=== PATIENT | male | born 2000 | race Two or more races ===

== ENCOUNTER 2025-02-25 14:05 | Inpatient (IN) | payer MEDICAID, SELFPAY ==
[2025-02-25] VITALS (10 sets, daily range): BP systolic 116–133; BP diastolic 71–82; PULSE 91–135; RESP 18–94; TEMP 36.3–38.1; O2SAT 93–96
--- NOTE | 2025-02-25 15:17 | PD.EDURI ---
Upper Respiratory Inf. RME/HPI General Chief Complaint: Flu Like Symptoms Stated Complaint: COUGH FOR 3 MONTHS WITH SHORTNSS OF BREATH Time Seen by Provider: 02/25/25 15:16 Source: patient and family Arrival date/time: 02/25/25 14:05 Mode of arrival: ambulatory Limitations: no limitations and language barrier RME / HPI Complaint: cough and sore throat Onset (ago): month(s) (X 4 months) Duration: constant Severity scale (1-10): 5 Related Data Previous Rx's ?Medication ?Instructions ?Recorded albuterol sulfate 90 mcg/actuation 1 inh inhalation QID #6.7 grams 02/25/25 aerosol inhaler azithromycin 250 mg tablet See Rx Instructions PO .COMPLEX #6 02/25/25 (Zithromax Z-Tacho) tabs promethazine 6.25 mg/5 mL oral 6.25 mg (5 mL) PO TID PRN cough 02/25/25 syrup #120 mL Allergies Allergy/AdvReac Type Severity Reaction Status Date / Time No Known Allergies Allergy Verified 02/25/25 14:08 Review of Systems Constitutional Constitutional: Reports system reviewed and no additional complaints, except as documented Eyes Eyes: Reports system reviewed and no additional complaints, except as documented, Denies dry eyes, Denies exophthalmos and Reports floaters Cardiovascular Cardiovascular: Denies chest pain with activity and Denies claudication ED Exam General Limitations: Present no limitations and language barrier General appearance: Present alert and in no apparent distress Head Head exam: Present atraumatic Eye Eye exam: Present normal appearance, PERRL and EOMI ENT ENT exam: Present normal exam, normal oropharynx and mucous membranes moist Neck Neck exam: Present normal inspection, full ROM and trachea midline Chest Chest inspection: Present normal inspection and symmetric chest wall rise Respiratory Respiratory exam: Present normal lung sounds bilaterally Cardiovascular Cardiovascular exam: Present regular rate, normal rhythm and normal heart sounds Abdominal Exam Abdominal exam: Present soft and normal bowel sounds Extremities Exam Extremities exam: Present normal inspection and full ROM Back Exam Back exam: Present normal inspection and full ROM Neurological Exam Neurological exam: Present alert, oriented X3 and CN II-XII intact Psychiatric Psychiatric exam: Present normal affect and normal mood Skin Skin exam: Present warm, dry, intact and normal color Course Course Course Narrative: Patient will have a chest x-ray months here. Orders Category Date Time Status XR chest 2V Stat Exams 02/25/25 15:20 Ordered Vital Signs Vital signs: Vital Signs Temperature 99.5 F 02/25/25 15:02 Pulse Rate 108 H 02/25/25 15:02 Respiratory Rate 18 02/25/25 15:02 Blood Pressure 133/82 H 02/25/25 15:02 Pulse Oximetry (%) 95 02/25/25 15:02 Oxygen Delivery Method Room Air 02/25/25 15:02 Discharge Plan Plan Patient Disposition: HOME (Self Care) Discharge Disposition comment: NA Patient condition on transfer: Stable Prescriptions/Referrals Prescriptions/Med Rec: New azithromycin [Zithromax Z-Tacho] 250 mg tablet See Rx Instructions .ROUTE .COMPLEX Qty: 6 0RF Rx Instructions: For 250 mg dose pack: take 500 mg today (day 1), then 250 mg for 4 days (days 2-5) albuterol sulfate 90 mcg/actuation HFA aerosol inhaler 1 inh inhalation QID Qty: 6.7 0RF promethazine 6.25 mg/5 mL syrup 6.25 mg PO TID MDD 15 ml PRN (Reason: cough) Qty: 120 0RF Rx Instructions: 3 doses during day; last dose no later than 4 hr before bedtime Problem List Clinical Impression: Bronchitis Impression comment: Bronchitis Patient/Caregiver Discharge Instructions Discharge Activity: resume usual activities Education Materials: ED Bronchitis with Wheezing (Adult) Print Language: Citizen Of [place] PA/ENTERTAINMENT MUSICIAN Supervising Physician PA/ENTERTAINMENT MUSICIAN Supervising Physician: Jett
--- NOTE | 2025-02-25 15:20 | XR_ITS ---
Examination: PA lateral chest 2 views TECHNIQUE: Upright PA lateral chest 2 views Date and time: February 25, 2025 1531 hours INDICATIONS: Shortness of breath wheezing beginning 5 months ago. FINDINGS: Extensive bilateral cavitary parenchymal disease especially in the right middle lobe Normal heart size The osseous structures are intact IMPRESSION: Extensive bilateral cavitary parenchymal disease, differential would include active tuberculosis Recommend CT chest without contrast follow-up
--- NOTE | 2025-02-25 16:12 | XR_ITS ---
Examination: CT chest, without intravenous contrast. Sagittal and coronal 2-D reconstructions. Exam date and time: February 25, 2025 1657 hours INDICATIONS: Coughing fever for months CTDI:vol (mGy) 10.5 DLP: (mGycm) 370 Technique: Multiple 3.0 mm axial sections of the chest to been obtained. Bone and lung density settings are obtained. Sagittal and coronal 2-D reconstructions have been obtained. Low dose protocols were performed. One or more of the following dose reduction techniques were used; automated exposure control, adjustment of the mA and/or KV according to patient size, use of iterative reconstruction technique. Findings: No thoracic aortic aneurysm dilatation Pulmonary artery segments are not enlarged. No paratracheal tracheobronchial or bronchopulmonary adenopathy. 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
--- NOTE | 2025-02-25 16:13 | PD.EDRME ---
Rapid Medical Screening Exam RME Arrival date/time: 02/25/25 14:05 Chief Complaint: Flu Like Symptoms Time Seen by Provider: 02/25/25 15:16 Vital signs: Vital Signs Temperature 99.5 F 02/25/25 15:02 Pulse Rate 108 H 02/25/25 15:02 Respiratory Rate 18 02/25/25 15:02 Blood Pressure 133/82 H 02/25/25 15:02 Pulse Oximetry (%) 95 02/25/25 15:02 Oxygen Delivery Method Room Air 02/25/25 15:02 Presents to the ED with complaint of coughing for months with a rapid loss of weight of up to 25 pounds. Vital signs reviewed by provider: Yes
[2025-02-25 17:01] LABS: Lactate (Lactic Acid) 1.2 mMol/L (0.4-2.0)
[2025-02-25 17:05] LABS: Basophils # (Auto) 0.1 Thou/mm3 (0.0-0.2); Basophils % (Auto) 1 % (0-2.5); Eosinophils # (Auto) 0.4 Thou/mm3 (0.0-0.5); Eosinophils % (Auto) 2 % (0-10); Hematocrit 38.2 % (41.0-53.0); Hemoglobin 12.4 g/dL (13.5-16.0); Immature Granulocytes % (Auto) 1 % (0-0); Lymphocytes # (Auto) 2.9 Thou/mm3 (1.0-4.8); Lymphocytes % (Auto) 16 % (10-50); Mean Corpuscular HGB Conc 32.5 g/dl (31.0-37.0); Mean Corpuscular Hemoglobin 24.9 pg (25.0-35.0); Mean Corpuscular Volume 77 fL (80-100); Monocytes # (Auto) 1.4 Thou/mm3 (0.0-0.8); Monocytes % (Auto) 8 % (0-12); Neutrophils # (Auto) 13.3 Thou/mm3 (1.8-7.7); Neutrophils % (Auto) 73 % (37-80); Nucleated Red Blood Cell % 0 /100 WBC (0); Platelet Count 828 Thou/mm3 (140-440); RDW Standard Deviation 41.2 fL (35.1-43.9); Red Blood Count 4.97 Miln/mm3 (4.50-5.90); White Blood Count 18.2 Thou/mm3 (3.8-10.6)
--- NOTE | 2025-02-25 17:20 | PD.EDURI ---
Upper Respiratory Inf. RME/HPI General Chief Complaint: Flu Like Symptoms Stated Complaint: COUGH FOR 3 MONTHS WITH SHORTNSS OF BREATH Time Seen by Provider: 02/25/25 15:16 Arrival date/time: 02/25/25 14:05 RME / HPI RME / HPI Narrative: 24 year old male with no stated medical history presents to the ED for evaluation of a dry cough beginning 5 months ago. Accompanied by a scratchy throat , 20lbs weight loss over the last 5 months, and shortness of breath. Denies any history of similar symptoms or consulting with PCP. No other associated symptoms or complaints reported. Denies fever, chills, sweating. Denies chest pain. Denies vomiting, diarrhea, constipation. Denies dysuria, urinary frequency and urgency. Related Data Allergies Allergy/AdvReac Type Severity Reaction Status Date / Time No Known Allergies Allergy Verified 02/25/25 14:08 Review of Systems Review of Systems Narrative Review of Systems: GEN: No fever, no chills, + weight loss EYES: No discharge, no visual changes, no pain HEENT: No ear pain, no congestion, +scratchy throat PULM: +shortness of breath, +cough, no congestion CV: No chest pain, no dyspnea on exertion, no palpitations GI: No nausea, no vomiting, no diarrhea, no pain, no constipation : No frequency, no urgency, no dysuria MUSC/SKEL: No joint pain, no back pain SKIN: No rash PSYCH: No hallucinations, no depression HEME/LYMPH: No easy bleeding or bruising tendencies NEURO: No weakness, no headache Past Medical History Past Medical History CARDIAC: Negative Congestive Heart Failure RESPIRATORY: Negative Chronic Obstructive Pulmonary Disease (COPD) GENITOURINARY: Negative Renal Disease ENDOCRINE: Negative Diabetes Mellitus Type 1 or Diabetes Mellitus Type 2 Social History SMOKING STATUS: Former smoker ED Exam Narrative Physical exam: GENERAL APPEARANCE: alert and oriented x 4, well-developed, well-nourished, no acute distress HEENT: Normocephalic, atraumatic; pupils equal, round, reactive to light; EOMI; mucous membranes pink, moist; oropharynx clear NECK: Supple LUNGS: CTABL; no wheezes, no rales, no rhonchi HEART: Regular rate, regular rhythm; normal S1, S2; no murmurs ABDOMEN: non distended; normal BS; soft, no tenderness, no guarding, no rebound; no masses, no organomegaly, no hernia BACK: no CVA tenderness EXTREMITIES: atraumatic; no edema NEUROLOGIC: awake; alert and oriented x4; cranial nerves II-XII grossly intact; no focal sensory or motor deficits PSYCHIATRIC: appropriate mood and affect SKIN: warm, dry, normal color; no rashes Course Course Course Narrative: chest xray ordered to help determine etiology of cough. Quality Measures none Orders Category Date Time Status CT chest wo con Stat Exams 02/25/25 16:12 Completed XR chest 2V Stat Exams 02/25/25 15:20 Completed Blood Culture (Lab) Stat Lab 02/25/25 16:54 Received CBC Stat Lab 02/25/25 16:54 Completed CMP [Comprehensive Metabolic Panel] Stat Lab 02/25/25 16:54 Completed Cocci Serology IgM with reflex to IgG [Cocci Serology, Lab 02/25/25 16:54 Received Unk History] Stat Lactic Acid [Lactate (Lactic Acid)] Stat Lab 02/25/25 16:54 Completed Path Review Blood Smear Stat Lab 02/25/25 16:54 Completed Procalcitonin Stat Lab 02/25/25 16:54 Completed Quantiferon-TB* Stat Lab 02/25/25 16:43 Ordered Vital Signs Vital signs: Vital Signs Temperature 99.5 F 02/25/25 15:02 Pulse Rate 108 H 02/25/25 15:02 Respiratory Rate 18 02/25/25 15:02 Blood Pressure 133/82 H 02/25/25 15:02 Pulse Oximetry (%) 95 02/25/25 15:02 Oxygen Delivery Method Room Air 02/25/25 15:02 Pulse ox is 95% on room air which is adequate. Upper Respiratory Infection MDM Narrative MDM Narrative:: Hortencia Wolfe am scribing for and in the presence of Dr. Frausto. Patient data External records reviewed:: [facility] previous records (No previous visits for review ) Clinical information provided by:: patient Social determinants that could affect healthcare access:: none Patient has the following chronic illnesses:: None reported How is presenting disease/condition affected by chronic disease/condition?: no chronic disease Evaluation data The following diagnostics were reviewed and interpreted by me:: lab results and radiology exam(s) Lab and/or radiology exams considered but not ordered:: None Interpretation Summary: Ordering Physician: Morales Valverde PA-C Date of Service: 02/25/25 Procedure(s): XR chest 2V Accession Number(s): [id number] cc: Chase Sheppard MD; Morales Valverde PA-C; NO PRIMARY/FAMILY,PHYSICIAN~ Examination: PA lateral chest 2 views TECHNIQUE: Upright PA lateral chest 2 views Date and time: February 25, 2025 1531 hours INDICATIONS: Shortness of breath wheezing beginning 5 months ago. FINDINGS: Extensive bilateral cavitary parenchymal disease especially in the right middle lobe Normal heart size The osseous structures are intact IMPRESSION: Extensive bilateral cavitary parenchymal disease, differential would include active tuberculosis Recommend CT chest without contrast follow-up Dictated By: Chase Sheppard MD Signed By: <Electronically signed by Chase Sheppard MD in OV> 02/25/25 1547 Ordering Physician: Morales Valverde PA-C Date of Service: 02/25/25 Procedure(s): CT chest wo con Accession Number(s): [id number] cc: Chase Sheppard MD; Morales Valverde PA-C; NO PRIMARY/FAMILY,PHYSICIAN~ Examination: CT chest, without intravenous contrast. Sagittal and coronal 2-D reconstructions. Exam date and time: February 25, 2025 1657 hours INDICATIONS: Coughing fever for months CTDI:vol (mGy) 10.5 DLP: (mGycm) 370 Technique: Multiple 3.0 mm axial sections of the chest to been obtained. Bone and lung density settings are obtained. Sagittal and coronal 2-D reconstructions have been obtained. Low dose protocols were performed. One or more of the following dose reduction techniques were used; automated exposure control, adjustment of the mA and/or KV according to patient size, use of iterative reconstruction technique. Findings: No thoracic aortic aneurysm dilatation Pulmonary artery segments are not enlarged. No paratracheal tracheobronchial or bronchopulmonary adenopathy. 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 (list below): Yes Consultation #1 (Physician, Specialty, Details): I spoke with resident working with hospitalist Dr. Becerra. Discussed patients PMHx, HPI, ED course, exam findings, labs, and radiology results. Diagnosis Upper Respiratory Differential Diagnosis: upper respiratory infection, sinusitis, viral infection, bronchitis, influenza and pharyngitis Most likely diagnosis given after review of the tests above:: Cavitary lung lesions Admission Indicated Admission indicated?: indicated Admission Request Was there a request for admission?: Yes Admission Attestation Admission request attestation: Discussed case with [] from Hospitalist service regarding admission. Discussed patients ED course, exam findings, labs, and radiology results. The Hospitalist [agrees,declines] to accept the patient for admission. Disposition Plan Disposition Plan: Admit Discharge Plan Plan Patient Disposition: Admit Acute Care w/in Hospital Problem List Clinical Impression: Cavitary lesion of lung Impression comment: Bronchitis Patient/Caregiver Discharge Instructions Discharge Activity: resume usual activities Print Language: [place] Stand Alone Forms: Geovanna Award Info., Patient Portal Info Letter
[2025-02-25 17:27] LABS: Path Review Blood Smear Sent to Pathologist
[2025-02-25 17:30] LABS: Alanine Aminotransferase 16 U/L (10-49); Albumin, Serum 4.4 gm/dL (3.5-5.0); Albumin/Globulin Ratio 1.1 (1.2-2.2); Alkaline Phosphatase 77 U/L (46-116); Anion Gap 11 (7-16); Aspartate Amino Transferase 19 U/L (0-34); BUN/Creatinine Ratio 11 Ratio (12-20); Bilirubin,Total 0.4 mg/dL (0.3-1.2); Blood Urea Nitrogen 9 mg/dL (9-23); Calcium 8.8 mg/dL (8.3-10.6); Calcium (Corrected) 8.8 mg/dL (8.5-10.1); Carbon Dioxide 25.1 mMol/L (20.0-31.0); Chloride 99 mMol/L (98-107); Creatinine (Component) 0.8 mg/dL (0.6-1.3); Glucose 103 mg/dL (74-106); Osmolality,Calculated 268 (275-295); Procalcitonin 0.11 ng/ml (0.0-0.49); Sodium 135 mMol/L (136-145); Total Protein 8.4 gm/dL (5.7-8.2); eGFR > 60 See Note
[2025-02-25 17:50] LABS: HIV (1&2) Antibody Rapid Non-Reactive
--- NOTE | 2025-02-25 18:37 | PD.RESHP ---
Documentation for date of: 02/25/25 [facility] History of Present Illness Chief complaint: SOB, Sore throat, Cough History of present illness: 24-year-old male with no relevant past medical history was admitted to the hospital on 03/03/2025 after coming to the ED with complaints of cough and shortness of breath. On assessment patient stated that he has been having around 5 months of some sore throat accompanied with some cough which is sometimes productive and sometimes nonproductive. He states that he has also lost around 20 pounds in the last 6 months, but he stated that this is likely because he has been sometimes skipping breakfast because he has been either lazy or just forgets to eat. Patient stated that he has not had any blood in the sputum when he does have some productive cough and he also denied having any night sweats. Patient states that he moved from [place] around 2 years ago, but has not been out of the country ever since. He states he has not had any sick contacts and that he lives alone at this time. Patient currently works handling crustaceans/seafood, but he did work on the joy around 1 month and a half when he initially came to the clinic. He also stated that he has smoked marijuana, but denies any vaping or smoking. Denies any fevers, chills, sweats, diarrhea, blood in the urine, blood in the stools, or abdominal pain. ED course: Initially came in tachycardic and hypertensive, but afebrile. Initial labs were relevant for leukocytosis (18.2) and thrombocytosis (828). Initial imaging included chest x-ray which showed some extensive bilateral cavitary parenchymal disease and chest CT which showed severe cavitary parenchymal disease throughout both lungs. Some miliary nodular pattern also was seen throughout both lungs in the chest CT. PMH: No relevant past medical history Social Hx: Denies smoking cigarettes, admits to social drinking, admits smoking marijuana Medications: None Review of Systems Review of Systems Narrative Review of Systems: Constitutional: Denies sweats, Admits weight loss, Denies fever, Denies chills. HEENT: Denies hearing loss, Denies ear pain, Admits sore throat, Denies postnasal drip, Denies double vision, Denies blurry vision. Respiratory: Admits shortness of breath, Admits cough, Denies wheezing. Cardiovascular: Denies chest pain, Denies palpitations, Denies sudden loss of consciousness. GI: Denies blood in stool, Denies constipation, Denies abdominal pain, Denies difficulty swallowing, Denies nausea or vomit. : Denies urinary incontinence, Denies pain while urinating, Denies increased urinary frequency. MSK: Denies joint pain, Denies joint swelling, Denies numbness. Skin: Denies rash, Denies itching, Denies easy bruising. Neuro: Denies headaches, Denies dizziness, Denies seizures. Past Medical History Past Medical History CARDIAC: Negative Congestive Heart Failure RESPIRATORY: Negative Chronic Obstructive Pulmonary Disease (COPD) GENITOURINARY: Negative Renal Disease ENDOCRINE: Negative Diabetes Mellitus Type 1 or Diabetes Mellitus Type 2 Social History SMOKING STATUS: Former smoker Exam Vital Signs Temp Pulse Resp BP Pulse Ox O2 Del Method 99.5 F 108 H 18 133/82 H 95 Room Air 02/25/25 15:02 02/25/25 15:02 02/25/25 15:02 02/25/25 15:02 02/25/25 15:02 02/25/25 15:02 Narrative Exam General: A/O x3, no acute distress, well-nourished, well-developed Eyes: PERRL, EOMI. Anicteric, vision grossly intact. Ears: No ear pain, no ear discharge, Hearing grossly intact. Nose: No nasal discharge. Mouth/Throat: Moist mucous membranes, no redness, no lesions. Neck: Neck supple, non-tender, no cervical lymphadenopathy. Lungs: Clear АНДРЕЙ to auscultation and percussion, No accessory muscle use. Cardio: Normal S1/S2, regular rhythm, tachycardic, no murmurs, no JVD Abdomen: Soft, non-tender, no palpable masses, peristalsis present, no guarding or rebound. Extremities: Symmetrical, no significant deformities, no peripheral edema , non-tender, peripheral pulses presents. Skin: No rashes, no lesions, warm to touch. Neuro: No focal neurological deficits. motor and sensory intact Psych: Cooperative, appropriate mood and effect. Results: Labs 02/26/25 04:43 02/26/25 04:43 Labs: Short CBC 02/25/25 Range/Units 16:54 WBC 18.2 H (3.8-10.6) Thou/mm3 Hgb 12.4 L (13.5-16.0) g/dL Hct 38.2 L (41.0-53.0) % Plt Count 828 H (140-440) Thou/mm3 BMP 02/25/25 16:54 Sodium 135 L Potassium 4.0 Chloride 99 Carbon Dioxide 25.1 BUN 9 Creatinine 0.8 Glucose 103 Calcium 8.8 Liver Function 02/25/25 Range/Units 16:54 Total Bilirubin 0.4 (0.3-1.2) mg/dL AST 19 (0-34) U/L ALT 16 (10-49) U/L Alkaline Phosphatase 77 (46-116) U/L Albumin 4.4 (3.5-5.0) gm/dL Quality Measures Quality Measures none Medications Home Medications and Allergies Home Medications ?Medication ?Instructions ?Recorded ?Confirmed ?Type No Known Home Medications 02/26/25 02/26/25 History Allergies Allergy/AdvReac Type Severity Reaction Status Date / Time No Known Allergies Allergy Verified 02/25/25 14:08 Visit Medications Acetaminophen (Acetaminophen 325 Mg Tablet) 650 mg PO Q6H PRN PRN Reason: pain and Fever >100.4 Stop: 03/27/25 18:31 Hydrocodone Bitart/Acetaminophen (Hydrocodone/Apap 5/325 Tablet) 1 tab PO Q4HR PRN PRN Reason: PAIN SCALE 4-6 (Moderate Stop: 03/02/25 18:31 Azithromycin (Azithromycin 250 Mg Tablet) 500 mg PO QDAY YUMIKO Stop: 03/04/25 18:44 Enoxaparin Sodium (Enoxaparin Sod Inj 40 Mg/0.4 Ml Syringe) 40 mg SC QDAY [facility] Stop: 03/12/25 08:59 Sodium Chloride (Ns) 1,000 mls @ 80 mls/hr IV .[id number] YUMIKO Stop: 02/26/25 19:44 Sodium Chloride (Ns) 1,000 mls @ 999 mls/hr IV .Q1H1M ONE Stop: 02/25/25 19:32 Ceftriaxone Sodium 1 gm/ (Sodium Chloride) 50 mls @ 100 mls/hr IV QDAY YUMIKO Stop: 03/04/25 18:34 Ondansetron HCl (Ondansetron Inj 2 Mg/Ml Inj 2 Ml) 4 mg IV Q6H PRN; Protocol PRN Reason: NAUSEA OR VOMITING Stop: 03/27/25 18:31 Sodium Chloride (Sodium Chloride Rt 10% 15 Ml Nebu) 5 ml INH X1 ONE Stop: 02/25/25 18:33 Sodium Chloride (Sodium Chloride Rt 10% 15 Ml Nebu) 5 ml INH X1 ONE Stop: 02/25/25 18:33 Assessment & Plan Plan 24-year-old male with no relevant past medical history was admitted to the hospital 02/25/2025 for TB rule out in the setting of cavitary lesions on imaging. #Bilateral cavitary lesions #Shortness of breath #Cough #Sore throat #Leukocytosis #TB rule out Patient came in with complaints of some shortness of breath along with cough and sore throat for the past 5 months. Patient denied any night sweats or hemoptysis. Patient's chest CT that showed severe cavitary disease in both lungs and chest x-ray also showed cavitary lesions in both lungs. Patient states that he has not had any sick contacts. Patient does not recall having any prior pulmonary issues in the past when he was a child. Patient's WBCs were 18.2 Plan: Start azithromycin and Rocephin (02/25/2025?) IV fluids bolus plus maintenance Cocci ordered and pending QuantiFERON ordered and pending AFB sputum every 8 ordered Sputum culture and Gram stain every 8 ordered Isolation and airborne precautions ID consulted, appreciate recommendations #Thrombocytosis Patient's platelets were 828 Most likely hemoconcentration as patient did appear to be a little bit dehydrated. Plan: IV fluids Will continue to monitor After examination of the patient and review of the clinical data I in my opinion I do feel that the patient needs to be admitted to the hospital for further treatment and evaluation of possible TB versus cocci versus other infectious disease process in the lungs. Disposition: Patient admitted to med surg for TB rule out.. Diet: regular GI prophylaxis: not indicated DVT prophylaxis: lovenox Code:Full code Case disclosed with Attending Dr. Hernan Gomez PGY1 Disclaimer: Even though this this note was dictated by speech recognition and even though it was carefully revised there may still be minor errors in medical administrative due to voice recognition software. Attending Provider Attestation/Addendum I reviewed labs, imaging, EKG, home medications and prior available records. Face to face evaluation was performed by me. I have personally examined the patient and discussed assessment and plan with the IM team. I reviewed the resident note and agree with the plan with exceptions as below. Possible sepsis secondary to pneumonia Cavitary lesion of lung Leukocytosis Thrombocytosis Patient's chest CT that showed severe cavitary disease in both lungs Started IV ceftriaxone and azithromycin Ordered cocci IgM Ordered AFB x 3 and QuantiFERON Continue IV fluids Follow-up cultures Consulted ID Monitor CBC
[2025-02-25] MEDS: ACETAMINOPHEN 325 MG TABLET 650 MG PO (18:57)
[2025-02-25] MEDS: SODIUM CHLORIDE 0.9% 1000 ML 1,000 ML 999 ML IV (19:00)
[2025-02-25] MEDS: cefTRIAXone/D5w 1gm IV premix 1 GM/50 ML BAG IV (19:21)
[2025-02-25] MEDS: SODIUM CHLORIDE RT 10% 15 ML NEBU 5 ML INH (19:44)
--- NOTE | 2025-02-25 19:57 | PC.RT ---
sputum/ AFB collected and sent to lab.
--- NOTE | 2025-02-25 19:59 | PC.NURSE ---
Report recieved from Willie RN. pt up to BR. RT in rm giving NEB tx. pt appears in NAD.
[2025-02-25 20:03] LABS: Cult AFB Sendout- Sputum* See Sep Rpt
[2025-02-25] MEDS: AZITHROMYCIN 250 MG TABLET 500 MG PO (20:09)
[2025-02-25] MEDS: SODIUM CHLORIDE 0.9% 1000 ML 1,000 ML 80 ML IV (20:11)
--- NOTE | 2025-02-25 21:10 | PC.NURSE ---
ATTEMPTED TO GIVE REPORT. CHIARA COLON IS BUSEY AND WILL CALL BACK.
--- NOTE | 2025-02-25 21:38 | PC.NURSE ---
RESTING QUIETLY . APPEARS IN NO DISTRESS. SABI CALLED TO DARLENE GUADARRAMA
[2025-02-26] VITALS (7 sets, daily range): BP systolic 111–118; BP diastolic 63–79; PULSE 80–108; RESP 18–98; TEMP 36.1–37.4; O2SAT 95–99
--- NOTE | 2025-02-26 04:28 | PC.RT ---
Collected 2nd AFB sputum at 0410. No induction needed. Also collected sputum and gs
[2025-02-26 04:50] LABS: Cult AFB Sendout- Sputum* See Sep Rpt
[2025-02-26 05:14] LABS: Cult AFB Sendout- Sputum* See Sep Rpt
[2025-02-26 05:34] LABS: Quantiferon-TB* See Sep Rpt
[2025-02-26 05:56] LABS: Basophils # (Auto) 0.1 Thou/mm3 (0.0-0.2); Basophils % (Auto) 1 % (0-2.5); Eosinophils # (Auto) 0.5 Thou/mm3 (0.0-0.5); Eosinophils % (Auto) 3 % (0-10); Hematocrit 39.9 % (41.0-53.0); Hemoglobin 12.6 g/dL (13.5-16.0); Immature Granulocytes % (Auto) 0 % (0-0); Immature Granulocytes Auto 0.04 Thou/mm3 (0.00-0.00); Lymphocytes # (Auto) 2.8 Thou/mm3 (1.0-4.8); Lymphocytes % (Auto) 20 % (10-50); Mean Corpuscular HGB Conc 31.6 g/dl (31.0-37.0); Mean Corpuscular Hemoglobin 24.5 pg (25.0-35.0); Mean Corpuscular Volume 78 fL (80-100); Monocytes # (Auto) 1.6 Thou/mm3 (0.0-0.8); Monocytes % (Auto) 11 % (0-12); Neutrophils # (Auto) 9.2 Thou/mm3 (1.8-7.7); Neutrophils % (Auto) 65 % (37-80); Nucleated Red Blood Cell % 0 /100 WBC (0); Platelet Count 820 Thou/mm3 (140-440); Red Blood Count 5.14 Miln/mm3 (4.50-5.90); White Blood Count 14.1 Thou/mm3 (3.8-10.6)
[2025-02-26 06:19] LABS: Alanine Aminotransferase 16 U/L (10-49); Albumin, Serum 4.2 gm/dL (3.5-5.0); Albumin/Globulin Ratio 1.1 (1.2-2.2); Alkaline Phosphatase 75 U/L (46-116); Anion Gap 10 (7-16); Aspartate Amino Transferase 19 U/L (0-34); BUN/Creatinine Ratio 11 Ratio (12-20); Bilirubin,Total 0.6 mg/dL (0.3-1.2); Blood Urea Nitrogen 8 mg/dL (9-23); Calcium 9.3 mg/dL (8.3-10.6); Calcium (Corrected) 9.3 mg/dL (8.5-10.1); Carbon Dioxide 28.2 mMol/L (20.0-31.0); Chloride 101 mMol/L (98-107); Cholesterol 150 mg/dL (132-200); Creatinine (Component) 0.7 mg/dL (0.6-1.3); Estimated Creatinine Clearance 150.8 mL/min (>60); Glucose 95 mg/dL (74-106); HDL Cholesterol 30 mg/dL (40-60); LDL Cholesterol,Calculated 103 mg/dL (0-130); Osmolality,Calculated 275 (275-295); Potassium 4.2 mMol/L (3.4-5.1); Sodium 139 mMol/L (136-145); Thyroid Stimulating Hormone 4.63 uIU/mL (0.55-4.78); Total Protein 8.2 gm/dL (5.7-8.2); Triglycerides 84 mg/dL (30-150); eGFR > 60 See Note
--- NOTE | 2025-02-26 09:00 | PC.SS ---
Initial assessment: this is 24 year old male admitted for T/B rule out. Patient is [place] speaking. Patient confirmed demographic information, reports living alone. Patient reports being independent with ADL's. Patient denies use of DME. Patient assigned his cousin, Tito Sheffield as his emergency contact. Patient denies having a PCP. Patient informs he will discharge home and family able to transport when medically cleared. No needs identified at this time. D/c plan: home Next of kin: cousinTito
[2025-02-26] MEDS: AZITHROMYCIN 250 MG TABLET 500 MG PO (09:03)
[2025-02-26] MEDS: cefTRIAXone/D5w 1gm IV premix 1 GM/50 ML BAG IV (09:04)
[2025-02-26] MEDS: ENOXAPARIN SOD INJ 40 MG/0.4 ML SYRINGE SC (09:05)
--- NOTE | 2025-02-26 09:09 | ESPR_ITS ---
Documentation for date of: 02/26/25 Subjective Subjective Interval history: Patient was seen and examined at bedside this morning. Overnight patient did spike a low-grade fever at 100.5. Patient's WBCs are downtrending this morning and he has no other complaints at this time. Exam Vital Signs Temp Pulse Resp BP Pulse Ox O2 Del Method 97.0 F 80 18 113/63 97 Room Air 02/26/25 08:00 02/26/25 08:00 02/26/25 08:00 02/26/25 08:00 02/26/25 08:00 02/26/25 08:00 Narrative Exam General: A/O x3, no acute distress, well-nourished, well-developed Eyes: PERRL, EOMI. Anicteric, vision grossly intact. Ears: No ear pain, no ear discharge, Hearing grossly intact. Nose: No nasal discharge. Mouth/Throat: Moist mucous membranes, no redness, no lesions. Neck: Neck supple, non-tender, no cervical lymphadenopathy. Lungs: Clear АНДРЕЙ to auscultation and percussion, No accessory muscle use. Cardio: Normal S1/S2, regular rhythm, tachycardic, no murmurs, no JVD Abdomen: Soft, non-tender, no palpable masses, peristalsis present, no guarding or rebound. Extremities: Symmetrical, no significant deformities, no peripheral edema , non-tender, peripheral pulses presents. Skin: No rashes, no lesions, warm to touch. Neuro: No focal neurological deficits. motor and sensory intact Psych: Cooperative, appropriate mood and effect. Objective Labs 02/27/25 05:23 02/27/25 05:23 Labs: Laboratory Results - last 24 hr 02/25/25 02/26/25 16:54 04:43 WBC 18.2 H 14.1 H RBC 4.97 5.14 Hgb 12.4 L 12.6 L Hct 38.2 L 39.9 L MCV 77 L 78 L MCH 24.9 L 24.5 L MCHC 32.5 31.6 RDW Std Deviation 41.2 42.0 Plt Count 828 H 820 H Neut % (Auto) 73 65 Lymph % (Auto) 16 20 [place] % (Auto) 8 11 Eos % (Auto) 2 3 Baso % (Auto) 1 1 Neut # (Auto) 13.3 H 9.2 H Lymph # (Auto) 2.9 2.8 [place] # (Auto) 1.4 H 1.6 H Eos # (Auto) 0.4 0.5 Baso # (Auto) 0.1 0.1 Immature Gran # (Auto) 0.10 H 0.04 H Absolute Nucleated RBC 0.00 0.00 Immature Gran % 1 H 0 Nucleated RBC % 0 0 Smear Path Review Sent to Pathologist Sodium 135 L 139 Potassium 4.0 4.2 Chloride 99 101 Carbon Dioxide 25.1 28.2 Anion Gap 11 10 BUN 9 8 L Creatinine 0.8 0.7 Estim Creat Clear Calc Not Performed. 150.8 eGFR > 60 > 60 BUN/Creatinine Ratio 11 L 11 L Glucose 103 95 Calculated Osmolality 268 L 275 Lactic Acid 1.2 Calcium 8.8 9.3 Corrected Calcium 8.8 9.3 Magnesium 2.0 Total Bilirubin 0.4 0.6 AST 19 19 ALT 16 16 Alkaline Phosphatase 77 75 Total Protein 8.4 H 8.2 Albumin 4.4 4.2 Globulin 4.0 H 4.0 H Albumin/Globulin Ratio 1.1 L 1.1 L Triglycerides 84 Cholesterol 150 LDL Cholesterol, Calc 103 HDL Cholesterol 30 L Cholesterol/HDL Ratio 5.0 Procalcitonin 0.11 TSH 4.63 HIV 1&2 Antibody Rapid Non-Reactive Quality Measures Quality Measures none Assessment & Plan Assessment Current Active Medications: Generic Name Dose Route Start Last Admin Trade Name Freq PRN Reason Stop Dose Admin Acetaminophen 650 mg 02/25/25 18:32 02/25/25 18:57 Acetaminophen 325 Mg Tablet PO 03/27/25 18:31 650 mg Q6H PRN Administration pain 1-3 and Fever >100.4 Hydrocodone Bitart/Acetaminophen 1 tab 02/25/25 18:32 Hydrocodone/Apap 5/325 Tablet PO 03/02/25 18:31 Q4HR PRN PAIN SCALE 4-6 (Moderate Azithromycin 500 mg 02/25/25 18:45 02/26/25 09:03 Azithromycin 250 Mg Tablet PO 03/04/25 18:44 500 mg QDAY YUMIKO Administration Enoxaparin Sodium 40 mg 02/26/25 09:00 02/26/25 09:05 Enoxaparin Sod Inj 40 Mg/0.4 Ml Syringe SC 03/12/25 08:59 40 mg QDAY YUMIKO Administration Sodium Chloride 1,000 mls @ 80 mls/hr 02/25/25 18:45 02/25/25 20:11 Ns IV 02/26/25 19:44 80 mls/hr .[id number] YUMIKO Administration Ceftriaxone Sodium/Dextrose 1 gm in 50 mls @ 100 mls/hr 02/25/25 19:15 02/26/25 09:04 Rocephin/D5w 1gm Iv Premix IV 03/04/25 19:14 100 mls/hr QDAY YUMIKO Administration Ondansetron HCl 4 mg 02/25/25 18:32 Ondansetron Inj 2 Mg/Ml Inj 2 Ml IV 03/27/25 18:31 Q6H PRN NAUSEA OR VOMITING Protocol Plan 24-year-old male with no relevant past medical history was admitted to the hospital 02/25/2025 for TB rule out in the setting of cavitary lesions on imaging. #Bilateral cavitary lesions #Shortness of breath #Cough #Sore throat #Leukocytosis #TB rule out Patient came in with complaints of some shortness of breath along with cough and sore throat for the past 5 months. Patient denied any night sweats or hemoptysis. Patient's chest CT that showed severe cavitary disease in both lungs and chest x-ray also showed cavitary lesions in both lungs. Patient states that he has not had any sick contacts. Patient does not recall having any prior pulmonary issues in the past when he was a child. Patient's WBCs were 18.2 initially, downtrending today Plan: Continue azithromycin and Rocephin (02/25/2025?) IV fluids Cocci pending QuantiFERON ordered and pending AFB sputum pending Sputum culture and Gram stain pending Isolation and airborne precautions ID consulted, appreciate recommendations #Thrombocytosis Patient's platelets were 828 initially and 820 today Most likely hemoconcentration as patient did appear to be a little bit dehydrated. Plan: IV fluids Will continue to monitor Disposition: Patient pending ID reccs and cultures Diet: regular GI prophylaxis: not indicated DVT prophylaxis: lovenox Code:Full code Case disclosed with Attending Dr. Hernan Gomez PGY1 Disclaimer: Even though this this note was dictated by speech recognition and even though it was carefully revised there may still be minor errors in career based intervention coordinator due to voice recognition software. Attending Provider Attestation/Addendum I reviewed labs, imaging, EKG, home medications and prior available records. Face to face evaluation was performed by me. I have personally examined the patient and discussed assessment and plan with the IM team. I reviewed the resident note and agree with the plan with exceptions as below. Possible sepsis secondary to pneumonia Cavitary lesion of lung Leukocytosis Thrombocytosis Heart rate improved with IV fluids HIV is negative Patient's chest CT that showed severe cavitary disease in both lungs Ordered cocci IgM: Negative Ordered AFB x 3 and QuantiFERON Gave IV fluids Follow-up cultures Discussed with pulmonology: Concern for disseminated cocci. Ordered LP. Repeat chest x-ray. Repeat cocci serology in few days. Empiric treatment with vancomycin and fluconazole Consulted ID Monitor CBC: WBC is downtrending
[2025-02-26] MEDS: SODIUM CHLORIDE 0.9% 1000 ML 1,000 ML 80 ML IV (09:14)
[2025-02-26 12:33] LABS: Cocci Serology, IgM Negative (Negative)
--- NOTE | 2025-02-26 14:53 | XR_ITS ---
Examination: PA lateral chest 2 views TECHNIQUE: Upright PA lateral chest 2 views Date and time: February 26, 2025, 2122 hours Comparison February 26, 2024 INDICATIONS: Shortness of breath and wheezing today. FINDINGS: Extensive bilateral cavitary parenchymal disease again noted, please see the CT chest report February 25, 2025. Normal heart size Worsening pneumonia right base IMPRESSION: Extensive bilateral cavitary parenchymal disease Worsening pneumonia right base
[2025-02-26] MEDS: FLUCONAZOLE 100 MG TABLET 400 MG PO (15:21)
[2025-02-26] MEDS: Vancomycin Inj 2,000 MG in SODIUM CHLORIDE 0.9% 500 ML 500 ML 150 MG IV (15:22)
[2025-02-26 15:47] LABS: RA Screen Negative (Negative)
--- NOTE | 2025-02-26 16:25 | PC.SS ---
Rounding note: T/B rule out pending.
[2025-02-27] VITALS (8 sets, daily range): BP systolic 96–119; BP diastolic 65–80; PULSE 60–112; RESP 18–96; TEMP 36.3–37.6; O2SAT 94–99
[2025-02-27 05:38] LABS: Basophils # (Auto) 0.1 Thou/mm3 (0.0-0.2); Basophils % (Auto) 1 % (0-2.5); Eosinophils # (Auto) 0.5 Thou/mm3 (0.0-0.5); Eosinophils % (Auto) 4 % (0-10); Hematocrit 37.8 % (41.0-53.0); Hemoglobin 11.7 g/dL (13.5-16.0); Immature Granulocytes % (Auto) 1 % (0-0); Immature Granulocytes Auto 0.06 Thou/mm3 (0.00-0.00); Lymphocytes # (Auto) 2.3 Thou/mm3 (1.0-4.8); Lymphocytes % (Auto) 17 % (10-50); Mean Corpuscular Hemoglobin 24.4 pg (25.0-35.0); Mean Corpuscular Volume 79 fL (80-100); Monocytes # (Auto) 1.7 Thou/mm3 (0.0-0.8); Monocytes % (Auto) 13 % (0-12); Neutrophils # (Auto) 8.6 Thou/mm3 (1.8-7.7); Neutrophils % (Auto) 65 % (37-80); Nucleated Red Blood Cell % 0 /100 WBC (0); Platelet Count 768 Thou/mm3 (140-440); RDW Standard Deviation 43.3 fL (35.1-43.9); White Blood Count 13.3 Thou/mm3 (3.8-10.6)
[2025-02-27 06:04] LABS: Alanine Aminotransferase 16 U/L (10-49); Albumin, Serum 3.9 gm/dL (3.5-5.0); Albumin/Globulin Ratio 1.1 (1.2-2.2); Alkaline Phosphatase 69 U/L (46-116); Anion Gap 9 (7-16); Aspartate Amino Transferase 17 U/L (0-34); BUN/Creatinine Ratio 10 Ratio (12-20); Bilirubin,Total 0.3 mg/dL (0.3-1.2); Blood Urea Nitrogen 8 mg/dL (9-23); Calcium 8.6 mg/dL (8.3-10.6); Calcium (Corrected) 8.7 mg/dL (8.5-10.1); Carbon Dioxide 27.9 mMol/L (20.0-31.0); Chloride 102 mMol/L (98-107); Creatinine (Component) 0.8 mg/dL (0.6-1.3); Globulin 3.6 gm/dL (2.3-3.5); Glucose 96 mg/dL (74-106); Osmolality,Calculated 275 (275-295); Potassium 3.9 mMol/L (3.4-5.1); Sodium 139 mMol/L (136-145); Total Protein 7.5 gm/dL (5.7-8.2); eGFR > 60 See Note
--- NOTE | 2025-02-27 09:00 | XR_ITS ---
Examination: AP chest single view TECHNIQUE: Sitting AP chest portable single view Date and time: February 27, 2025 0858 hours Comparison February 26, 2025 INDICATIONS: Chest pain. FINDINGS: Extensive bilateral cavitary parenchymal disease Normal heart size The osseous structures are intact IMPRESSION: Again noted extensive bilateral cavitary parenchymal disease
[2025-02-27] MEDS: FLUCONAZOLE 100 MG TABLET 400 MG PO (09:10)
[2025-02-27] MEDS: AZITHROMYCIN 250 MG TABLET 500 MG PO (09:10)
[2025-02-27] MEDS: cefTRIAXone/D5w 1gm IV premix 1 GM/50 ML BAG IV (09:11)
[2025-02-27] MEDS: ENOXAPARIN SOD INJ 40 MG/0.4 ML SYRINGE SC (09:11)
--- NOTE | 2025-02-27 10:02 | ECHO_ITS ---
Transthoracic Echo Report Ht (in): 67 Wt (lb): 159 Exam Location: Echo Lab Status: Inpatient Wall Covering Installer: Vanessa Blankenship Indications: Procedure Performed: BP: / HR: MEASUREMENTS (Male / Female) Normal Values 2D ECHO LV Diastolic Diameter PLAX 4.4 cm 4.2 - 5.9 / 3.9 - 5.3 cm LV Systolic Diameter PLAX 3.0 cm IVS Diastolic Thickness 0.7 cm 0.6 - 1.0 / 0.6 - 0.9 cm LVPW Diastolic Thickness 0.9 cm 0.6 - 1.0 / 0.6 - 0.9 cm LV Relative Wall Thickness 0.4 LVOT Diameter 1.8 cm Aortic Root Diameter 2.9 cm LA Systolic Diameter LX 2.3 cm 3.0 - 4.0 / 2.7 - 3.8 cm LA Volume Index 13.2 cm?/m? 16 - 28 cm?/m? DOPPLER AV Peak Velocity 116.0 cm/s AV Peak Gradient 5.4 mmHg AV Mean Gradient 3.0 mmHg AV Velocity Time Integral 20.5 cm LVOT Peak Velocity 100.0 cm/s LVOT Peak Gradient 4.0 mmHg LVOT Velocity Time Integral 16.8 cm AV Area Cont Eq vti 2.1 cm? AV Area Cont Eq pk 2.2 cm? MV Area PHT 4.1 cm? Mitral E Point Velocity 86.3 cm/s Mitral A Point Velocity 76.6 cm/s Mitral E to A Ratio 1.1 LV E' Lateral Velocity 16.1 cm/s Mitral E to LV E' Lateral Ratio 5.4 LV E' Septal Velocity 12.4 cm/s Mitral E to LV E' Septal Ratio 7.0 FINDINGS Left Ventricle Normal left ventricular size, wall thickness, systolic function with no obvious regional wall motion abnormalities. Normal left ventricular diastolic function. The ejection fraction is visually estimated at 55-60 %. Right Ventricle The right ventricle is normal in size and systolic function. Left Atrium The left atrium is normal by two-dimensional, color flow and Doppler imaging with no structural abnormalities, no thrombus formation present. Right Atrium The right atrium is normal by two-dimensional imaging, color flow and Doppler imaging with no structural abnormalities, no thrombus formation present. Atrial Septum The interatrial septum appears normal with no evidence of a shunt. Aorta The aorta is normal by two-dimensional, color flow and Doppler interrogation. Mitral Valve The mitral valve is normal by two-dimensional, color flow and Doppler interrogation. There is no significant mitral valve regurgitation, stenosis or prolapse. Aortic Valve The aortic valve is trileaflet and normal by two-dimensional, color flow and Doppler interrogation. There is no significant aortic valve regurgitation. Tricuspid Valve The tricuspid valve is normal by two-dimensional, color flow and Doppler interrogation. There is no significant tricuspid valve regurgitation. Pulmonic Valve The pulmonic valve is not well visualized. There is no significant pulmonic valve regurgitation. Vessels The pulmonary artery appears normal. The inferior vena cava pulmonary and hepatic veins appear normal. Pericardium The pericardium is normal by two-dimensional imaging. There is no significant pericardial effusion. CONCLUSIONS Indication: R/O endocarditis No clear valvular vegetations noted. TTE suboptimal and consider RUTH if clinical index of suspicion is high. Normal LV size and function. Estimated EF 55-60%. Normal LV diastolic function. Normal RV size and function. No significant valvular abnormalities. Trace TR and MR. Riaz Enriquez (Electronically Signed) Final Date: 02 Mar 2025 01:19
--- NOTE | 2025-02-27 10:52 | PD.IDPROG ---
Subjective Subjective Interval history: no cough no hemoptysis. here for other reasons and cxr done that is abnormal. no hx of tb or cocci noted. cocci igM neg. he denies wt loss although ed notes suggest rapid wt loss noted. Exam Vital Signs Temp Pulse Resp BP Pulse Ox O2 Del Method 97.3 F 83 18 107/65 99 Room Air 02/27/25 08:00 02/27/25 08:00 02/27/25 08:00 02/27/25 08:00 02/27/25 08:00 02/27/25 08:00 Narrative Exam benign exam. grossly normal. not emaciated or unusually thin. Objective - Internal Medicine Labs 02/27/25 05:23 02/27/25 05:23 Labs: Laboratory Results - last 24 hr 02/25/25 02/26/25 02/27/25 16:54 04:43 05:23 WBC 13.3 H RBC 4.80 Hgb 11.7 L Hct 37.8 L MCV 79 L MCH 24.4 L MCHC 31.0 RDW Std Deviation 43.3 Plt Count 768 H D Neut % (Auto) 65 Lymph % (Auto) 17 [place] % (Auto) 13 H Eos % (Auto) 4 Baso % (Auto) 1 Neut # (Auto) 8.6 H Lymph # (Auto) 2.3 [place] # (Auto) 1.7 H Eos # (Auto) 0.5 Baso # (Auto) 0.1 Immature Gran # (Auto) 0.06 H Absolute Nucleated RBC 0.00 Immature Gran % 1 H Nucleated RBC % 0 Sodium 139 Potassium 3.9 Chloride 102 Carbon Dioxide 27.9 Anion Gap 9 BUN 8 L Creatinine 0.8 Estim Creat Clear Calc 132.0 eGFR > 60 BUN/Creatinine Ratio 10 L Glucose 96 Calculated Osmolality 275 Calcium 8.6 Corrected Calcium 8.7 Magnesium 2.0 Total Bilirubin 0.3 AST 17 ALT 16 Alkaline Phosphatase 69 Total Protein 7.5 Albumin 3.9 Globulin 3.6 H Albumin/Globulin Ratio 1.1 L Rheumatoid Factor Negative Coccidioides IgM Ab Negative Assessment & Plan A&P Narrative cavitary lung disease on cxr when pt reports he came for something else. cocci is much more common than tb limited pmh you have already started the tb w/u (see orders) if no sputum , then ok to get a qtf (pending) and watch him at home on flucon and cefuoxime. doubt mrsa as a cause so will stop vanco and change meds to all po home ok with me later on as it appear qtf is pending. call lab ([phone]) to see if sputums sent he is not coughing, so you may have lots of trouble getting sputums. if none collected, he can wait at home for the test results.if any collected then if pos then start guideline recommmended TB rx (has changed in past month) if neg, then note the lack of cough and consider skipping the other specimens. Time Spent With Patient Time: Total time spent is greater than 50% in coordination of care (as documented) at patient's floor/unit and/or counseling patient:
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
--- NOTE | 2025-02-27 10:58 | PC.SS ---
SS follow up note; TB R/O. Patient will returb back home when medically cleared.
[2025-02-27 12:34] LABS: Cocci Serology, IgG Negative (Negative)
--- NOTE | 2025-02-27 13:22 | ESCONSULT_ITS ---
RE: JUAN LUIS STANTON : 2000 DATE OF CONSULTATION: 02/27/2025 REFERRING PHYSICIAN: Dr. Becerra. REASON FOR CONSULTATION: Cavitary lung disease. 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 He is here because he came for some sort of throat problem and got a chest x-ray done that showed cavitary lung disease. His record in the ED suggests he has lost some weight, but he actually denies that. He reports no cough currently and has been on azithromycin and Rocephin. I am going to switch him to oral. He had a low-grade temperature noted, but that is probably of limited significance. I called the health department and they have one test that remains pending. They will call with result Other sputums may have been collected. He does not have a cough. [place] fever testing remains pending. So, I am going to switch him to all oral regimen of fluconazole, azithromycin, and cefuroxime. He may be able to go home later today if all that is negative, but I do not think MRSA is a cause, he is not that sick. An MRSA pneumonia usually is life- threatening and the patient should be in ICU with advanced lung disease. He is not very ill- appearing. PHYSICAL EXAMINATION: General: Exam is grossly benign. He does not cough at all during the visit. He is not usually thin or emaciated. HEENT: Grossly benign. Heart: Grossly benign. Lungs: Grossly benign. Abdomen: Grossly benign. ASSESSMENT AND PLAN: I called the [facility] Lab at [phone] and the sputum afb is in process. If he iss able to produce sputum then please be sure that 3 are collected him, but if it is negative, then he can go home without the fluconazole. I will gladly see him again if his test is positive at a reference laboratory, i can see him if his cocci is pos at a reference lab. He may need further diagnostic testing if he is negative for both. 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 I will be glad to see him again if needed. He does not look very ill at the moment. DT: 11:06:35 TT: 11:33:00 Ref: [id number] - TID: [id number] [facility]
--- NOTE | 2025-02-27 15:41 | PC.SS ---
SS follow up note; AFB was positive, Dr. Mcallister contacted ID nurse, Diana and she informed Dr. Mcallister that she would contact the county, patient will not discharge until the count includes the [facility] clears him.
--- NOTE | 2025-02-27 17:29 | PC.IP ---
Late entry; Lab notified pt's AFB are positive. Stefano from Lab states all 3 are positive. PT information entered in [employer] and email sent to PHN with [facility].
--- NOTE | 2025-02-27 18:25 | PC.NURSE ---
Received a call from Isabelle GUADARRAMA from the [facility] asking initial questions regarding patient symptoms, contacts and living situation. She spoke with patient directly on the phone. She says another nurse will be calling Sunday to follow up.
[2025-02-27] MEDS: ISONIAZID 300 MG TABLET PO (18:27)
[2025-02-27] MEDS: PYRAZINAMIDE 500 MG TABLET PO (18:28)
[2025-02-27] MEDS: ETHAMBUTOL HCL 400 MG TABLET PO (18:28)
[2025-02-27] MEDS: rifAMPin 300 MG CAPSULE PO (20:54)
[2025-02-27] MEDS: cefuroxime axetiL 250 MG TABLET 500 MG PO (20:54)
[2025-02-28] VITALS (7 sets, daily range): BP systolic 96–116; BP diastolic 57–77; PULSE 72–93; RESP 16–97; TEMP 36.3–36.9; O2SAT 95–98; BMI 25.0
[2025-02-28] MEDS: PYRAZINAMIDE 500 MG TABLET PO ×4 (00:35→21:32)
[2025-02-28 06:22] LABS: Basophils # (Auto) 0.1 Thou/mm3 (0.0-0.2); Basophils % (Auto) 1 % (0-2.5); Eosinophils # (Auto) 0.5 Thou/mm3 (0.0-0.5); Eosinophils % (Auto) 3 % (0-10); Hematocrit 36.6 % (41.0-53.0); Hemoglobin 11.9 g/dL (13.5-16.0); Immature Granulocytes % (Auto) 1 % (0-0); Immature Granulocytes Auto 0.09 Thou/mm3 (0.00-0.00); Lymphocytes # (Auto) 2.5 Thou/mm3 (1.0-4.8); Lymphocytes % (Auto) 15 % (10-50); Mean Corpuscular HGB Conc 32.5 g/dl (31.0-37.0); Mean Corpuscular Hemoglobin 24.8 pg (25.0-35.0); Mean Corpuscular Volume 76 fL (80-100); Monocytes # (Auto) 2.2 Thou/mm3 (0.0-0.8); Monocytes % (Auto) 13 % (0-12); Neutrophils # (Auto) 10.9 Thou/mm3 (1.8-7.7); Neutrophils % (Auto) 67 % (37-80); Nucleated Red Blood Cell % 0 /100 WBC (0); Platelet Count 808 Thou/mm3 (140-440); RDW Standard Deviation 42.2 fL (35.1-43.9); Red Blood Count 4.79 Miln/mm3 (4.50-5.90); White Blood Count 16.3 Thou/mm3 (3.8-10.6)
[2025-02-28 06:50] LABS: Path Review Blood Smear Sent to Pathologist
--- NOTE | 2025-02-28 07:19 | ESPR_ITS ---
Subjective Subjective Interval history: health dept called me yest pm and indicated that afb's were pos as was the qtf. note that cocci neg. so pt likely has tb and not something else. will stop the other rx and let the primary team manage the afb situation please wait about 2 weeks to repeat the afb tests Exam Vital Signs Temp Pulse Resp BP Pulse Ox O2 Del Method 97.3 F 75 18 99/59 L 98 Room Air 02/28/25 04:00 02/28/25 04:45 02/28/25 04:45 02/28/25 04:00 02/28/25 04:00 02/28/25 04:00 Objective - Internal Medicine Labs 02/28/25 06:05 02/27/25 05:23 Labs: Laboratory Results - last 24 hr 02/25/25 02/28/25 16:54 06:05 WBC 16.3 H RBC 4.79 Hgb 11.9 L Hct 36.6 L MCV 76 L MCH 24.8 L MCHC 32.5 RDW Std Deviation 42.2 Plt Count 808 H D Neut % (Auto) 67 Lymph % (Auto) 15 [place] % (Auto) 13 H Eos % (Auto) 3 Baso % (Auto) 1 Neut # (Auto) 10.9 H Lymph # (Auto) 2.5 [place] # (Auto) 2.2 H Eos # (Auto) 0.5 Baso # (Auto) 0.1 Immature Gran # (Auto) 0.09 H Absolute Nucleated RBC 0.00 Immature Gran % 1 H Nucleated RBC % 0 Smear Path Review Sent to Pathologist Coccidioides IgG Ab Negative Assessment & Plan A&P Narrative cavitary lung disease on chest imaging limited pmh you have already started the tb w/u (see orders) if no sputum , then ok to get a qtf (pending) ok for tb rx per guidelines. call lab ([phone]) to verify sputum results he is not coughing, so you may have lots of trouble getting sputums. Time Spent With Patient Time: Total time spent is greater than 50% in coordination of care (as documented) at patient's floor/unit and/or counseling patient:
[2025-02-28 07:25] LABS: Alanine Aminotransferase 20 U/L (10-49); Albumin, Serum 4.1 gm/dL (3.5-5.0); Albumin/Globulin Ratio 1.1 (1.2-2.2); Alkaline Phosphatase 73 U/L (46-116); Anion Gap 8 (7-16); Aspartate Amino Transferase 21 U/L (0-34); BUN/Creatinine Ratio 13 Ratio (12-20); Bilirubin,Total 0.9 mg/dL (0.3-1.2); Blood Urea Nitrogen 12 mg/dL (9-23); Calcium 9.1 mg/dL (8.3-10.6); Calcium (Corrected) 9.1 mg/dL (8.5-10.1); Carbon Dioxide 27.9 mMol/L (20.0-31.0); Chloride 101 mMol/L (98-107); Creatinine (Component) 0.9 mg/dL (0.6-1.3); Estimated Creatinine Clearance 117.3 mL/min (>60); Globulin 3.8 gm/dL (2.3-3.5); Glucose 90 mg/dL (74-106); Magnesium 1.9 mg/dL (1.6-2.6); Osmolality,Calculated 273 (275-295); Potassium 4.5 mMol/L (3.4-5.1); Sodium 137 mMol/L (136-145); Total Protein 7.9 gm/dL (5.7-8.2); eGFR > 60 See Note
[2025-02-28] MEDS: ENOXAPARIN SOD INJ 40 MG/0.4 ML SYRINGE SC (08:50)
[2025-02-28] MEDS: rifAMPin 300 MG CAPSULE PO ×2 (08:51→20:38)
[2025-02-28] MEDS: ETHAMBUTOL HCL 400 MG TABLET PO (08:51)
[2025-02-28] MEDS: ISONIAZID 300 MG TABLET PO (08:51)
--- NOTE | 2025-02-28 09:19 | PD.RESPRO ---
Documentation for date of: 02/28/25 Subjective Subjective Interval history: Patient was seen and examined at bedside this morning. No acute overnight events. Patient's blood cultures have been negative in the past 48 hours. Patient sputum culture did come back negative and only showed mixed oral ashley. Patient's WBC that slightly trended up to 16.3 from 13.3 yesterday. Still pending autoimmune workup. Patient's AFBs were positive as well as QuantiFERON. Patient has no other complaints at this time. Exam Vital Signs Temp Pulse Resp BP Pulse Ox O2 Del Method 98.4 F 89 18 96/63 97 Room Air 02/28/25 08:00 02/28/25 08:00 02/28/25 08:00 02/28/25 08:00 02/28/25 08:00 02/28/25 08:00 Narrative Exam General: A/O x3, no acute distress, well-nourished, well-developed Eyes: PERRL, EOMI. Anicteric, vision grossly intact. Ears: No ear pain, no ear discharge, Hearing grossly intact. Nose: No nasal discharge. Mouth/Throat: Moist mucous membranes, no redness, no lesions. Neck: Neck supple, non-tender, no cervical lymphadenopathy. Lungs: Clear АНДРЕЙ to auscultation and percussion, No accessory muscle use. Cardio: Normal S1/S2, regular rhythm, tachycardic, no murmurs, no JVD Abdomen: Soft, non-tender, no palpable masses, peristalsis present, no guarding or rebound. Extremities: Symmetrical, no significant deformities, no peripheral edema , non-tender, peripheral pulses presents. Skin: No rashes, no lesions, warm to touch. Neuro: No focal neurological deficits. motor and sensory intact Psych: Cooperative, appropriate mood and effect. Objective Labs 02/28/25 06:05 02/28/25 06:05 Labs: Laboratory Results - last 24 hr 02/25/25 02/28/25 16:54 06:05 WBC 16.3 H RBC 4.79 Hgb 11.9 L Hct 36.6 L MCV 76 L MCH 24.8 L MCHC 32.5 RDW Std Deviation 42.2 Plt Count 808 H D Neut % (Auto) 67 Lymph % (Auto) 15 [place] % (Auto) 13 H Eos % (Auto) 3 Baso % (Auto) 1 Neut # (Auto) 10.9 H Lymph # (Auto) 2.5 [place] # (Auto) 2.2 H Eos # (Auto) 0.5 Baso # (Auto) 0.1 Immature Gran # (Auto) 0.09 H Absolute Nucleated RBC 0.00 Immature Gran % 1 H Nucleated RBC % 0 Smear Path Review Sent to Pathologist Sodium 137 Potassium 4.5 D Chloride 101 Carbon Dioxide 27.9 Anion Gap 8 BUN 12 Creatinine 0.9 Estim Creat Clear Calc 117.3 eGFR > 60 BUN/Creatinine Ratio 13 Glucose 90 Calculated Osmolality 273 L Calcium 9.1 Corrected Calcium 9.1 Magnesium 1.9 Total Bilirubin 0.9 D AST 21 ALT 20 Alkaline Phosphatase 73 Total Protein 7.9 Albumin 4.1 Globulin 3.8 H Albumin/Globulin Ratio 1.1 L Coccidioides IgG Ab Negative Quality Measures Quality Measures none Assessment & Plan Assessment Current Active Medications: Generic Name Dose Route Start Last Admin Trade Name Freq PRN Reason Stop Dose Admin Acetaminophen 650 mg 02/25/25 18:32 02/25/25 18:57 Acetaminophen 325 Mg Tablet PO 03/27/25 18:31 650 mg Q6H PRN Administration pain 1-3 and Fever >100.4 Hydrocodone Bitart/Acetaminophen 1 tab 02/25/25 18:32 Hydrocodone/Apap 5/325 Tablet PO 03/02/25 18:31 Q4HR PRN PAIN SCALE 4-6 (Moderate Enoxaparin Sodium 40 mg 02/26/25 09:00 02/28/25 08:50 Enoxaparin Sod Inj 40 Mg/0.4 Ml Syringe SC 03/12/25 08:59 40 mg QDAY YUMIKO Administration Ethambutol HCl 400 mg 02/27/25 15:45 02/28/25 08:51 Ethambutol Hcl 400 Mg Tablet PO 03/29/25 15:44 400 mg QDAY YUMIKO Administration Isoniazid 300 mg 02/27/25 15:30 02/28/25 08:51 Isoniazid 300 Mg Tablet PO 03/29/25 15:29 300 mg QDAY YUMIKO Administration Ondansetron HCl 4 mg 02/25/25 18:32 Ondansetron Inj 2 Mg/Ml Inj 2 Ml IV 03/27/25 18:31 Q6H PRN NAUSEA OR VOMITING Protocol Pyrazinamide 500 mg 02/27/25 15:45 02/28/25 06:43 Pyrazinamide 500 Mg Tablet PO 03/29/25 15:44 500 mg TID YUMIKO Administration Rifampin 300 mg 02/27/25 21:00 02/28/25 08:51 Rifampin 300 Mg Capsule PO 03/29/25 20:59 300 mg BID YUMIKO Administration Plan 24-year-old male with no relevant past medical history was admitted to the hospital 02/25/2025 for TB rule out in the setting of cavitary lesions on imaging. #Bilateral cavitary lesions #Shortness of breath #Cough #Sore throat #Leukocytosis #TB rule out Patient came in with complaints of some shortness of breath along with cough and sore throat for the past 5 months. Patient denied any night sweats or hemoptysis. Patient's chest CT that showed severe cavitary disease in both lungs and chest x-ray also showed cavitary lesions in both lungs. Patient states that he has not had any sick contacts. Patient does not recall having any prior pulmonary issues in the past when he was a child. Patient's WBCs were 18.2 initially, uptrending today with no fevers Cocci negative Discussed with pulmonology given cavitary lesions and stated could be Cocci and to repeat Cocci on Sunday if it was negative and to covert for MRSA PNA and get autoimmune workup as well as echo for endocarditis. Blood culture negative in 48 hrs and sputum mixed oral ashley AFB's positive / and quantiferon as well. Discontinued azithromycin and Rocephin (02/25/2025?02/27/2025), Vancomycin (02/26/2025-02/27/2025) and Fluconazole (02/26/2025-03/01/2025) Plan: RIPE started (02/27/2025-) Isolation and airborne precautions ID consulted, appreciate recommendations #Thrombocytosis Patient's platelets were 828 initially and 808 today Most likely hemoconcentration as patient did appear to be a little bit dehydrated. Plan: Will continue to monitor Disposition: Pending Health department. TB positive Diet: regular GI prophylaxis: not indicated DVT prophylaxis: lovenox Code:Full code Case disclosed with Attending Dr. Hernan Gomez PGY1 Disclaimer: Even though this this note was dictated by speech recognition and even though it was carefully revised there may still be minor errors in wood type finisher due to voice recognition software. Attending Provider Attestation/Addendum reviewed labs, imaging, EKG, home medications and prior available records. Face to face evaluation was performed by me. I have personally examined the patient and discussed assessment and plan with the IM team. I reviewed the resident note and agree with the plan with exceptions as below. Possible sepsis secondary to pneumonia Cavitary lesion of lung Leukocytosis Thrombocythemia active tuberculosis Heart rate improved with IV fluids HIV is negative Patient's chest CT that showed severe cavitary disease in both lungs Ordered cocci IgM: Negative Ordered AFB x 3 and QuantiFERON: AFB samples are positive for TB. Started RIPE treatment. Discussed with social work specialist to report to the [facility]. Continue isolation We will need to repeat AFB samples in 2 weeks. Will follow-up with the [facility] whether the patient needs to stay in house for the repeat Discontinued IV vancomycin and fluconazole per ID recommendations ID is following Monitor CBC: WBC is downtrending
[2025-03-01] VITALS: BP 110/79; PULSE 77; RESP 16; TEMP 36.8; O2SAT 99
[2025-03-01 04:00] VITALS: BP 106/69; PULSE 98; RESP 17; TEMP 36.2; O2SAT 98
[2025-03-01] MEDS: PYRAZINAMIDE 500 MG TABLET PO ×3 (05:24→21:08)
[2025-03-01 06:02] LABS: Basophils # (Auto) 0.1 Thou/mm3 (0.0-0.2); Basophils % (Auto) 1 % (0-2.5); Eosinophils # (Auto) 0.7 Thou/mm3 (0.0-0.5); Eosinophils % (Auto) 4 % (0-10); Hemoglobin 11.8 g/dL (13.5-16.0); Immature Granulocytes % (Auto) 1 % (0-0); Immature Granulocytes Auto 0.09 Thou/mm3 (0.00-0.00); Lymphocytes # (Auto) 2.3 Thou/mm3 (1.0-4.8); Lymphocytes % (Auto) 14 % (10-50); Mean Corpuscular HGB Conc 31.9 g/dl (31.0-37.0); Mean Corpuscular Hemoglobin 24.4 pg (25.0-35.0); Mean Corpuscular Volume 77 fL (80-100); Monocytes # (Auto) 1.7 Thou/mm3 (0.0-0.8); Monocytes % (Auto) 11 % (0-12); Neutrophils # (Auto) 11.2 Thou/mm3 (1.8-7.7); Neutrophils % (Auto) 69 % (37-80); Nucleated Red Blood Cell % 0 /100 WBC (0); Platelet Count 737 Thou/mm3 (140-440); RDW Standard Deviation 41.6 fL (35.1-43.9); Red Blood Count 4.83 Miln/mm3 (4.50-5.90); White Blood Count 16.2 Thou/mm3 (3.8-10.6)
[2025-03-01 06:26] LABS: Alanine Aminotransferase 17 U/L (10-49); Albumin, Serum 4.1 gm/dL (3.5-5.0); Albumin/Globulin Ratio 1.1 (1.2-2.2); Alkaline Phosphatase 78 U/L (46-116); Anion Gap 10 (7-16); Aspartate Amino Transferase 18 U/L (0-34); BUN/Creatinine Ratio 14 Ratio (12-20); Blood Urea Nitrogen 13 mg/dL (9-23); Carbon Dioxide 26.8 mMol/L (20.0-31.0); Chloride 99 mMol/L (98-107); Creatinine (Component) 0.9 mg/dL (0.6-1.3); Estimated Creatinine Clearance 113.2 mL/min (>60); Globulin 3.8 gm/dL (2.3-3.5); Glucose 96 mg/dL (74-106); Osmolality,Calculated 272 (275-295); Potassium 4.2 mMol/L (3.4-5.1); Sodium 136 mMol/L (136-145); Total Protein 7.9 gm/dL (5.7-8.2); eGFR > 60 See Note
[2025-03-01 06:58] VITALS: PULSE 78; RESP 18; RESP 97
--- NOTE | 2025-03-01 07:41 | ESPR_ITS ---
Documentation for date of: 03/01/25 Subjective Subjective Interval history: Patient was seen and examined at bedside this morning. No acute overnight events. Patient's WBC downtrending from yesterday. No spikes in fevers. Patient has no new complaints. Still pending health department for further disposition. Stated he was contacted by an oficial yesterday and that they would be in tomorrow to see him. Exam Vital Signs Temp Pulse Resp BP Pulse Ox O2 Del Method 97.1 F 78 18 106/69 98 Room Air 03/01/25 04:00 03/01/25 06:58 03/01/25 06:58 03/01/25 04:00 03/01/25 04:00 03/01/25 04:00 Narrative Exam General: A/O x3, no acute distress, well-nourished, well-developed Eyes: PERRL, EOMI. Anicteric, vision grossly intact. Ears: No ear pain, no ear discharge, Hearing grossly intact. Nose: No nasal discharge. Mouth/Throat: Moist mucous membranes, no redness, no lesions. Neck: Neck supple, non-tender, no cervical lymphadenopathy. Lungs: Clear АНДРЕЙ to auscultation and percussion, No accessory muscle use. Cardio: Normal S1/S2, regular rhythm, tachycardic, no murmurs, no JVD Abdomen: Soft, non-tender, no palpable masses, peristalsis present, no guarding or rebound. Extremities: Symmetrical, no significant deformities, no peripheral edema , non-tender, peripheral pulses presents. Skin: No rashes, no lesions, warm to touch. Neuro: No focal neurological deficits. motor and sensory intact Psych: Cooperative, appropriate mood and effect. Objective Labs 03/01/25 05:35 03/01/25 05:35 Labs: Laboratory Results - last 24 hr 03/01/25 05:35 WBC 16.2 H RBC 4.83 Hgb 11.8 L Hct 37.0 L MCV 77 L MCH 24.4 L MCHC 31.9 RDW Std Deviation 41.6 Plt Count 737 H D Neut % (Auto) 69 Lymph % (Auto) 14 [place] % (Auto) 11 Eos % (Auto) 4 Baso % (Auto) 1 Neut # (Auto) 11.2 H Lymph # (Auto) 2.3 [place] # (Auto) 1.7 H Eos # (Auto) 0.7 H Baso # (Auto) 0.1 Immature Gran # (Auto) 0.09 H Absolute Nucleated RBC 0.00 Immature Gran % 1 H Nucleated RBC % 0 Sodium 136 Potassium 4.2 Chloride 99 Carbon Dioxide 26.8 Anion Gap 10 BUN 13 Creatinine 0.9 Estim Creat Clear Calc 113.2 eGFR > 60 BUN/Creatinine Ratio 14 Glucose 96 Calculated Osmolality 272 L Calcium 9.0 Corrected Calcium 9.0 Total Bilirubin 1.0 AST 18 ALT 17 Alkaline Phosphatase 78 Total Protein 7.9 Albumin 4.1 Globulin 3.8 H Albumin/Globulin Ratio 1.1 L Quality Measures Quality Measures none Assessment & Plan Assessment Current Active Medications: Generic Name Dose Route Start Last Admin Trade Name Freq PRN Reason Stop Dose Admin Acetaminophen 650 mg 02/25/25 18:32 02/25/25 18:57 Acetaminophen 325 Mg Tablet PO 03/27/25 18:31 650 mg Q6H PRN Administration pain 1-3 and Fever >100.4 Hydrocodone Bitart/Acetaminophen 1 tab 02/25/25 18:32 Hydrocodone/Apap 5/325 Tablet PO 03/02/25 18:31 Q4HR PRN PAIN SCALE 4-6 (Moderate Enoxaparin Sodium 40 mg 02/26/25 09:00 02/28/25 08:50 Enoxaparin Sod Inj 40 Mg/0.4 Ml Syringe SC 03/12/25 08:59 40 mg QDAY YUMIKO Administration Ethambutol HCl 400 mg 02/27/25 15:45 02/28/25 08:51 Ethambutol Hcl 400 Mg Tablet PO 03/29/25 15:44 400 mg QDAY YUMIKO Administration Isoniazid 300 mg 02/27/25 15:30 02/28/25 08:51 Isoniazid 300 Mg Tablet PO 03/29/25 15:29 300 mg QDAY YUMIKO Administration Ondansetron HCl 4 mg 02/25/25 18:32 Ondansetron Inj 2 Mg/Ml Inj 2 Ml IV 03/27/25 18:31 Q6H PRN NAUSEA OR VOMITING Protocol Pyrazinamide 500 mg 02/27/25 15:45 03/01/25 05:24 Pyrazinamide 500 Mg Tablet PO 03/29/25 15:44 500 mg TID YUMIKO Administration Rifampin 300 mg 02/27/25 21:00 02/28/25 20:38 Rifampin 300 Mg Capsule PO 03/29/25 20:59 300 mg BID YUMIKO Administration Plan 24-year-old male with no relevant past medical history was admitted to the hospital 02/25/2025 for TB rule out in the setting of cavitary lesions on imaging. #Tuberculosis #Bilateral cavitary lesions #Shortness of breath #Cough #Sore throat #Leukocytosis Patient came in with complaints of some shortness of breath along with cough and sore throat for the past 5 months. Patient denied any night sweats or hemoptysis. Patient's chest CT that showed severe cavitary disease in both lungs and chest x-ray also showed cavitary lesions in both lungs. Patient states that he has not had any sick contacts. Patient does not recall having any prior pulmonary issues in the past when he was a child. Patient's WBCs were 18.2 initially, downtrending today with no fevers Cocci negative Discussed with pulmonology given cavitary lesions and stated could be Cocci and to repeat Cocci on Sunday if it was negative and to covert for MRSA PNA and get autoimmune workup as well as echo for endocarditis. Blood culture negative in 48 hrs and sputum mixed oral ashley AFB's positive 12/15 and quantiferon as well. Discontinued azithromycin and Rocephin (02/25/2025?02/27/2025), Vancomycin (02/26/2025-02/27/2025) and Fluconazole (02/26/2025-03/01/2025) Plan: RIPE (02/27/2025-) Isolation and airborne precautions ID consulted, appreciate recommendations #Thrombocytosis Patient's platelets were 828 initially and 737 today Most likely hemoconcentration as patient did appear to be a little bit dehydrated. Plan: Will continue to monitor Disposition: Pending Health department. TB positive Diet: regular GI prophylaxis: not indicated DVT prophylaxis: lovenox Code:Full code Case disclosed with Attending Dr. Hernan Goemz PGY1 Disclaimer: Even though this this note was dictated by speech recognition and even though it was carefully revised there may still be minor errors in electrical appliance repairer due to voice recognition software. Attending Provider Attestation/Addendum I reviewed labs, imaging, EKG, home medications and prior available records. Face to face evaluation was performed by me. I have personally examined the patient and discussed assessment and plan with the IM team. I reviewed the resident note and agree with the plan with exceptions as below. Possible sepsis secondary to pneumonia Cavitary lesion of lung Leukocytosis Thrombocythemia active tuberculosis Patient's chest CT that showed severe cavitary disease in both lungs Ordered cocci IgM: Negative Ordered AFB x 3 and QuantiFERON: AFB samples are positive for TB. Started RIPE treatment. Discussed with manager social media to report to the [facility]. Continue isolation We will need to repeat AFB samples in 2 weeks. Will follow-up with the [facility] whether the patient needs to stay in house for the repeat Discontinued IV vancomycin and fluconazole per ID recommendations ID is following Monitor CBC: WBC is downtrending
[2025-03-01 07:44] VITALS: BP 106/55; PULSE 90; RESP 18; TEMP 36.1; O2SAT 96
[2025-03-01] MEDS: ENOXAPARIN SOD INJ 40 MG/0.4 ML SYRINGE SC (07:55)
[2025-03-01] MEDS: ETHAMBUTOL HCL 400 MG TABLET PO (07:57)
[2025-03-01] MEDS: ISONIAZID 300 MG TABLET PO (08:02)
[2025-03-01] MEDS: rifAMPin 300 MG CAPSULE PO ×2 (08:03→21:08)
--- NOTE | 2025-03-01 16:42 | PC.NURSE ---
[facility] [id number].
[2025-03-01 20:00] VITALS: BP 110/77; PULSE 79; RESP 18; TEMP 36.2; O2SAT 96
[2025-03-02] VITALS: BP 113/59; PULSE 105; RESP 16; TEMP 36.1; O2SAT 95
[2025-03-02 04:00] VITALS: BP 97/61; PULSE 90; RESP 20; TEMP 35.9; O2SAT 97
[2025-03-02] MEDS: PYRAZINAMIDE 500 MG TABLET PO ×3 (05:45→21:34)
[2025-03-02 05:51] LABS: Basophils # (Auto) 0.1 Thou/mm3 (0.0-0.2); Basophils % (Auto) 1 % (0-2.5); Eosinophils # (Auto) 0.8 Thou/mm3 (0.0-0.5); Eosinophils % (Auto) 5 % (0-10); Hematocrit 37.5 % (41.0-53.0); Immature Granulocytes % (Auto) 1 % (0-0); Immature Granulocytes Auto 0.08 Thou/mm3 (0.00-0.00); Lymphocytes % (Auto) 19 % (10-50); Mean Corpuscular Hemoglobin 24.6 pg (25.0-35.0); Mean Corpuscular Volume 77 fL (80-100); Monocytes # (Auto) 1.8 Thou/mm3 (0.0-0.8); Monocytes % (Auto) 12 % (0-12); Neutrophils # (Auto) 9.6 Thou/mm3 (1.8-7.7); Neutrophils % (Auto) 63 % (37-80); Nucleated Red Blood Cell % 0 /100 WBC (0); Platelet Count 767 Thou/mm3 (140-440); RDW Standard Deviation 41.1 fL (35.1-43.9); Red Blood Count 4.88 Miln/mm3 (4.50-5.90); White Blood Count 15.3 Thou/mm3 (3.8-10.6)
[2025-03-02 06:14] LABS: Alanine Aminotransferase 17 U/L (10-49); Albumin, Serum 4.2 gm/dL (3.5-5.0); Albumin/Globulin Ratio 1.1 (1.2-2.2); Alkaline Phosphatase 82 U/L (46-116); Anion Gap 11 (7-16); Aspartate Amino Transferase 19 U/L (0-34); BUN/Creatinine Ratio 20 Ratio (12-20); Bilirubin,Total 0.7 mg/dL (0.3-1.2); Blood Urea Nitrogen 16 mg/dL (9-23); Calcium 9.1 mg/dL (8.3-10.6); Calcium (Corrected) 9.1 mg/dL (8.5-10.1); Carbon Dioxide 25.1 mMol/L (20.0-31.0); Chloride 100 mMol/L (98-107); Creatinine (Component) 0.8 mg/dL (0.6-1.3); Estimated Creatinine Clearance 127.4 mL/min (>60); Globulin 3.9 gm/dL (2.3-3.5); Glucose 93 mg/dL (74-106); Osmolality,Calculated 273 (275-295); Potassium 4.1 mMol/L (3.4-5.1); Sodium 136 mMol/L (136-145); Total Protein 8.1 gm/dL (5.7-8.2); eGFR > 60 See Note
[2025-03-02 08:00] VITALS: BP 105/72; PULSE 91; RESP 17; TEMP 36.2; O2SAT 97
--- NOTE | 2025-03-02 08:48 | PD.IDPROG ---
Subjective Subjective Interval history: ws called sunday that qtf and afb's pos, so maintain isolation and wait 2 weeks to repeat the afb. if cocci pos too ok to add flucon and check lft's 2x/wk otherwise ok to to cbc, cmp weekly on current rx Exam Vital Signs Temp Pulse Resp BP Pulse Ox O2 Del Method 97.2 F 91 17 105/72 97 Room Air 03/02/25 08:00 03/02/25 08:00 03/02/25 08:00 03/02/25 08:00 03/02/25 08:00 03/02/25 08:00 Narrative Exam follow health dept recs on rx. looks ok as before. is somewhat surprised to learn that he has tb. 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, so not too many contacts to follow up on Objective - Internal Medicine Labs 03/02/25 04:48 03/02/25 04:48 Labs: Laboratory Results - last 24 hr 02/25/25 02/26/25 02/26/25 19:55 04:10 14:22 WBC RBC Hgb Hct MCV MCH MCHC RDW Std Deviation Plt Count Neut % (Auto) Lymph % (Auto) [place] % (Auto) Eos % (Auto) Baso % (Auto) Neut # (Auto) Lymph # (Auto) [place] # (Auto) Eos # (Auto) Baso # (Auto) Immature Gran # (Auto) Absolute Nucleated RBC Immature Gran % Nucleated RBC % Sodium Potassium Chloride Carbon Dioxide Anion Gap BUN Creatinine Estim Creat Clear Calc eGFR BUN/Creatinine Ratio Glucose Calculated Osmolality Calcium Corrected Calcium Total Bilirubin AST ALT Alkaline Phosphatase Total Protein Albumin Globulin Albumin/Globulin Ratio Mycobacterial Culture See Jun Rpt See Jun Rpt See Jun Rpt 03/02/25 04:48 WBC 15.3 H RBC 4.88 Hgb 12.0 L Hct 37.5 L MCV 77 L MCH 24.6 L MCHC 32.0 RDW Std Deviation 41.1 Plt Count 767 H D Neut % (Auto) 63 Lymph % (Auto) 19 [place] % (Auto) 12 Eos % (Auto) 5 Baso % (Auto) 1 Neut # (Auto) 9.6 H Lymph # (Auto) 3.0 [place] # (Auto) 1.8 H Eos # (Auto) 0.8 H Baso # (Auto) 0.1 Immature Gran # (Auto) 0.08 H Absolute Nucleated RBC 0.00 Immature Gran % 1 H Nucleated RBC % 0 Sodium 136 Potassium 4.1 Chloride 100 Carbon Dioxide 25.1 Anion Gap 11 BUN 16 Creatinine 0.8 Estim Creat Clear Calc 127.4 eGFR > 60 BUN/Creatinine Ratio 20 Glucose 93 Calculated Osmolality 273 L Calcium 9.1 Corrected Calcium 9.1 Total Bilirubin 0.7 AST 19 ALT 17 Alkaline Phosphatase 82 Total Protein 8.1 Albumin 4.2 Globulin 3.9 H Albumin/Globulin Ratio 1.1 L Mycobacterial Culture Assessment & Plan A&P Narrative cavitary lung disease on chest imaging. qtf and afb's pos by phone from health dept on sunday. with pos mtb naat noted. limited pmh he is not coughing, so you may have lots of trouble getting sputums. testing of contacts is at the discretion of health dept. try to wait about 2 weeks to repeat the sputums as it usually takes that long, if no coughing, even with induction, document that and let health dept decide on isolation Time Spent With Patient Time: Total time spent is greater than 50% in coordination of care (as documented) at patient's floor/unit and/or counseling patient:
[2025-03-02] MEDS: rifAMPin 300 MG CAPSULE PO ×2 (09:06→21:34)
[2025-03-02] MEDS: PYRIDOXINE 50 MG TABLET PO (09:06)
[2025-03-02] MEDS: ISONIAZID 300 MG TABLET PO (09:06)
[2025-03-02] MEDS: ETHAMBUTOL HCL 400 MG TABLET PO (09:06)
[2025-03-02] MEDS: ENOXAPARIN SOD INJ 40 MG/0.4 ML SYRINGE SC (09:06)
--- NOTE | 2025-03-02 10:06 | PD.RESPRO ---
Documentation for date of: 03/02/25 Subjective Subjective Interval history: Patient was seen and examined at bedside this morning. No acute overnight events. Patient's blood cultures have been negative as well as patient's sputum cultures. WBC continues to downtrend he has not had any spikes in fevers. We are still pending telehealth department to evaluate patient. Patient is getting irritated as he thinks that he can go home at this time, but it was explained to him that because of his tuberculosis it is now a matter of health department given that TB is a public health threat. No other complaints at this time, we will do blood work every 48 hrs. Exam Vital Signs Temp Pulse Resp BP Pulse Ox O2 Del Method 97.2 F 91 17 105/72 97 Room Air 03/02/25 08:00 03/02/25 08:00 03/02/25 08:00 03/02/25 08:00 03/02/25 08:00 03/02/25 08:00 Narrative Exam General: A/O x3, no acute distress, well-nourished, well-developed Eyes: PERRL, EOMI. Anicteric, vision grossly intact. Ears: No ear pain, no ear discharge, Hearing grossly intact. Nose: No nasal discharge. Mouth/Throat: Moist mucous membranes, no redness, no lesions. Neck: Neck supple, non-tender, no cervical lymphadenopathy. Lungs: Clear АНДРЕЙ to auscultation and percussion, No accessory muscle use. Cardio: Normal S1/S2, regular rhythm, tachycardic, no murmurs, no JVD Abdomen: Soft, non-tender, no palpable masses, peristalsis present, no guarding or rebound. Extremities: Symmetrical, no significant deformities, no peripheral edema , non-tender, peripheral pulses presents. Skin: No rashes, no lesions, warm to touch. Neuro: No focal neurological deficits. motor and sensory intact Psych: Cooperative, appropriate mood and effect. Objective Labs 03/02/25 04:48 03/02/25 04:48 Labs: Laboratory Results - last 24 hr 02/25/25 02/26/25 02/26/25 19:55 04:10 14:22 WBC RBC Hgb Hct MCV MCH MCHC RDW Std Deviation Plt Count Neut % (Auto) Lymph % (Auto) [place] % (Auto) Eos % (Auto) Baso % (Auto) Neut # (Auto) Lymph # (Auto) [place] # (Auto) Eos # (Auto) Baso # (Auto) Immature Gran # (Auto) Absolute Nucleated RBC Immature Gran % Nucleated RBC % Sodium Potassium Chloride Carbon Dioxide Anion Gap BUN Creatinine Estim Creat Clear Calc eGFR BUN/Creatinine Ratio Glucose Calculated Osmolality Calcium Corrected Calcium Total Bilirubin AST ALT Alkaline Phosphatase Total Protein Albumin Globulin Albumin/Globulin Ratio Mycobacterial Culture See Jun Rpt See Jun Rpt See Jun Rpt 03/02/25 04:48 WBC 15.3 H RBC 4.88 Hgb 12.0 L Hct 37.5 L MCV 77 L MCH 24.6 L MCHC 32.0 RDW Std Deviation 41.1 Plt Count 767 H D Neut % (Auto) 63 Lymph % (Auto) 19 [place] % (Auto) 12 Eos % (Auto) 5 Baso % (Auto) 1 Neut # (Auto) 9.6 H Lymph # (Auto) 3.0 [place] # (Auto) 1.8 H Eos # (Auto) 0.8 H Baso # (Auto) 0.1 Immature Gran # (Auto) 0.08 H Absolute Nucleated RBC 0.00 Immature Gran % 1 H Nucleated RBC % 0 Sodium 136 Potassium 4.1 Chloride 100 Carbon Dioxide 25.1 Anion Gap 11 BUN 16 Creatinine 0.8 Estim Creat Clear Calc 127.4 eGFR > 60 BUN/Creatinine Ratio 20 Glucose 93 Calculated Osmolality 273 L Calcium 9.1 Corrected Calcium 9.1 Total Bilirubin 0.7 AST 19 ALT 17 Alkaline Phosphatase 82 Total Protein 8.1 Albumin 4.2 Globulin 3.9 H Albumin/Globulin Ratio 1.1 L Mycobacterial Culture Quality Measures Quality Measures none Assessment & Plan Assessment Current Active Medications: Generic Name Dose Route Start Last Admin Trade Name Freq PRN Reason Stop Dose Admin Acetaminophen 650 mg 02/25/25 18:32 02/25/25 18:57 Acetaminophen 325 Mg Tablet PO 03/27/25 18:31 650 mg Q6H PRN Administration pain 1-3 and Fever >100.4 Hydrocodone Bitart/Acetaminophen 1 tab 02/25/25 18:32 Hydrocodone/Apap 5/325 Tablet PO 03/02/25 18:31 Q4HR PRN PAIN SCALE 4-6 (Moderate Enoxaparin Sodium 40 mg 02/26/25 09:00 03/02/25 09:06 Enoxaparin Sod Inj 40 Mg/0.4 Ml Syringe SC 03/12/25 08:59 40 mg QDAY YUMIKO Administration Ethambutol HCl 400 mg 02/27/25 15:45 03/02/25 09:06 Ethambutol Hcl 400 Mg Tablet PO 03/29/25 15:44 400 mg QDAY YUMIKO Administration Isoniazid 300 mg 02/27/25 15:30 03/02/25 09:06 Isoniazid 300 Mg Tablet PO 03/29/25 15:29 300 mg QDAY YUMIKO Administration Ondansetron HCl 4 mg 02/25/25 18:32 Ondansetron Inj 2 Mg/Ml Inj 2 Ml IV 03/27/25 18:31 Q6H PRN NAUSEA OR VOMITING Protocol Pyrazinamide 500 mg 02/27/25 15:45 03/02/25 05:45 Pyrazinamide 500 Mg Tablet PO 03/29/25 15:44 500 mg TID YUMIKO Administration Pyridoxine HCl 50 mg 03/02/25 09:00 03/02/25 09:06 Pyridoxine 50 Mg Tablet PO 03/02/26 12:00 50 mg QDAY YUMIKO Administration Rifampin 300 mg 02/27/25 21:00 03/02/25 09:06 Rifampin 300 Mg Capsule PO 03/29/25 20:59 300 mg BID YUMIKO Administration Plan 24-year-old male with no relevant past medical history was admitted to the hospital 02/25/2025 for TB rule out in the setting of cavitary lesions on imaging. #Tuberculosis #Bilateral cavitary lesions #Shortness of breath #Cough #Sore throat #Leukocytosis Patient came in with complaints of some shortness of breath along with cough and sore throat for the past 5 months. Patient denied any night sweats or hemoptysis. Patient's chest CT that showed severe cavitary disease in both lungs and chest x-ray also showed cavitary lesions in both lungs. Patient states that he has not had any sick contacts. Patient does not recall having any prior pulmonary issues in the past when he was a child. Patient's WBCs were 18.2 initially, downtrending today with no fevers Cocci negative Discussed with pulmonology given cavitary lesions and stated could be Cocci and to repeat Cocci on Sunday if it was negative and to covert for MRSA PNA and get autoimmune workup as well as echo for endocarditis. Blood culture negative in 48 hrs and sputum mixed oral ashley AFB's positive 3/3 and quantiferon as well. Discontinued azithromycin and Rocephin (02/25/2025?02/27/2025), Vancomycin (02/26/2025-02/27/2025) and Fluconazole (02/26/2025-03/01/2025) Plan: RIPE (02/27/2025-) Isolation and airborne precautions ID consulted, appreciate recommendations #Thrombocytosis Patient's platelets were 828 initially and 767 today Most likely hemoconcentration as patient did appear to be a little bit dehydrated. Plan: Will continue to monitor Disposition: Pending Health department. TB positive Diet: regular GI prophylaxis: not indicated DVT prophylaxis: lovenox Code:Full code Case disclosed with Attending Dr. Hernan Gomez PGY1 Disclaimer: Even though this this note was dictated by speech recognition and even though it was carefully revised there may still be minor errors in import customs clearing agent due to voice recognition software. Attending Provider Attestation/Addendum I reviewed labs, imaging, EKG, home medications and prior available records. Face to face evaluation was performed by me. I have personally examined the patient and discussed assessment and plan with the IM team. I reviewed the resident note and agree with the plan with exceptions as below. Possible sepsis secondary to pneumonia Cavitary lesion of lung Leukocytosis Thrombocythemia active tuberculosis Patient's chest CT that showed severe cavitary disease in both lungs Ordered cocci IgM: Negative Ordered AFB x 3 and QuantiFERON: AFB samples are positive for TB. Started RIPE treatment. Discussed with social media designer to report to the [facility]. Continue isolation We will need to repeat AFB samples in 2 weeks. Discussed with social media designer: Will need to stay for at least 1 week of treatment as inpatient. A loan representative from the [facility] will come and evaluate the patient today Sunday Discontinued IV vancomycin and fluconazole per ID recommendations ID is following Monitor CBC: WBC is downtrending
--- NOTE | 2025-03-02 14:56 | PC.IP ---
Infection Prevention responded to patient's room to give further education regarding TB, TB isolation and prevention of spread of infection to others. Pt was made aware [facility] RN should be coming to speak to him today. TC RN will provide more information regarding length of stay in hospital and discharge information. Asked Pt if he has any questions, he denied.
--- NOTE | 2025-03-02 15:31 | PC.SS ---
SS follow up note; TB positive, pending Health Care department clearance, will need to get treated during the stay, Possible discharge home within 7 days.
[2025-03-02 16:00] VITALS: BP 110/64; PULSE 89; RESP 17; TEMP 36.2; O2SAT 96
[2025-03-02 19:49] LABS: (1-3)-B-D-glucan* <31 pg/mL
[2025-03-02 20:00] VITALS: BP 118/77; PULSE 112; RESP 18; TEMP 36.5; O2SAT 92
[2025-03-03] VITALS: BP 108/69; PULSE 107; RESP 18; TEMP 36.6; O2SAT 95
[2025-03-03 04:00] VITALS: BP 96/66; PULSE 82; RESP 18; TEMP 36.2; O2SAT 95
[2025-03-03] MEDS: PYRAZINAMIDE 500 MG TABLET PO ×3 (06:04→21:25)
[2025-03-03 06:18] LABS: Interpretation NEGATIVE
[2025-03-03 08:00] VITALS: BP 101/70; PULSE 73; RESP 18; TEMP 36.1; O2SAT 97
[2025-03-03] MEDS: PYRIDOXINE 50 MG TABLET PO (08:57)
[2025-03-03] MEDS: rifAMPin 300 MG CAPSULE PO ×2 (08:57→21:25)
[2025-03-03] MEDS: ENOXAPARIN SOD INJ 40 MG/0.4 ML SYRINGE SC (08:57)
[2025-03-03] MEDS: ETHAMBUTOL HCL 400 MG TABLET PO (08:57)
[2025-03-03] MEDS: ISONIAZID 300 MG TABLET PO (08:57)
--- NOTE | 2025-03-03 11:00 | PC.SS ---
SS follow up note; SS attempted to contact financial counselor, SS left Voicemail.
[2025-03-03 12:00] VITALS: BP 123/81; PULSE 89; RESP 19; TEMP 36.3; O2SAT 97
--- NOTE | 2025-03-03 12:00 | PD.RESPRO ---
Documentation for date of: 03/03/25 Subjective Subjective Interval history: Patient was seen and examined at bedside this morning. No fevers overnight. No new complaints at this time, was still pending health department for patient's disposition. Patient will get labs weekly. No more labs until next week. Exam Vital Signs Temp Pulse Resp BP Pulse Ox O2 Del Method 97 F 73 18 101/70 97 Room Air 03/03/25 08:00 03/03/25 08:00 03/03/25 08:00 03/03/25 08:00 03/03/25 08:00 03/03/25 08:00 Narrative Exam General: A/O x3, no acute distress, well-nourished, well-developed Eyes: PERRL, EOMI. Anicteric, vision grossly intact. Ears: No ear pain, no ear discharge, Hearing grossly intact. Nose: No nasal discharge. Mouth/Throat: Moist mucous membranes, no redness, no lesions. Neck: Neck supple, non-tender, no cervical lymphadenopathy. Lungs: Clear АНДРЕЙ to auscultation and percussion, No accessory muscle use. Cardio: Normal S1/S2, regular rhythm, tachycardic, no murmurs, no JVD Abdomen: Soft, non-tender, no palpable masses, peristalsis present, no guarding or rebound. Extremities: Symmetrical, no significant deformities, no peripheral edema , non-tender, peripheral pulses presents. Skin: No rashes, no lesions, warm to touch. Neuro: No focal neurological deficits. motor and sensory intact Psych: Cooperative, appropriate mood and effect. Objective Labs 03/02/25 04:48 03/02/25 04:48 Labs: Laboratory Results - last 24 hr 02/27/25 05:23 Beta-(1,3)-D-Glucan <31 B-(1,3)-D-Glucan Intrp NEGATIVE Quality Measures Quality Measures none Assessment & Plan Assessment Current Active Medications: Generic Name Dose Route Start Last Admin Trade Name Freq PRN Reason Stop Dose Admin Acetaminophen 650 mg 02/25/25 18:32 02/25/25 18:57 Acetaminophen 325 Mg Tablet PO 03/27/25 18:31 650 mg Q6H PRN Administration pain 1-3 and Fever >100.4 Enoxaparin Sodium 40 mg 02/26/25 09:00 03/03/25 08:57 Enoxaparin Sod Inj 40 Mg/0.4 Ml Syringe SC 03/12/25 08:59 40 mg QDAY YUMIKO Administration Ethambutol HCl 400 mg 02/27/25 15:45 03/03/25 08:57 Ethambutol Hcl 400 Mg Tablet PO 03/29/25 15:44 400 mg QDAY YUMIKO Administration Isoniazid 300 mg 02/27/25 15:30 03/03/25 08:57 Isoniazid 300 Mg Tablet PO 03/29/25 15:29 300 mg QDAY YUMIKO Administration Ondansetron HCl 4 mg 02/25/25 18:32 Ondansetron Inj 2 Mg/Ml Inj 2 Ml IV 03/27/25 18:31 Q6H PRN NAUSEA OR VOMITING Protocol Pyrazinamide 500 mg 02/27/25 15:45 03/03/25 06:04 Pyrazinamide 500 Mg Tablet PO 03/29/25 15:44 500 mg TID YUMIKO Administration Pyridoxine HCl 50 mg 03/02/25 09:00 03/03/25 08:57 Pyridoxine 50 Mg Tablet PO 03/02/26 12:00 50 mg QDAY YUMIKO Administration Rifampin 300 mg 02/27/25 21:00 03/03/25 08:57 Rifampin 300 Mg Capsule PO 03/29/25 20:59 300 mg BID YUMIKO Administration Plan 24-year-old male with no relevant past medical history was admitted to the hospital 02/25/2025 for TB rule out in the setting of cavitary lesions on imaging. #Tuberculosis #Bilateral cavitary lesions #Shortness of breath #Cough #Sore throat #Leukocytosis Patient came in with complaints of some shortness of breath along with cough and sore throat for the past 5 months. Patient denied any night sweats or hemoptysis. Patient's chest CT that showed severe cavitary disease in both lungs and chest x-ray also showed cavitary lesions in both lungs. Patient states that he has not had any sick contacts. Patient does not recall having any prior pulmonary issues in the past when he was a child. Patient's WBCs were 18.2 initially, downtrending today with no fevers Cocci negative Discussed with pulmonology given cavitary lesions and stated could be Cocci and to repeat Cocci on Sunday if it was negative and to covert for MRSA PNA and get autoimmune workup as well as echo for endocarditis. Blood culture negative in 48 hrs and sputum mixed oral [employer]'s positive 12/15 and quantiferon as well. Discontinued azithromycin and Rocephin (02/25/2025?02/27/2025), Vancomycin (02/26/2025-02/27/2025) and Fluconazole (02/26/2025-03/01/2025) Plan: RIPE (02/27/2025-) Pyridoxine 50 mg daily Isolation and airborne precautions ID consulted, appreciate recommendations #Thrombocytosis Patient's platelets were 828 initially Most likely hemoconcentration as patient did appear to be a little bit dehydrated. Plan: Will continue to monitor Disposition: Pending Health department. TB positive Diet: regular GI prophylaxis: not indicated DVT prophylaxis: lovenox Code:Full code Case disclosed with Attending Dr. Bud Gomez PGY1 Disclaimer: Even though this this note was dictated by speech recognition and even though it was carefully revised there may still be minor errors in grinder operator automatic due to voice recognition software. Attending Provider Attestation/Addendum I attest that I was physically present for the evaluation, physical examination, lab and imaging review of the patient with the residents. I discussed the case with the residents and agree with the findings and plans of care as documented above. At bedside today, patient states he is feeling well and does not have any complaints. Denies any shortness of breath, chest pain, cough. Has been saturating well on room air. Has been tolerating diet well, drinking well. Awaiting recommendation from health department and culture results. José Miguel Farrell MD
[2025-03-03 16:00] VITALS: BP 123/82; PULSE 80; RESP 17; TEMP 36.3; O2SAT 97
[2025-03-03 20:00] VITALS: BP 112/67; PULSE 97; RESP 18; TEMP 36.1; O2SAT 94
[2025-03-04] VITALS: BP 104/71; PULSE 98; RESP 18; TEMP 36.1; O2SAT 95
[2025-03-04 04:00] VITALS: BP 106/63; PULSE 95; RESP 17; TEMP 36.1; O2SAT 96
[2025-03-04] MEDS: PYRAZINAMIDE 500 MG TABLET PO ×3 (06:11→16:08)
[2025-03-04 08:00] VITALS: BP 110/62; PULSE 90; RESP 18; TEMP 36.3; O2SAT 96
[2025-03-04] MEDS: ENOXAPARIN SOD INJ 40 MG/0.4 ML SYRINGE SC (08:12)
[2025-03-04] MEDS: rifAMPin 300 MG CAPSULE PO ×2 (08:12→16:08)
[2025-03-04] MEDS: PYRIDOXINE 50 MG TABLET PO (08:12)
[2025-03-04] MEDS: ISONIAZID 300 MG TABLET PO (08:12)
[2025-03-04] MEDS: ETHAMBUTOL HCL 400 MG TABLET PO (08:12)
--- NOTE | 2025-03-04 09:04 | PC.SS ---
SS follow up note; Pending Health Department clearance, patient will need to get treated before discharging back home.
--- NOTE | 2025-03-04 09:10 | PC.SS ---
SS follow up note; SS contacted Nicole the financial Counselor informed SS that patient is Pending [facility] worker to follow up with patient. SS will notify patient.
[2025-03-04 12:00] VITALS: BP 105/77; PULSE 115; RESP 18; TEMP 36.3; O2SAT 96
--- NOTE | 2025-03-04 14:03 | PD.RESPRO ---
Documentation for date of: 03/04/25 Subjective Subjective Interval history: Overnight, no acute events reported. Patient had seen and examined at bedside. Patient is very agitated to leave as soon as possible. [facility] department stopped by yesterday, and updated on patient's current right regimen. Will update patient's current medications to reflect current recommended TB recommendations per [facility] Patient is currently on ethambutol 1200 mg daily, isoniazid 300 mg p.o. daily, pyrazinamide 1500 mg daily, and rifampin 600 mg daily. Exam Vital Signs Temp Pulse Resp BP Pulse Ox O2 Del Method 97.4 F 115 H 18 105/77 96 Room Air 03/04/25 12:00 03/04/25 12:00 03/04/25 12:00 03/04/25 12:00 03/04/25 12:00 03/04/25 12:00 Narrative Exam General: A/O x3, no acute distress, well-nourished, well-developed HEENT: NC/AT, no scleral icterus, no conjunctival pallor, MMM Lungs: Clear АНДРЕЙ to auscultation and percussion, No accessory muscle use. Cardio: Normal S1/S2, regular rhythm, tachycardic, no murmurs, no JVD Abdomen: Soft, non-tender, no palpable masses, peristalsis present, no guarding or rebound. Extremities: Symmetrical, no significant deformities, no peripheral edema , non-tender, peripheral pulses presents. Skin: No rashes, no lesions, warm to touch. Neuro: No focal neurological deficits. motor and sensory intact Psych: Cooperative, appropriate mood and effect. Objective Labs 03/02/25 04:48 03/02/25 04:48 Quality Measures Quality Measures none Assessment & Plan Assessment Current Active Medications: Generic Name Dose Route Start Last Admin Trade Name Freq PRN Reason Stop Dose Admin Acetaminophen 650 mg 02/25/25 18:32 02/25/25 18:57 Acetaminophen 325 Mg Tablet PO 03/27/25 18:31 650 mg Q6H PRN Administration pain 1-3 and Fever >100.4 Enoxaparin Sodium 40 mg 02/26/25 09:00 03/04/25 08:12 Enoxaparin Sod Inj 40 Mg/0.4 Ml Syringe SC 03/12/25 08:59 40 mg QDAY YUMIKO Administration Ethambutol HCl 1,200 mg 03/05/25 09:00 Ethambutol Hcl 400 Mg Tablet PO 04/04/25 08:59 QDAY YUMIKO Isoniazid 300 mg 02/27/25 15:30 03/04/25 08:12 Isoniazid 300 Mg Tablet PO 03/29/25 15:29 300 mg QDAY YUMIKO Administration Ondansetron HCl 4 mg 02/25/25 18:32 Ondansetron Inj 2 Mg/Ml Inj 2 Ml IV 03/27/25 18:31 Q6H PRN NAUSEA OR VOMITING Protocol Pyrazinamide 1,500 mg 03/05/25 09:00 Pyrazinamide 500 Mg Tablet PO 04/04/25 08:59 QDAY YUMIKO Pyrazinamide 1,000 mg 03/04/25 14:01 Pyrazinamide 500 Mg Tablet PO 03/04/25 14:02 X1 ONE Pyridoxine HCl 50 mg 03/02/25 09:00 03/04/25 08:12 Pyridoxine 50 Mg Tablet PO 03/02/26 12:00 50 mg QDAY YUMIKO Administration Rifampin 600 mg 03/05/25 09:00 Rifampin 300 Mg Capsule PO 04/04/25 08:59 QDAY YUMIKO Rifampin 300 mg 03/04/25 13:59 Rifampin 300 Mg Capsule PO 03/04/25 14:00 X1 ONE Plan 24-year-old male with no relevant past medical history was admitted to the hospital 02/25/2025 for TB rule out in the setting of cavitary lesions on imaging. #Active Tuberculosis #Bilateral cavitary lesions #Shortness of breath #Cough #Sore throat #Leukocytosis Patient came in with complaints of some shortness of breath along with cough and sore throat for the past 5 months. Patient denied any night sweats or hemoptysis. Patient's chest CT that showed severe cavitary disease in both lungs and chest x-ray also showed cavitary lesions in both lungs. Patient states that he has not had any sick contacts. Patient does not recall having any prior pulmonary issues in the past when he was a child. Patient's WBCs were 18.2 initially, downtrending today with no fevers Cocci negative Discussed with pulmonology given cavitary lesions and stated could be Cocci and to repeat Cocci on Sunday if it was negative and to covert for MRSA PNA and get autoimmune workup as well as echo for endocarditis. Blood culture negative in 48 hrs and sputum mixed oral [employer]'s positive 12/15 and quantiferon as well. Discontinued azithromycin and Rocephin (02/25/2025?02/27/2025), Vancomycin (02/26/2025-02/27/2025) and Fluconazole (02/26/2025-03/01/2025) Plan: RIPE (02/27/2025-) updated medications per [facility] -Isoniazid 300mgQD -Ethambutol 1200mg QD -Pyrazinamide 1500mg QD -Rifampin 600mg QD Pyridoxine 50 mg daily Isolation and airborne precautions ID consulted, appreciate recommendations #Thrombocytosis Patient's platelets were 828 initially Most likely hemoconcentration as patient did appear to be a little bit dehydrated. Plan: Will continue to monitor Disposition: Pending Health department. TB positive Diet: regular GI prophylaxis: not indicated DVT prophylaxis: lovenox Code:Full code Patient's care and plan discussed with my attending Dr. Bud Reynoso, PGY-2 Disclaimer: Even though this this note was dictated by speech recognition and even though it was carefully revised there may still be minor errors in bus matron due to voice recognition software. Attending Provider Attestation/Addendum I attest that I was physically present for the evaluation, physical examination, lab and imaging review of the patient with the residents. I discussed the case with the residents and agree with the findings and plans of care as documented above. At bedside today, patient states he is feeling well and does not have new complaints. Appears comfortable, saturating well on room air, lungs are clear on auscultation. Sputum culture is pending, pending recommendations from health department. Infectious disease following, appreciate recommendations. José Miguel Farrell MD
--- NOTE | 2025-03-04 14:31 | PD.IDPROG ---
Subjective Subjective Interval history: lives alone, so may go home after 2 weeks at discretion of health dept depending on f/u afb's. Exam Vital Signs Temp Pulse Resp BP Pulse Ox O2 Del Method 97.4 F 115 H 18 105/77 96 Room Air 03/04/25 12:00 03/04/25 12:00 03/04/25 12:00 03/04/25 12:00 03/04/25 12:00 03/04/25 12:00 Narrative Exam limited eval Objective - Internal Medicine Labs 03/02/25 04:48 03/02/25 04:48 Assessment & Plan A&P Narrative cavitary lung disease on chest imaging. qtf and afb's pos by phone from health dept on sunday. with pos mtb naat noted. limited pmh he is not coughing, so you may have lots of trouble getting sputums. testing of contacts is at the discretion of health dept. try to wait about 2 weeks to repeat the sputums as it usually takes that long to clear sputum cx at minimum, if no coughing, even with induction, document that and let health dept decide on isolation will check in on sunday weekly cbc, cmp ok. but if you insist on more often. that is a choice Time Spent With Patient Time: Total time spent is greater than 50% in coordination of care (as documented) at patient's floor/unit and/or counseling patient:
[2025-03-04 16:00] VITALS: BP 103/72; PULSE 93; RESP 18; TEMP 36.1; O2SAT 93
[2025-03-04] MEDS: ETHAMBUTOL HCL 400 MG TABLET 800 MG PO (16:08)
--- NOTE | 2025-03-04 16:11 | PC.NURSE ---
Per MD Edgardo nix to remove iv and keep pt without an IV for now.
[2025-03-04 20:00] VITALS: BP 97/58; PULSE 82; RESP 17; TEMP 36.4; O2SAT 98
[2025-03-05] VITALS: BP 108/71; PULSE 92; RESP 18; TEMP 36.3; O2SAT 96
[2025-03-05 04:00] VITALS: BP 105/62; PULSE 89; RESP 18; TEMP 36.3; O2SAT 97
[2025-03-05 08:00] VITALS: BP 95/57; PULSE 95; RESP 18; TEMP 36.5; O2SAT 96
[2025-03-05 08:38] VITALS: BMI 25.0
[2025-03-05] MEDS: rifAMPin 300 MG CAPSULE 600 MG PO (09:34)
[2025-03-05] MEDS: PYRIDOXINE 50 MG TABLET PO (09:34)
[2025-03-05] MEDS: ETHAMBUTOL HCL 400 MG TABLET 1200 MG PO (09:34)
[2025-03-05] MEDS: PYRAZINAMIDE 500 MG TABLET 1500 MG PO (09:34)
[2025-03-05] MEDS: ISONIAZID 300 MG TABLET PO (09:35)
[2025-03-05] MEDS: ENOXAPARIN SOD INJ 40 MG/0.4 ML SYRINGE SC (09:42)
--- NOTE | 2025-03-05 11:08 | ESPR_ITS ---
Documentation for date of: 03/05/25 Subjective Subjective Interval history: Patient was seen and examined at bedside this morning. No fevers overnight. No new complaints at this time, was still pending health department for patient's disposition after they decide if it is safe to discharge home on isolation or not. Exam Vital Signs Temp Pulse Resp BP Pulse Ox O2 Del Method 97.7 F 95 18 95/57 L 96 Room Air 03/05/25 08:00 03/05/25 08:00 03/05/25 08:00 03/05/25 08:00 03/05/25 08:00 03/05/25 04:00 Narrative Exam General: A/O x3, no acute distress, well-nourished, well-developed Eyes: PERRL, EOMI. Anicteric, vision grossly intact. Ears: No ear pain, no ear discharge, Hearing grossly intact. Nose: No nasal discharge. Mouth/Throat: Moist mucous membranes, no redness, no lesions. Neck: Neck supple, non-tender, no cervical lymphadenopathy. Lungs: Clear АНДРЕЙ to auscultation and percussion, No accessory muscle use. Cardio: Normal S1/S2, regular rhythm, tachycardic, no murmurs, no JVD Abdomen: Soft, non-tender, no palpable masses, peristalsis present, no guarding or rebound. Extremities: Symmetrical, no significant deformities, no peripheral edema , non-tender, peripheral pulses presents. Skin: No rashes, no lesions, warm to touch. Neuro: No focal neurological deficits. motor and sensory intact Psych: Cooperative, appropriate mood and effect. Objective Labs 03/02/25 04:48 03/02/25 04:48 Labs: Laboratory Results - last 24 hr 02/26/25 04:43 TB Test (QFT) See Sep Rpt Quality Measures Quality Measures none Assessment & Plan Assessment Current Active Medications: Generic Name Dose Route Start Last Admin Trade Name Freq PRN Reason Stop Dose Admin Acetaminophen 650 mg 02/25/25 18:32 02/25/25 18:57 Acetaminophen 325 Mg Tablet PO 03/27/25 18:31 650 mg Q6H PRN Administration pain 1-3 and Fever >100.4 Enoxaparin Sodium 40 mg 02/26/25 09:00 03/05/25 09:42 Enoxaparin Sod Inj 40 Mg/0.4 Ml Syringe SC 03/12/25 08:59 40 mg QDAY YUMIKO Administration Ethambutol HCl 1,200 mg 03/05/25 09:00 03/05/25 09:34 Ethambutol Hcl 400 Mg Tablet PO 04/04/25 08:59 1,200 mg QDAY YUMIKO Administration Isoniazid 300 mg 02/27/25 15:30 03/05/25 09:35 Isoniazid 300 Mg Tablet PO 03/29/25 15:29 300 mg QDAY YUMIKO Administration Ondansetron HCl 4 mg 02/25/25 18:32 Ondansetron Inj 2 Mg/Ml Inj 2 Ml IV 03/27/25 18:31 Q6H PRN NAUSEA OR VOMITING Protocol Pyrazinamide 1,500 mg 03/05/25 09:00 03/05/25 09:34 Pyrazinamide 500 Mg Tablet PO 04/04/25 08:59 1,500 mg QDAY YUMIKO Administration Pyridoxine HCl 50 mg 03/02/25 09:00 03/05/25 09:34 Pyridoxine 50 Mg Tablet PO 03/02/26 12:00 50 mg QDAY YUMIKO Administration Rifampin 600 mg 03/05/25 09:00 03/05/25 09:34 Rifampin 300 Mg Capsule PO 04/04/25 08:59 600 mg QDAY YUMIKO Administration Plan 24-year-old male with no relevant past medical history was admitted to the hospital 02/25/2025 for TB rule out in the setting of cavitary lesions on imaging. #Active Tuberculosis #Bilateral cavitary lesions #Shortness of breath #Cough #Sore throat #Leukocytosis Patient came in with complaints of some shortness of breath along with cough and sore throat for the past 5 months. Patient denied any night sweats or hemoptysis. Patient's chest CT that showed severe cavitary disease in both lungs and chest x-ray also showed cavitary lesions in both lungs. Patient states that he has not had any sick contacts. Patient does not recall having any prior pulmonary issues in the past when he was a child. Patient's WBCs were 18.2 initially, downtrending with no fevers Cocci negative Discussed with pulmonology given cavitary lesions and stated could be Cocci and to repeat Cocci on Sunday if it was negative and to covert for MRSA PNA and get autoimmune workup as well as echo for endocarditis. Blood culture negative in 48 hrs and sputum mixed oral [employer]'s positive 12/15 and quantiferon as well. Discontinued azithromycin and Rocephin (02/25/2025?02/27/2025), Vancomycin (02/26/2025-02/27/2025) and Fluconazole (02/26/2025-03/01/2025) Plan: RIPE (02/27/2025-) updated medications per [facility] -Isoniazid 300mgQD -Ethambutol 1200mg QD -Pyrazinamide 1500mg QD -Rifampin 600mg QD Pyridoxine 50 mg daily Isolation and airborne precautions ID consulted, appreciate recommendations #Thrombocytosis Patient's platelets were 828 initially Most likely hemoconcentration as patient did appear to be a little bit dehydrated. Plan: Will continue to monitor Disposition: Pending Health department. TB positive Diet: regular GI prophylaxis: not indicated DVT prophylaxis: lovenox Code:Full code Patient's care and plan discussed with my attending Dr. Bud Gomez, PGY-1 Disclaimer: Even though this this note was dictated by speech recognition and even though it was carefully revised there may still be minor errors in creative services director due to voice recognition software. Attending Provider Attestation/Addendum I attest that I was physically present for the evaluation, physical examination, lab and imaging review of the patient with the residents. I discussed the case with the residents and agree with the findings and plans of care as documented above. At bedside, patient states she is feeling well and does not have any complaints. Denies any shortness of breath, cough, chest pain. Saturating well on room air. Rest of the vitals are within normal limits as well. Awaiting recommendation from health department. José Miguel Farrell MD
[2025-03-05 12:00] VITALS: BP 102/61; PULSE 91; RESP 18; TEMP 36.1; O2SAT 94
[2025-03-05 16:00] VITALS: BP 110/64; PULSE 102; RESP 19; TEMP 36.7; O2SAT 96
[2025-03-05 20:00] VITALS: BP 123/69; PULSE 107; RESP 20; TEMP 36.6; O2SAT 96
[2025-03-06] VITALS: BP 119/68; PULSE 100; RESP 17; TEMP 36.7; O2SAT 98
[2025-03-06 04:00] VITALS: BP 118/72; PULSE 99; RESP 19; TEMP 36.6; O2SAT 99
[2025-03-06 08:00] VITALS: BP 106/56; PULSE 81; RESP 18; TEMP 36.3; O2SAT 96
--- NOTE | 2025-03-06 10:13 | PD.RESPRO ---
Documentation for date of: 03/06/25 Subjective Subjective Interval history: Patient was seen and examined at bedside this morning. No acute overnight events. Patient's cultures came back as well as concern from, concern for and was negative and cultures that show AFB, but is still pending sensitivity. No other complaints at this time. Exam Vital Signs Temp Pulse Resp BP Pulse Ox O2 Del Method 97.3 F 81 18 106/56 L 96 Room Air 03/06/25 08:00 03/06/25 08:00 03/06/25 08:00 03/06/25 08:00 03/06/25 08:00 03/06/25 08:00 Narrative Exam General: A/O x3, no acute distress, well-nourished, well-developed Eyes: PERRL, EOMI. Anicteric, vision grossly intact. Ears: No ear pain, no ear discharge, Hearing grossly intact. Nose: No nasal discharge. Mouth/Throat: Moist mucous membranes, no redness, no lesions. Neck: Neck supple, non-tender, no cervical lymphadenopathy. Lungs: Clear АНДРЕЙ to auscultation and percussion, No accessory muscle use. Cardio: Normal S1/S2, regular rhythm, tachycardic, no murmurs, no JVD Abdomen: Soft, non-tender, no palpable masses, peristalsis present, no guarding or rebound. Extremities: Symmetrical, no significant deformities, no peripheral edema , non-tender, peripheral pulses presents. Skin: No rashes, no lesions, warm to touch. Neuro: No focal neurological deficits. motor and sensory intact Psych: Cooperative, appropriate mood and effect Objective Labs 03/02/25 04:48 03/02/25 04:48 Quality Measures Quality Measures none Assessment & Plan Assessment Current Active Medications: Generic Name Dose Route Start Last Admin Trade Name Freq PRN Reason Stop Dose Admin Acetaminophen 650 mg 02/25/25 18:32 02/25/25 18:57 Acetaminophen 325 Mg Tablet PO 03/27/25 18:31 650 mg Q6H PRN Administration pain 1-3 and Fever >100.4 Enoxaparin Sodium 40 mg 02/26/25 09:00 03/05/25 09:42 Enoxaparin Sod Inj 40 Mg/0.4 Ml Syringe SC 03/12/25 08:59 40 mg QDAY YUMIKO Administration Ethambutol HCl 1,200 mg 03/05/25 09:00 03/05/25 09:34 Ethambutol Hcl 400 Mg Tablet PO 04/04/25 08:59 1,200 mg QDAY YUMIKO Administration Isoniazid 300 mg 02/27/25 15:30 03/05/25 09:35 Isoniazid 300 Mg Tablet PO 03/29/25 15:29 300 mg QDAY YUMIKO Administration Ondansetron HCl 4 mg 02/25/25 18:32 Ondansetron Inj 2 Mg/Ml Inj 2 Ml IV 03/27/25 18:31 Q6H PRN NAUSEA OR VOMITING Protocol Pyrazinamide 1,500 mg 03/05/25 09:00 03/05/25 09:34 Pyrazinamide 500 Mg Tablet PO 04/04/25 08:59 1,500 mg QDAY YUMIKO Administration Pyridoxine HCl 50 mg 03/02/25 09:00 03/05/25 09:34 Pyridoxine 50 Mg Tablet PO 03/02/26 12:00 50 mg QDAY YUMIKO Administration Rifampin 600 mg 03/05/25 09:00 03/05/25 09:34 Rifampin 300 Mg Capsule PO 04/04/25 08:59 600 mg QDAY YUMIKO Administration Plan 24-year-old male with no relevant past medical history was admitted to the hospital 02/25/2025 for TB rule out in the setting of cavitary lesions on imaging. #Active Tuberculosis #Bilateral cavitary lesions #Shortness of breath #Cough #Sore throat #Leukocytosis Patient came in with complaints of some shortness of breath along with cough and sore throat for the past 5 months. Patient denied any night sweats or hemoptysis. Patient's chest CT that showed severe cavitary disease in both lungs and chest x-ray also showed cavitary lesions in both lungs. Patient states that he has not had any sick contacts. Patient does not recall having any prior pulmonary issues in the past when he was a child. Patient's WBCs were 18.2 initially, downtrending with no fevers Cocci negative Discussed with pulmonology given cavitary lesions and stated could be Cocci and to repeat Cocci on Sunday if it was negative and to covert for MRSA PNA and get autoimmune workup as well as echo for endocarditis. Blood culture negative in 48 hrs and sputum mixed oral [employer]'s positive pending sensitivity and quantiferon negative Discontinued azithromycin and Rocephin (02/25/2025?02/27/2025), Vancomycin (02/26/2025-02/27/2025) and Fluconazole (02/26/2025-03/01/2025) Plan: RIPE (02/27/2025-) updated medications per [facility] -Isoniazid 300mgQD -Ethambutol 1200mg QD -Pyrazinamide 1500mg QD -Rifampin 600mg QD Pyridoxine 50 mg daily Isolation and airborne precautions ID consulted, appreciate recommendations #Thrombocytosis Patient's platelets were 828 initially Most likely hemoconcentration as patient did appear to be a little bit dehydrated. Plan: Will continue to monitor Disposition: Pending Health department. TB positive Diet: regular GI prophylaxis: not indicated DVT prophylaxis: lovenox Code:Full code Patient's care and plan discussed with my attending Dr. Bud Gomez, PGY-1 Disclaimer: Even though this this note was dictated by speech recognition and even though it was carefully revised there may still be minor errors in emergency manager due to voice recognition software. Attending Provider Attestation/Addendum I attest that I was physically present for the evaluation, physical examination, lab and imaging review of the patient with the residents. I discussed the case with the residents and agree with the findings and plans of care as documented above. Patient continues to be stable at bedside, appears comfortable denies shortness of breath, cough or chest pain. Awaiting health department recommendations. José Miguel Farrell MD
[2025-03-06] MEDS: ISONIAZID 300 MG TABLET PO (10:18)
[2025-03-06] MEDS: rifAMPin 300 MG CAPSULE 600 MG PO (10:18)
[2025-03-06] MEDS: ENOXAPARIN SOD INJ 40 MG/0.4 ML SYRINGE SC (10:18)
[2025-03-06] MEDS: PYRAZINAMIDE 500 MG TABLET 1500 MG PO (10:18)
[2025-03-06] MEDS: PYRIDOXINE 50 MG TABLET PO (10:18)
[2025-03-06] MEDS: ETHAMBUTOL HCL 400 MG TABLET 1200 MG PO (10:22)
--- NOTE | 2025-03-06 13:13 | PC.SS ---
Rounding: Pending Health Dept house call to determine if pt can safely DC home. Per team Possibly have answer by 03/12
[2025-03-06 14:00] VITALS: BP 110/60; PULSE 80; RESP 18; TEMP 36.2; O2SAT 97
[2025-03-06 22:00] VITALS: BP 120/73; PULSE 76; RESP 18; TEMP 36.6; O2SAT 96
[2025-03-07 06:00] VITALS: BP 101/59; PULSE 82; RESP 17; TEMP 36.2; O2SAT 98
[2025-03-07 08:00] VITALS: BP 112/54; PULSE 88; RESP 18; TEMP 36.8; O2SAT 97
[2025-03-07] MEDS: ENOXAPARIN SOD INJ 40 MG/0.4 ML SYRINGE SC (09:43)
[2025-03-07] MEDS: PYRAZINAMIDE 500 MG TABLET 1500 MG PO (09:43)
[2025-03-07] MEDS: rifAMPin 300 MG CAPSULE 600 MG PO (09:43)
[2025-03-07] MEDS: ETHAMBUTOL HCL 400 MG TABLET 1200 MG PO (09:43)
[2025-03-07] MEDS: PYRIDOXINE 50 MG TABLET PO (09:43)
[2025-03-07] MEDS: ISONIAZID 300 MG TABLET PO (09:43)
--- NOTE | 2025-03-07 11:59 | ESPR_ITS ---
Documentation for date of: 03/07/25 Subjective Subjective Interval history: Patient was seen and examined bedside morning. No acute overnight events. Patient has been having cough on and off he stated, but has not been having any blood in the cough or producing any phlegm. Otherwise no other complaints. Exam Vital Signs Temp Pulse Resp BP Pulse Ox O2 Del Method 98.2 F 88 18 112/54 L 97 Room Air 03/07/25 08:00 03/07/25 08:00 03/07/25 08:00 03/07/25 08:00 03/07/25 08:00 03/07/25 08:00 Narrative Exam General: A/O x3, no acute distress, well-nourished, well-developed Eyes: PERRL, EOMI. Anicteric, vision grossly intact. Ears: No ear pain, no ear discharge, Hearing grossly intact. Nose: No nasal discharge. Mouth/Throat: Moist mucous membranes, no redness, no lesions. Neck: Neck supple, non-tender, no cervical lymphadenopathy. Lungs: Clear АНДРЕЙ to auscultation and percussion, No accessory muscle use. Cardio: Normal S1/S2, regular rhythm, tachycardic, no murmurs, no JVD Abdomen: Soft, non-tender, no palpable masses, peristalsis present, no guarding or rebound. Extremities: Symmetrical, no significant deformities, no peripheral edema , non-tender, peripheral pulses presents. Skin: No rashes, no lesions, warm to touch. Neuro: No focal neurological deficits. motor and sensory intact Psych: Cooperative, appropriate mood and effect Objective Labs 03/02/25 04:48 03/02/25 04:48 Quality Measures Quality Measures none Assessment & Plan Assessment Current Active Medications: Generic Name Dose Route Start Last Admin Trade Name Freq PRN Reason Stop Dose Admin Acetaminophen 650 mg 02/25/25 18:32 02/25/25 18:57 Acetaminophen 325 Mg Tablet PO 03/27/25 18:31 650 mg Q6H PRN Administration pain 1-3 and Fever >100.4 Enoxaparin Sodium 40 mg 02/26/25 09:00 03/07/25 09:43 Enoxaparin Sod Inj 40 Mg/0.4 Ml Syringe SC 03/12/25 08:59 40 mg QDAY YUMIKO Administration Ethambutol HCl 1,200 mg 03/05/25 09:00 03/07/25 09:43 Ethambutol Hcl 400 Mg Tablet PO 04/04/25 08:59 1,200 mg QDAY YUMIKO Administration Isoniazid 300 mg 02/27/25 15:30 03/07/25 09:43 Isoniazid 300 Mg Tablet PO 03/29/25 15:29 300 mg QDAY YUMIKO Administration Ondansetron HCl 4 mg 02/25/25 18:32 Ondansetron Inj 2 Mg/Ml Inj 2 Ml IV 03/27/25 18:31 Q6H PRN NAUSEA OR VOMITING Protocol Pyrazinamide 1,500 mg 03/05/25 09:00 03/07/25 09:43 Pyrazinamide 500 Mg Tablet PO 04/04/25 08:59 1,500 mg QDAY YUMIKO Administration Pyridoxine HCl 50 mg 03/02/25 09:00 03/07/25 09:43 Pyridoxine 50 Mg Tablet PO 03/02/26 12:00 50 mg QDAY YUMIKO Administration Rifampin 600 mg 03/05/25 09:00 03/07/25 09:43 Rifampin 300 Mg Capsule PO 04/04/25 08:59 600 mg QDAY YUMIKO Administration Plan 24-year-old male with no relevant past medical history was admitted to the hospital 02/25/2025 for TB rule out in the setting of cavitary lesions on imaging. #Active Tuberculosis #Bilateral cavitary lesions #Shortness of breath #Cough #Sore throat #Leukocytosis Patient came in with complaints of some shortness of breath along with cough and sore throat for the past 5 months. Patient denied any night sweats or hemoptysis. Patient's chest CT that showed severe cavitary disease in both lungs and chest x-ray also showed cavitary lesions in both lungs. Patient states that he has not had any sick contacts. Patient does not recall having any prior pulmonary issues in the past when he was a child. Patient's WBCs were 18.2 initially, downtrending with no fevers Cocci negative Discussed with pulmonology given cavitary lesions and stated could be Cocci and to repeat Cocci on Sunday if it was negative and to covert for MRSA PNA and get autoimmune workup as well as echo for endocarditis. Blood culture negative in 48 hrs and sputum mixed oral [employer]'s positive pending sensitivity and quantiferon negative Discontinued azithromycin and Rocephin (02/25/2025?02/27/2025), Vancomycin (02/26/2025-02/27/2025) and Fluconazole (02/26/2025-03/01/2025) Plan: RIPE (02/27/2025-) updated medications per [facility] -Isoniazid 300mgQD -Ethambutol 1200mg QD -Pyrazinamide 1500mg QD -Rifampin 600mg QD Pyridoxine 50 mg daily Isolation and airborne precautions ID consulted, appreciate recommendations #Thrombocytosis Patient's platelets were 828 initially Most likely hemoconcentration as patient did appear to be a little bit dehydrated. Plan: Will continue to monitor Disposition: Pending Health department. TB positive Diet: regular GI prophylaxis: not indicated DVT prophylaxis: lovenox Code:Full code Patient's care and plan discussed with my attending Dr. Bud Gomez, PGY-1 Disclaimer: Even though this this note was dictated by speech recognition and even though it was carefully revised there may still be minor errors in online user experience strategist due to voice recognition software. Attending Provider Attestation/Addendum I attest that I was physically present for the evaluation, physical examination, lab and imaging review of the patient with the residents. I discussed the case with the residents and agree with the findings and plans of care as documented above. At bedside today, patient continues to be comfortable. Denies any new symptoms. Awaiting health department recommendations. José Miguel Farrell MD
[2025-03-07 14:00] VITALS: BP 108/64; PULSE 85; RESP 18; TEMP 36.8; O2SAT 97
[2025-03-07 16:00] VITALS: BP 112/67; PULSE 79; RESP 20; TEMP 36.1; O2SAT 97
[2025-03-07 22:00] VITALS: BP 128/76; PULSE 90; RESP 17; TEMP 36.1; O2SAT 96
[2025-03-08 06:00] VITALS: BP 102/58; PULSE 88; RESP 18; TEMP 36.5; O2SAT 96
[2025-03-08] MEDS: PYRIDOXINE 50 MG TABLET PO (08:55)
[2025-03-08] MEDS: ETHAMBUTOL HCL 400 MG TABLET 1200 MG PO (08:55)
[2025-03-08] MEDS: PYRAZINAMIDE 500 MG TABLET 1500 MG PO (08:55)
[2025-03-08] MEDS: ISONIAZID 300 MG TABLET PO (08:55)
[2025-03-08] MEDS: ENOXAPARIN SOD INJ 40 MG/0.4 ML SYRINGE SC (08:55)
[2025-03-08] MEDS: rifAMPin 300 MG CAPSULE 600 MG PO (08:55)
--- NOTE | 2025-03-08 10:06 | ESPR_ITS ---
Documentation for date of: 03/08/25 Subjective Subjective Interval history: Patient was seen and examined at bedside this morning. No acute overnight events. Patient has no new complaints other than wanting to go home, but he understands that he cannot go home as of yet. Exam Vital Signs Temp Pulse Resp BP Pulse Ox O2 Del Method 97.7 F 88 18 102/58 L 96 Room Air 03/08/25 06:00 03/08/25 06:00 03/08/25 06:00 03/08/25 06:00 03/08/25 06:00 03/08/25 06:00 Narrative Exam General: A/O x3, no acute distress, well-nourished, well-developed Eyes: PERRL, EOMI. Anicteric, vision grossly intact. Ears: No ear pain, no ear discharge, Hearing grossly intact. Nose: No nasal discharge. Mouth/Throat: Moist mucous membranes, no redness, no lesions. Neck: Neck supple, non-tender, no cervical lymphadenopathy. Lungs: Clear АНДРЕЙ to auscultation and percussion, No accessory muscle use. Cardio: Normal S1/S2, regular rhythm, tachycardic, no murmurs, no JVD Abdomen: Soft, non-tender, no palpable masses, peristalsis present, no guarding or rebound. Extremities: Symmetrical, no significant deformities, no peripheral edema , non-tender, peripheral pulses presents. Skin: No rashes, no lesions, warm to touch. Neuro: No focal neurological deficits. motor and sensory intact Psych: Cooperative, appropriate mood and effect Objective Labs 03/02/25 04:48 03/02/25 04:48 Quality Measures Quality Measures none Assessment & Plan Assessment Current Active Medications: Generic Name Dose Route Start Last Admin Trade Name Freq PRN Reason Stop Dose Admin Acetaminophen 650 mg 02/25/25 18:32 02/25/25 18:57 Acetaminophen 325 Mg Tablet PO 03/27/25 18:31 650 mg Q6H PRN Administration pain 1-3 and Fever >100.4 Enoxaparin Sodium 40 mg 02/26/25 09:00 03/08/25 08:55 Enoxaparin Sod Inj 40 Mg/0.4 Ml Syringe SC 03/12/25 08:59 40 mg QDAY YUMIKO Administration Ethambutol HCl 1,200 mg 03/05/25 09:00 03/08/25 08:55 Ethambutol Hcl 400 Mg Tablet PO 04/04/25 08:59 1,200 mg QDAY YUMIKO Administration Isoniazid 300 mg 02/27/25 15:30 03/08/25 08:55 Isoniazid 300 Mg Tablet PO 03/29/25 15:29 300 mg QDAY YUMIKO Administration Ondansetron HCl 4 mg 02/25/25 18:32 Ondansetron Inj 2 Mg/Ml Inj 2 Ml IV 03/27/25 18:31 Q6H PRN NAUSEA OR VOMITING Protocol Pyrazinamide 1,500 mg 03/05/25 09:00 03/08/25 08:55 Pyrazinamide 500 Mg Tablet PO 04/04/25 08:59 1,500 mg QDAY YUMIKO Administration Pyridoxine HCl 50 mg 03/02/25 09:00 03/08/25 08:55 Pyridoxine 50 Mg Tablet PO 03/02/26 12:00 50 mg QDAY YUMIKO Administration Rifampin 600 mg 03/05/25 09:00 03/08/25 08:55 Rifampin 300 Mg Capsule PO 04/04/25 08:59 600 mg QDAY YUMIKO Administration Plan 24-year-old male with no relevant past medical history was admitted to the hospital 02/25/2025 for TB rule out in the setting of cavitary lesions on imaging. #Active Tuberculosis #Bilateral cavitary lesions #Shortness of breath #Cough #Sore throat #Leukocytosis Patient came in with complaints of some shortness of breath along with cough and sore throat for the past 5 months. Patient denied any night sweats or hemoptysis. Patient's chest CT that showed severe cavitary disease in both lungs and chest x-ray also showed cavitary lesions in both lungs. Patient states that he has not had any sick contacts. Patient does not recall having any prior pulmonary issues in the past when he was a child. Patient's WBCs were 18.2 initially, downtrending with no fevers Cocci negative Discussed with pulmonology given cavitary lesions and stated could be Cocci and to repeat Cocci on Sunday if it was negative and to covert for MRSA PNA and get autoimmune workup as well as echo for endocarditis. Blood culture negative in 48 hrs and sputum mixed oral [employer]'s positive pending sensitivity and quantiferon negative Discontinued azithromycin and Rocephin (02/25/2025?02/27/2025), Vancomycin (02/26/2025-02/27/2025) and Fluconazole (02/26/2025-03/01/2025) Plan: RIPE (02/27/2025-) -Isoniazid 300mgQD -Ethambutol 1200mg QD -Pyrazinamide 1500mg QD -Rifampin 600mg QD Pyridoxine 50 mg daily Isolation and airborne precautions ID consulted, appreciate recommendations Ordered morning labs #Thrombocytosis Patient's platelets were 828 initially Most likely hemoconcentration as patient did appear to be a little bit dehydrated. Plan: Will continue to monitor Disposition: Pending Health department. TB positive Diet: regular GI prophylaxis: not indicated DVT prophylaxis: lovenox Code:Full code Patient's care and plan discussed with my attending Dr. Bud Gomez, PGY-1 Disclaimer: Even though this this note was dictated by speech recognition and even though it was carefully revised there may still be minor errors in content publisher due to voice recognition software. Attending Provider Attestation/Addendum I attest that I was physically present for the evaluation, physical examination, lab and imaging review of the patient with the residents. I discussed the case with the residents and agree with the findings and plans of care as documented above. Patient appears comfortable at bedside. Denies any new complaints resting well on room air. Awaiting health department recommendations. José Miguel Farrell MD
[2025-03-08 11:56] VITALS: BP 109/66; PULSE 84; RESP 18; TEMP 36; O2SAT 97
[2025-03-08 15:35] VITALS: BP 112/65; PULSE 88; RESP 18; TEMP 36.8; O2SAT 98
[2025-03-08 22:00] VITALS: BP 107/57; PULSE 91; RESP 18; TEMP 36.7; O2SAT 98
[2025-03-09 06:00] VITALS: BP 100/57; PULSE 75; RESP 18; TEMP 36.1; O2SAT 95
[2025-03-09 06:57] LABS: Basophils # (Auto) 0.1 Thou/mm3 (0.0-0.2); Basophils % (Auto) 1 % (0-2.5); Eosinophils # (Auto) 0.9 Thou/mm3 (0.0-0.5); Eosinophils % (Auto) 8 % (0-10); Hematocrit 42.2 % (41.0-53.0); Hemoglobin 13.3 g/dL (13.5-16.0); Immature Granulocytes % (Auto) 1 % (0-0); Immature Granulocytes Auto 0.08 Thou/mm3 (0.00-0.00); Lymphocytes # (Auto) 2.8 Thou/mm3 (1.0-4.8); Lymphocytes % (Auto) 23 % (10-50); Mean Corpuscular HGB Conc 31.5 g/dl (31.0-37.0); Mean Corpuscular Volume 80 fL (80-100); Monocytes # (Auto) 1.1 Thou/mm3 (0.0-0.8); Monocytes % (Auto) 9 % (0-12); Neutrophils # (Auto) 7.1 Thou/mm3 (1.8-7.7); Neutrophils % (Auto) 59 % (37-80); Nucleated Red Blood Cell % 0 /100 WBC (0); Platelet Count 760 Thou/mm3 (140-440); Red Blood Count 5.31 Miln/mm3 (4.50-5.90); White Blood Count 12.1 Thou/mm3 (3.8-10.6)
[2025-03-09 06:59] LABS: Alanine Aminotransferase 41 U/L (10-49); Albumin, Serum 4.1 gm/dL (3.5-5.0); Albumin/Globulin Ratio 1.2 (1.2-2.2); Alkaline Phosphatase 75 U/L (46-116); Anion Gap 8 (7-16); Aspartate Amino Transferase 36 U/L (0-34); BUN/Creatinine Ratio 13 Ratio (12-20); Bilirubin,Total 0.2 mg/dL (0.3-1.2); Blood Urea Nitrogen 12 mg/dL (9-23); Calcium 9.3 mg/dL (8.3-10.6); Calcium (Corrected) 9.3 mg/dL (8.5-10.1); Carbon Dioxide 31.7 mMol/L (20.0-31.0); Chloride 100 mMol/L (98-107); Creatinine (Component) 0.9 mg/dL (0.6-1.3); Estimated Creatinine Clearance 113.2 mL/min (>60); Globulin 3.4 gm/dL (2.3-3.5); Glucose 101 mg/dL (74-106); Osmolality,Calculated 279 (275-295); Potassium 4.8 mMol/L (3.4-5.1); Sodium 140 mMol/L (136-145); Total Protein 7.5 gm/dL (5.7-8.2); eGFR > 60 See Note
[2025-03-09] MEDS: ENOXAPARIN SOD INJ 40 MG/0.4 ML SYRINGE SC (08:30)
[2025-03-09] MEDS: PYRAZINAMIDE 500 MG TABLET 1500 MG PO (08:30)
[2025-03-09] MEDS: ISONIAZID 300 MG TABLET PO (08:30)
[2025-03-09] MEDS: rifAMPin 300 MG CAPSULE 600 MG PO (08:30)
[2025-03-09] MEDS: PYRIDOXINE 50 MG TABLET PO (08:31)
[2025-03-09] MEDS: ETHAMBUTOL HCL 400 MG TABLET 1200 MG PO (09:00)
--- NOTE | 2025-03-09 10:09 | ESPR_ITS ---
Documentation for date of: 03/09/25 Subjective Subjective Interval history: Patient was seen and examined at bedside this morning. No acute overnight events. Patient's labs drawn today that show WBC continues to downtrend and some thrombocytosis which has been stable and these are more likely in the setting of infection. Otherwise CMP looks fairly unremarkable. No other complaints at this time. Will continue current management. Exam Vital Signs Temp Pulse Resp BP Pulse Ox O2 Del Method 97.0 F 75 18 100/57 L 95 Room Air 03/09/25 06:00 03/09/25 06:00 03/09/25 06:00 03/09/25 06:00 03/09/25 06:00 03/09/25 06:00 Narrative Exam General: A/O x3, no acute distress, well-nourished, well-developed Eyes: PERRL, EOMI. Anicteric, vision grossly intact. Ears: No ear pain, no ear discharge, Hearing grossly intact. Nose: No nasal discharge. Mouth/Throat: Moist mucous membranes, no redness, no lesions. Neck: Neck supple, non-tender, no cervical lymphadenopathy. Lungs: Clear АНДРЕЙ to auscultation and percussion, No accessory muscle use. Cardio: Normal S1/S2, regular rhythm, tachycardic, no murmurs, no JVD Abdomen: Soft, non-tender, no palpable masses, peristalsis present, no guarding or rebound. Extremities: Symmetrical, no significant deformities, no peripheral edema , non-tender, peripheral pulses presents. Skin: No rashes, no lesions, warm to touch. Neuro: No focal neurological deficits. motor and sensory intact Psych: Cooperative, appropriate mood and effect Objective Labs 03/09/25 06:00 03/09/25 06:00 Labs: Laboratory Results - last 24 hr 03/09/25 06:00 WBC 12.1 H RBC 5.31 Hgb 13.3 L Hct 42.2 MCV 80 MCH 25.0 MCHC 31.5 RDW Std Deviation 44.0 H Plt Count 760 H Neut % (Auto) 59 Lymph % (Auto) 23 Forrest % (Auto) 9 Eos % (Auto) 8 Baso % (Auto) 1 Neut # (Auto) 7.1 Lymph # (Auto) 2.8 Forrest # (Auto) 1.1 H Eos # (Auto) 0.9 H Baso # (Auto) 0.1 Immature Gran # (Auto) 0.08 H Absolute Nucleated RBC 0.00 Immature Gran % 1 H Nucleated RBC % 0 Sodium 140 Potassium 4.8 Chloride 100 Carbon Dioxide 31.7 H Anion Gap 8 BUN 12 Creatinine 0.9 Estim Creat Clear Calc 113.2 eGFR > 60 BUN/Creatinine Ratio 13 Glucose 101 Calculated Osmolality 279 Calcium 9.3 Corrected Calcium 9.3 Magnesium 2.0 Total Bilirubin 0.2 L AST 36 H ALT 41 Alkaline Phosphatase 75 Total Protein 7.5 Albumin 4.1 Globulin 3.4 Albumin/Globulin Ratio 1.2 Quality Measures Quality Measures none Assessment & Plan Assessment Current Active Medications: Generic Name Dose Route Start Last Admin Trade Name Freq PRN Reason Stop Dose Admin Acetaminophen 650 mg 02/25/25 18:32 02/25/25 18:57 Acetaminophen 325 Mg Tablet PO 03/27/25 18:31 650 mg Q6H PRN Administration pain 1-3 and Fever >100.4 Enoxaparin Sodium 40 mg 02/26/25 09:00 03/09/25 08:30 Enoxaparin Sod Inj 40 Mg/0.4 Ml Syringe SC 03/12/25 08:59 40 mg QDAY YUMIKO Administration Ethambutol HCl 1,200 mg 03/05/25 09:00 03/09/25 09:00 Ethambutol Hcl 400 Mg Tablet PO 04/04/25 08:59 1,200 mg QDAY YUMIKO Administration Isoniazid 300 mg 02/27/25 15:30 03/09/25 08:30 Isoniazid 300 Mg Tablet PO 03/29/25 15:29 300 mg QDAY YUMIKO Administration Ondansetron HCl 4 mg 02/25/25 18:32 Ondansetron Inj 2 Mg/Ml Inj 2 Ml IV 03/27/25 18:31 Q6H PRN NAUSEA OR VOMITING Protocol Pyrazinamide 1,500 mg 03/05/25 09:00 03/09/25 08:30 Pyrazinamide 500 Mg Tablet PO 04/04/25 08:59 1,500 mg QDAY YUMIKO Administration Pyridoxine HCl 50 mg 03/02/25 09:00 03/09/25 08:31 Pyridoxine 50 Mg Tablet PO 03/02/26 12:00 50 mg QDAY YUMIKO Administration Rifampin 600 mg 03/05/25 09:00 03/09/25 08:30 Rifampin 300 Mg Capsule PO 04/04/25 08:59 600 mg QDAY YUMIKO Administration Plan 24-year-old male with no relevant past medical history was admitted to the hospital 02/25/2025 for TB rule out in the setting of cavitary lesions on imaging. #Active Tuberculosis #Bilateral cavitary lesions #Shortness of breath, resolved #Cough, improving #Sore throat, resolved #Leukocytosis Patient came in with complaints of some shortness of breath along with cough and sore throat for the past 5 months. Patient denied any night sweats or hemoptysis. Patient's chest CT that showed severe cavitary disease in both lungs and chest x-ray also showed cavitary lesions in both lungs. Patient states that he has not had any sick contacts. Patient does not recall having any prior pulmonary issues in the past when he was a child. Patient's WBCs were 18.2 initially, downtrending with no fevers Cocci negative Discussed with pulmonology given cavitary lesions and stated could be Cocci and to repeat Cocci on Sunday if it was negative and to covert for MRSA PNA and get autoimmune workup as well as echo for endocarditis. Blood culture negative and sputum mixed oral [employer]'s positive pending sensitivity and quantiferon negative Discontinued azithromycin and Rocephin (02/25/2025?02/27/2025), Vancomycin (02/26/2025-02/27/2025) and Fluconazole (02/26/2025-03/01/2025) Plan: RIPE (02/27/2025-) -Isoniazid 300mgQD -Ethambutol 1200mg QD -Pyrazinamide 1500mg QD -Rifampin 600mg QD Pyridoxine 50 mg daily Isolation and airborne precautions ID consulted, appreciate recommendations #Thrombocytosis Patient's platelets were 828 initially Most likely hemoconcentration as patient did appear to be a little bit dehydrated. Plan: Will continue to monitor Disposition: Pending Health department. TB positive Diet: regular GI prophylaxis: not indicated DVT prophylaxis: lovenox Code:Full code Patient's care and plan discussed with my attending Dr. Bud Gomez, PGY-1 Disclaimer: Even though this this note was dictated by speech recognition and even though it was carefully revised there may still be minor errors in medical insurance coder due to voice recognition software. Attending Provider Attestation/Addendum I attest that I was physically present for the evaluation, physical examination, lab and imaging review of the patient with the residents. I discussed the case with the residents and agree with the findings and plans of care as documented above. At bedside today, patient states she is feeling well. Denies shortness of breath, chest pain or cough. WBC count improved compared to last week, 12.1 today. Awaiting health department recommendation regarding discontinuation of isolation. José Miguel Farrell MD
[2025-03-09 14:00] VITALS: BP 118/69; PULSE 90; RESP 17; TEMP 36.9; O2SAT 99
--- NOTE | 2025-03-09 14:42 | PC.SS ---
Rounding: Pending [facility] Dept clearance
[2025-03-09 22:00] VITALS: BP 129/74; PULSE 98; RESP 17; TEMP 36.9; O2SAT 98
[2025-03-10 06:00] VITALS: BP 114/67; PULSE 80; RESP 18; TEMP 36.6; O2SAT 98
[2025-03-10 07:05] LABS: ANA Pattern NUCLEAR, HOMOGENEOUS; ANA Screen, IFA POSITIVE (NEGATIVE); Myeloperoxidase Ab <1.0 AI (<1.0); Proteinase-3 Ab <1.0 AI (<1.0)
[2025-03-10] MEDS: rifAMPin 300 MG CAPSULE 600 MG PO (08:17)
[2025-03-10] MEDS: ENOXAPARIN SOD INJ 40 MG/0.4 ML SYRINGE SC (08:17)
[2025-03-10] MEDS: ETHAMBUTOL HCL 400 MG TABLET 1200 MG PO (08:17)
[2025-03-10] MEDS: PYRIDOXINE 50 MG TABLET PO (08:17)
[2025-03-10] MEDS: PYRAZINAMIDE 500 MG TABLET 1500 MG PO (08:18)
--- NOTE | 2025-03-10 10:13 | PC.RT ---
sputum sample for new afb series collected by nursing, sent to lab.
[2025-03-10 10:21] LABS: Cult AFB Sendout- Sputum* See Sep Rpt
[2025-03-10] MEDS: ISONIAZID 300 MG TABLET PO (11:10)
--- NOTE | 2025-03-10 11:30 | PC.SS ---
SS follow up note; [facility] will [facility] when medically cleared.
--- NOTE | 2025-03-10 11:51 | ESPR_ITS ---
<Statement entered by Yomaira Wasserman MD - 03/11/25 07:57> 24-year-old male who presented to the ER on 02/25/2025 found to have cavitary lesion with workup significant for active TB on ripe therapy. Plan to continue ripe therapy gram daily, isoniazid 300 mg daily, pyrazinamide 1500 mg daily, ethambutol 1200 mg daily) in addition to pyridoxine 50 mg daily. Plan to continue monitoring AFBs and once negative will discharge patient on ripe therapy.I reviewed above note and agree with findings and plans. I have also personally examined the patient with medicine team and went over assessment and plan with medical team including internal investigator and resident physician. Documentation for date of: 03/10/25 Subjective Subjective Interval history: Patient was seen examined at bedside's morning. No acute overnight events. We are still pending health department to assess the patient as current condition for possible disposition and this was explained to the patient. Repeated AFB for possible DC after these are sent if Health department states its okay to discharge home. No other complaints at this time. Exam Vital Signs Temp Pulse Resp BP Pulse Ox O2 Del Method 97.8 F 80 18 114/67 98 Room Air 03/10/25 06:00 03/10/25 06:00 03/10/25 06:00 03/10/25 06:00 03/10/25 06:00 03/10/25 06:00 Narrative Exam General: A/O x3, no acute distress, well-nourished, well-developed Eyes: PERRL, EOMI. Anicteric, vision grossly intact. Ears: No ear pain, no ear discharge, Hearing grossly intact. Nose: No nasal discharge. Mouth/Throat: Moist mucous membranes, no redness, no lesions. Neck: Neck supple, non-tender, no cervical lymphadenopathy. Lungs: Clear АНДРЕЙ to auscultation and percussion, No accessory muscle use. Cardio: Normal S1/S2, regular rhythm, tachycardic, no murmurs, no JVD Abdomen: Soft, non-tender, no palpable masses, peristalsis present, no guarding or rebound. Extremities: Symmetrical, no significant deformities, no peripheral edema , non-tender, peripheral pulses presents. Skin: No rashes, no lesions, warm to touch. Neuro: No focal neurological deficits. motor and sensory intact Psych: Cooperative, appropriate mood and effect Objective Labs 03/09/25 06:00 03/09/25 06:00 Labs: Laboratory Results - last 24 hr 02/27/25 05:23 KELLE Screen POSITIVE A KELLE Titer 1:80 H KELLE Titer 2 1:80 H KELLE Titer 3 TNP KELLE Pattern KELLE Pattern 2 NUCLEAR, HOMOGENEOUS KELLE Pattern 3 TNP ANCA Screen SEE NOTE c-ANCA Titer TNP Anti-Proteinase 3 <1.0 p-ANCA Titer TNP Atypical p-ANCA Titer TNP Anti-Myeloperoxidase <1.0 Quality Measures Quality Measures none Assessment & Plan Assessment Current Active Medications: Generic Name Dose Route Start Last Admin Trade Name Freq PRN Reason Stop Dose Admin Acetaminophen 650 mg 02/25/25 18:32 02/25/25 18:57 Acetaminophen 325 Mg Tablet PO 03/27/25 18:31 650 mg Q6H PRN Administration pain 1-3 and Fever >100.4 Enoxaparin Sodium 40 mg 02/26/25 09:00 03/10/25 08:17 Enoxaparin Sod Inj 40 Mg/0.4 Ml Syringe SC 03/12/25 08:59 40 mg QDAY YUMIKO Administration Ethambutol HCl 1,200 mg 03/05/25 09:00 03/10/25 08:17 Ethambutol Hcl 400 Mg Tablet PO 04/04/25 08:59 1,200 mg QDAY YUMIKO Administration Isoniazid 300 mg 03/10/25 11:00 03/10/25 11:10 Isoniazid 300 Mg Tablet PO 04/09/25 10:59 300 mg ACBR YUMIKO Administration Ondansetron HCl 4 mg 02/25/25 18:32 Ondansetron Inj 2 Mg/Ml Inj 2 Ml IV 03/27/25 18:31 Q6H PRN NAUSEA OR VOMITING Protocol Pyrazinamide 1,500 mg 03/05/25 09:00 03/10/25 08:18 Pyrazinamide 500 Mg Tablet PO 04/04/25 08:59 1,500 mg QDAY YUMIKO Administration Pyridoxine HCl 50 mg 03/02/25 09:00 03/10/25 08:17 Pyridoxine 50 Mg Tablet PO 03/02/26 12:00 50 mg QDAY YUMIKO Administration Rifampin 600 mg 03/05/25 09:00 03/10/25 08:17 Rifampin 300 Mg Capsule PO 04/04/25 08:59 600 mg QDAY YUMIKO Administration Plan 24-year-old male with no relevant past medical history was admitted to the hospital 02/25/2025 for TB rule out in the setting of cavitary lesions on imaging. #Active Tuberculosis #Bilateral cavitary lesions #Shortness of breath, resolved #Cough, improving #Sore throat, resolved #Leukocytosis Patient came in with complaints of some shortness of breath along with cough and sore throat for the past 5 months. Patient denied any night sweats or hemoptysis. Patient's chest CT that showed severe cavitary disease in both lungs and chest x-ray also showed cavitary lesions in both lungs. Patient states that he has not had any sick contacts. Patient does not recall having any prior pulmonary issues in the past when he was a child. Patient's WBCs were 18.2 initially, downtrending with no fevers Cocci negative Discussed with pulmonology given cavitary lesions and stated could be Cocci and to repeat Cocci on Sunday if it was negative and to covert for MRSA PNA and get autoimmune workup as well as echo for endocarditis. Blood culture negative and sputum mixed oral [employer]'s positive pending sensitivity and quantiferon negative Discontinued azithromycin and Rocephin (02/25/2025?02/27/2025), Vancomycin (02/26/2025-02/27/2025) and Fluconazole (02/26/2025-03/01/2025) Plan: Ordered repeat AFB RIPE (02/27/2025-) -Isoniazid 300mgQD -Ethambutol 1200mg QD -Pyrazinamide 1500mg QD -Rifampin 600mg QD Pyridoxine 50 mg daily Isolation and airborne precautions ID consulted, appreciate recommendations #Thrombocytosis Patient's platelets were 828 initially Most likely hemoconcentration as patient did appear to be a little bit dehydrated. Plan: Will continue to monitor Disposition: Pending repeat AFB. Diet: regular GI prophylaxis: not indicated DVT prophylaxis: lovenox Code:Full code Patient's care and plan discussed with my attending Dr. tu Gomez, PGY-1 Disclaimer: Even though this this note was dictated by speech recognition and even though it was carefully revised there may still be minor errors in certified medical transcriptionist due to voice recognition software.
[2025-03-10 14:00] VITALS: BP 106/93; PULSE 91; RESP 18; TEMP 36.2; O2SAT 94
[2025-03-10 16:46] LABS: Cult AFB Sendout- Sputum* See Sep Rpt
[2025-03-10 18:59] LABS: Cult AFB Sendout- Sputum* See Sep Rpt
[2025-03-10 22:00] VITALS: BP 124/66; PULSE 100; RESP 18; TEMP 37.2; O2SAT 96
[2025-03-11] MEDS: SODIUM CHLORIDE RT 10% 15 ML NEBU 5 ML INH (02:55)
[2025-03-11] MEDS: ISONIAZID 300 MG TABLET PO (05:45)
[2025-03-11 06:00] VITALS: BP 97/59; PULSE 97; RESP 20; TEMP 36.6; O2SAT 99
[2025-03-11] MEDS: ENOXAPARIN SOD INJ 40 MG/0.4 ML SYRINGE SC (08:29)
[2025-03-11] MEDS: ETHAMBUTOL HCL 400 MG TABLET 1200 MG PO (08:30)
[2025-03-11] MEDS: PYRAZINAMIDE 500 MG TABLET 1500 MG PO (08:30)
[2025-03-11] MEDS: PYRIDOXINE 50 MG TABLET PO (08:30)
[2025-03-11] MEDS: rifAMPin 300 MG CAPSULE 600 MG PO (08:31)
--- NOTE | 2025-03-11 11:41 | ESPR_ITS ---
<Statement entered by Yomaira Wasserman MD - 03/16/25 14:41> I reviewed above note and agree with findings and plans. I have also personally examined the patient with medicine team and went over assessment and plan with medical team including recruiting internship and resident physician. Documentation for date of: 03/11/25 Subjective Subjective Interval history: Overnight, no acute events reported. Patient denies any complaints at this time. Patient is currently on ripe therapy. Pending public health department recommendations for dispo plan. Patient will also have to follow-up outpatient with the [facility] for compliance with medications. Patient agrees with current course of plan, and is eager to go home. Patient has had 3 repeat AFB samples that have been sent to [facility]. Exam Vital Signs Temp Pulse Resp BP Pulse Ox O2 Del Method 98 F 97 20 97/59 L 99 Room Air 03/11/25 06:00 03/11/25 06:00 03/11/25 06:00 03/11/25 06:00 03/11/25 06:00 03/11/25 06:00 Narrative Exam General Appearance: Pt in NAD laying comfortably in bed. HEENT: NC/AT, no scleral icterus, no conjunctival pallor, MMM Lungs: CTAB, no wheezes or crackles appreciated CVS: RRR, S1/S2 heard, no murmurs or rubs appreciated ABD: Soft, non-tender, non-distended, BS + in all 4 quadrants EXT: no deformity/edema/lesions/cyanosis/clubbing, radial pulses 2+ BL, DP pulses 2 + BL SKIN: Skin exam normal without any rashes. Neuro: A&O x 3. No gross neurological deficits. Motor and sensory grossly intact in B/L UL and LL. Psych: Appropriate mood and affect Objective Labs 03/09/25 06:00 03/09/25 06:00 Quality Measures Quality Measures none Assessment & Plan Assessment Current Active Medications: Generic Name Dose Route Start Last Admin Trade Name Freq PRN Reason Stop Dose Admin Acetaminophen 650 mg 02/25/25 18:32 02/25/25 18:57 Acetaminophen 325 Mg Tablet PO 03/27/25 18:31 650 mg Q6H PRN Administration pain 1-3 and Fever >100.4 Enoxaparin Sodium 40 mg 02/26/25 09:00 03/11/25 08:29 Enoxaparin Sod Inj 40 Mg/0.4 Ml Syringe SC 03/12/25 08:59 40 mg QDAY YUMIKO Administration Ethambutol HCl 1,200 mg 03/05/25 09:00 03/11/25 08:30 Ethambutol Hcl 400 Mg Tablet PO 04/04/25 08:59 1,200 mg QDAY YUMIKO Administration Isoniazid 300 mg 03/10/25 11:00 03/11/25 05:45 Isoniazid 300 Mg Tablet PO 04/09/25 10:59 300 mg ACBR YUMIKO Administration Ondansetron HCl 4 mg 02/25/25 18:32 Ondansetron Inj 2 Mg/Ml Inj 2 Ml IV 03/27/25 18:31 Q6H PRN NAUSEA OR VOMITING Protocol Pyrazinamide 1,500 mg 03/05/25 09:00 03/11/25 08:30 Pyrazinamide 500 Mg Tablet PO 04/04/25 08:59 1,500 mg QDAY YUMIKO Administration Pyridoxine HCl 50 mg 03/02/25 09:00 03/11/25 08:30 Pyridoxine 50 Mg Tablet PO 03/02/26 12:00 50 mg QDAY YUMIKO Administration Rifampin 600 mg 03/05/25 09:00 03/11/25 08:31 Rifampin 300 Mg Capsule PO 04/04/25 08:59 600 mg QDAY YUMIKO Administration Plan 24-year-old male with no relevant past medical history was admitted to the hospital 02/25/2025 for TB rule out in the setting of cavitary lesions on imaging. #Active Tuberculosis #Bilateral cavitary lesions #Shortness of breath, resolved #Cough, improving #Sore throat, resolved #Leukocytosis Patient came in with complaints of some shortness of breath along with cough and sore throat for the past 5 months. Patient denied any night sweats or hemoptysis. Patient's chest CT that showed severe cavitary disease in both lungs and chest x-ray also showed cavitary lesions in both lungs. Patient states that he has not had any sick contacts. Patient does not recall having any prior pulmonary issues in the past when he was a child. Patient's WBCs were 18.2 initially, downtrending with no fevers Cocci negative Discussed with pulmonology given cavitary lesions and stated could be Cocci and to repeat Cocci on Sunday if it was negative and to covert for MRSA PNA and get autoimmune workup as well as echo for endocarditis. Blood culture negative and sputum mixed oral ashley AFB's positive pending sensitivity and quantiferon negative Discontinued azithromycin and Rocephin (02/25/2025?02/27/2025), Vancomycin (02/26/2025-02/27/2025) and Fluconazole (02/26/2025-03/01/2025) Plan: Ordered repeat AFB RIPE (02/27/2025-) -Isoniazid 300mgQD -Ethambutol 1200mg QD -Pyrazinamide 1500mg QD -Rifampin 600mg QD Pyridoxine 50 mg daily Isolation and airborne precautions ID consulted, appreciate recommendations #Thrombocytosis Patient's platelets were 828 initially Most likely hemoconcentration as patient did appear to be a little bit dehydrated. Plan: Will continue to monitor Disposition: AFB samples x 3 have been sent, pending public health department recommendations for dispo plan Diet: regular GI prophylaxis: not indicated DVT prophylaxis: lovenox Code:Full code Patient's plan and care discussed with my attending, Dr. Lisy Reynoso MD PGY-2
--- NOTE | 2025-03-11 13:27 | PD.IDPROG ---
Subjective Subjective Interval history: on rx. likely best to recheck sputums this weekend by induction. Exam Vital Signs Temp Pulse Resp BP Pulse Ox O2 Del Method 98 F 97 20 97/59 L 99 Room Air 03/11/25 06:00 03/11/25 06:00 03/11/25 06:00 03/11/25 06:00 03/11/25 06:00 03/11/25 06:00 Narrative Exam limited visit. Objective - Internal Medicine Labs 03/09/25 06:00 03/09/25 06:00 Assessment & Plan A&P Narrative cavitary lung disease on chest imaging. qtf and afb's pos by phone from health dept on sunday. with pos mtb naat noted. limited pmh he is not coughing, so you may have lots of trouble getting sputums. testing of contacts is at the discretion of health dept. try to wait about 2 weeks to repeat the sputums as it usually takes that long to clear sputum cx at minimum, if no coughing, even with induction, document that and let health dept decide on isolation will check in on sunday weekly cbc, cmp ok. but if you insist on more often. that is a choice Time Spent With Patient Time: Total time spent is greater than 50% in coordination of care (as documented) at patient's floor/unit and/or counseling patient:
[2025-03-11 14:00] VITALS: BP 99/72; PULSE 92; RESP 19; TEMP 36.1; O2SAT 98
--- NOTE | 2025-03-11 14:51 | PC.SS ---
Rounding note: pending public health clearance, anticipate d/c back home in 1-2 days.
[2025-03-11 22:00] VITALS: BP 129/63; PULSE 75; RESP 16; TEMP 37.1; O2SAT 98
[2025-03-12] MEDS: ISONIAZID 300 MG TABLET PO (05:18)
[2025-03-12 06:00] VITALS: BP 129/63; PULSE 75; RESP 16; TEMP 37.1; O2SAT 98
[2025-03-12 09:02] LABS: HIV (1&2) Antibody Rapid Non-Reactive
[2025-03-12] MEDS: rifAMPin 300 MG CAPSULE 600 MG PO (09:28)
[2025-03-12] MEDS: PYRIDOXINE 50 MG TABLET PO (09:28)
[2025-03-12] MEDS: PYRAZINAMIDE 500 MG TABLET 1500 MG PO (09:28)
[2025-03-12] MEDS: ETHAMBUTOL HCL 400 MG TABLET 1200 MG PO (09:29)
[2025-03-12 14:00] VITALS: BP 105/70; PULSE 85; RESP 18; TEMP 36.6; O2SAT 99
--- NOTE | 2025-03-12 14:03 | ESPR_ITS ---
<Statement entered by Yomaira Wasserman MD - 03/18/25 15:43> I reviewed above note and agree with findings and plans. I have also personally examined the patient with medicine team and went over assessment and plan with medical team including pharmacy grad intern and resident physician. Documentation for date of: 03/12/25 Subjective Subjective Interval history: Overnight, no acute events reported. Patient denies any complaints at this time. Patient is currently waiting [facility] approval for safe discharge plan. Will reach out to infection control team tomorrow in regards to status. Otherwise, patient is currently stable, and HIV antibody rapid came back negative. Vital signs are stable. Patient will continue to be on ripe therapy. All questions asked and answered. Exam Vital Signs Temp Pulse Resp BP Pulse Ox O2 Del Method 98.7 F 75 16 129/63 98 Room Air 03/12/25 06:00 03/12/25 06:00 03/12/25 06:00 03/12/25 06:00 03/12/25 06:00 03/12/25 06:00 Narrative Exam General Appearance: Pt in NAD laying comfortably in bed. HEENT: NC/AT, no scleral icterus, no conjunctival pallor, MMM Lungs: CTAB, no wheezes or crackles appreciated CVS: RRR, S1/S2 heard, no murmurs or rubs appreciated ABD: Soft, non-tender, non-distended, BS + in all 4 quadrants EXT: no deformity/edema/lesions/cyanosis/clubbing, radial pulses 2+ BL, DP pulses 2 + BL SKIN: Skin exam normal without any rashes. Neuro: A&O x 3. No gross neurological deficits. Motor and sensory grossly intact in B/L UL and LL. Psych: Appropriate mood and affect Objective Labs 03/09/25 06:00 03/09/25 06:00 Labs: Laboratory Results - last 24 hr 03/10/25 03/12/25 10:10 05:24 HIV 1&2 Antibody Rapid Non-Reactive Mycobacterial Culture See Sep Rpt Quality Measures Quality Measures none Assessment & Plan Assessment Current Active Medications: Generic Name Dose Route Start Last Admin Trade Name Freq PRN Reason Stop Dose Admin Acetaminophen 650 mg 02/25/25 18:32 02/25/25 18:57 Acetaminophen 325 Mg Tablet PO 03/27/25 18:31 650 mg Q6H PRN Administration pain 1-3 and Fever >100.4 Ethambutol HCl 1,200 mg 03/05/25 09:00 03/12/25 09:29 Ethambutol Hcl 400 Mg Tablet PO 04/04/25 08:59 1,200 mg QDAY YUMIKO Administration Isoniazid 300 mg 03/10/25 11:00 03/12/25 05:18 Isoniazid 300 Mg Tablet PO 04/09/25 10:59 300 mg ACBR YUMIKO Administration Ondansetron HCl 4 mg 02/25/25 18:32 Ondansetron Inj 2 Mg/Ml Inj 2 Ml IV 03/27/25 18:31 Q6H PRN NAUSEA OR VOMITING Protocol Pyrazinamide 1,500 mg 03/05/25 09:00 03/12/25 09:28 Pyrazinamide 500 Mg Tablet PO 04/04/25 08:59 1,500 mg QDAY YUMIKO Administration Pyridoxine HCl 50 mg 03/02/25 09:00 03/12/25 09:28 Pyridoxine 50 Mg Tablet PO 03/02/26 12:00 50 mg QDAY YUMIKO Administration Rifampin 600 mg 03/05/25 09:00 03/12/25 09:28 Rifampin 300 Mg Capsule PO 04/04/25 08:59 600 mg QDAY YUMIKO Administration Plan 24-year-old male with no relevant past medical history was admitted to the hospital 02/25/2025 for TB rule out in the setting of cavitary lesions on imaging. #Active Tuberculosis #Bilateral cavitary lesions #Shortness of breath, resolved #Cough, improving #Sore throat, resolved #Leukocytosis Patient came in with complaints of some shortness of breath along with cough and sore throat for the past 5 months. Patient denied any night sweats or hemoptysis. Patient's chest CT that showed severe cavitary disease in both lungs and chest x-ray also showed cavitary lesions in both lungs. Patient states that he has not had any sick contacts. Patient does not recall having any prior pulmonary issues in the past when he was a child. Patient's WBCs were 18.2 initially, downtrending with no fevers Cocci negative Discussed with pulmonology given cavitary lesions and stated could be Cocci and to repeat Cocci on Sunday if it was negative and to covert for MRSA PNA and get autoimmune workup as well as echo for endocarditis. Blood culture negative and sputum mixed oral ashley AFB's positive pending sensitivity and quantiferon negative Discontinued azithromycin and Rocephin (02/25/2025?02/27/2025), Vancomycin (02/26/2025-02/27/2025) and Fluconazole (02/26/2025-03/01/2025) Plan: Ordered repeat AFB RIPE (02/27/2025-) -Isoniazid 300mgQD -Ethambutol 1200mg QD -Pyrazinamide 1500mg QD -Rifampin 600mg QD Pyridoxine 50 mg daily Isolation and airborne precautions ID consulted, appreciate recommendations #Thrombocytosis Patient's platelets were 828 initially Most likely hemoconcentration as patient did appear to be a little bit dehydrated. Plan: Will continue to monitor Disposition: AFB samples x 3 have been sent, pending public health department recommendations for dispo plan Diet: regular GI prophylaxis: not indicated DVT prophylaxis: lovenox Code:Full code Patient's plan and care discussed with my attending, Dr. Lisy Reynoso MD PGY-2
[2025-03-12 14:35] VITALS: BMI 25.0
[2025-03-13] MEDS: ISONIAZID 300 MG TABLET PO (05:23)
[2025-03-13 06:00] VITALS: BP 103/60; PULSE 75; RESP 18; TEMP 36.1; O2SAT 97
[2025-03-13 08:00] VITALS: BP 112/71; PULSE 82; RESP 18; TEMP 36.2; O2SAT 97
[2025-03-13] MEDS: ETHAMBUTOL HCL 400 MG TABLET 1200 MG PO (09:11)
[2025-03-13] MEDS: PYRIDOXINE 50 MG TABLET PO (09:11)
[2025-03-13] MEDS: rifAMPin 300 MG CAPSULE 600 MG PO (09:11)
[2025-03-13] MEDS: PYRAZINAMIDE 500 MG TABLET 1500 MG PO (09:11)
--- NOTE | 2025-03-13 09:17 | PC.IP ---
Pt.'s sputum AFB's from 03/10/2025 are positive. According to [facility], the patient cannot be discharge at this time as his living situation cannot be confirmed due to conflicting information provided by the patient. Dr. Mcallitser was made aware of current situation. Recommended to obtain 3 more sputum on 03/16/2025 to r/o TB .
--- NOTE | 2025-03-13 11:44 | ESPR_ITS ---
<Statement entered by Yomaira Wasserman MD - 03/18/25 15:44> I reviewed above note and agree with findings and plans. I have also personally examined the patient with medicine team and went over assessment and plan with medical team including administration internship and resident physician. Documentation for date of: 03/13/25 Subjective Subjective Interval history: Patient was seen and examined at bedside this morning. No acute overnight events. Patient's repeat AFBs came back positive on 03/12/2025. Also discussed with infectious disease that [facility] have sent documentation to the physician in charge of the patient's case for disposition, but patient has been giving there for information about his housing therefore this could create a barrier to discharging him home. Has not had a cough or SOB. No other complaints at this time. Exam Vital Signs Temp Pulse Resp BP Pulse Ox O2 Del Method 97.1 F 82 18 112/71 97 Room Air 03/13/25 08:00 03/13/25 08:00 03/13/25 08:00 03/13/25 08:00 03/13/25 08:00 03/13/25 08:00 Narrative Exam General: A/O x3, no acute distress, well-nourished, well-developed Eyes: PERRL, EOMI. Anicteric, vision grossly intact. Ears: No ear pain, no ear discharge, Hearing grossly intact. Nose: No nasal discharge. Mouth/Throat: Moist mucous membranes, no redness, no lesions. Neck: Neck supple, non-tender, no cervical lymphadenopathy. Lungs: Clear АНДРЕЙ to auscultation and percussion, No accessory muscle use. Cardio: Normal S1/S2, regular rhythm, tachycardic, no murmurs, no JVD Abdomen: Soft, non-tender, no palpable masses, peristalsis present, no guarding or rebound. Extremities: Symmetrical, no significant deformities, no peripheral edema , non-tender, peripheral pulses presents. Skin: No rashes, no lesions, warm to touch. Neuro: No focal neurological deficits. motor and sensory intact Psych: Cooperative, appropriate mood and effect Objective Labs 03/09/25 06:00 03/09/25 06:00 Quality Measures Quality Measures none Assessment & Plan Assessment Current Active Medications: Generic Name Dose Route Start Last Admin Trade Name Freq PRN Reason Stop Dose Admin Acetaminophen 650 mg 02/25/25 18:32 02/25/25 18:57 Acetaminophen 325 Mg Tablet PO 03/27/25 18:31 650 mg Q6H PRN Administration pain 1-3 and Fever >100.4 Ethambutol HCl 1,200 mg 03/05/25 09:00 03/13/25 09:11 Ethambutol Hcl 400 Mg Tablet PO 04/04/25 08:59 1,200 mg QDAY YUMIKO Administration Isoniazid 300 mg 03/10/25 11:00 03/13/25 05:23 Isoniazid 300 Mg Tablet PO 04/09/25 10:59 300 mg ACBR YUMIKO Administration Ondansetron HCl 4 mg 02/25/25 18:32 Ondansetron Inj 2 Mg/Ml Inj 2 Ml IV 03/27/25 18:31 Q6H PRN NAUSEA OR VOMITING Protocol Pyrazinamide 1,500 mg 03/05/25 09:00 03/13/25 09:11 Pyrazinamide 500 Mg Tablet PO 04/04/25 08:59 1,500 mg QDAY YUMIKO Administration Pyridoxine HCl 50 mg 03/02/25 09:00 03/13/25 09:11 Pyridoxine 50 Mg Tablet PO 03/02/26 12:00 50 mg QDAY YUMIKO Administration Rifampin 600 mg 03/05/25 09:00 03/13/25 09:11 Rifampin 300 Mg Capsule PO 04/04/25 08:59 600 mg QDAY YUMIKO Administration Plan 24-year-old male with no relevant past medical history was admitted to the hospital 02/25/2025 for TB rule out in the setting of cavitary lesions on imaging. #Active Tuberculosis #Bilateral cavitary lesions #Shortness of breath, resolved #Cough, improving #Sore throat, resolved #Leukocytosis Patient came in with complaints of some shortness of breath along with cough and sore throat for the past 5 months. Patient denied any night sweats or hemoptysis. Patient's chest CT that showed severe cavitary disease in both lungs and chest x-ray also showed cavitary lesions in both lungs. Patient states that he has not had any sick contacts. Patient does not recall having any prior pulmonary issues in the past when he was a child. Patient's WBCs were 18.2 initially, downtrending with no fevers Cocci negative Discussed with pulmonology given cavitary lesions and stated could be Cocci and to repeat Cocci on Sunday if it was negative and to covert for MRSA PNA and get autoimmune workup as well as echo for endocarditis. Blood culture negative and sputum mixed oral ashley AFB's positive on repeat AFBs Discontinued azithromycin and Rocephin (02/25/2025?02/27/2025), Vancomycin (02/26/2025-02/27/2025) and Fluconazole (02/26/2025-03/01/2025) Plan: Will order repeat AFB on Sunday03/16/2025 RIPE (02/27/2025-) -Isoniazid 300mgQD -Ethambutol 1200mg QD -Pyrazinamide 1500mg QD -Rifampin 600mg QD Pyridoxine 50 mg daily Isolation and airborne precautions ID consulted, appreciate recommendations #Thrombocytosis Patient's platelets were 828 initially Most likely hemoconcentration as patient did appear to be a little bit dehydrated. Plan: Will continue to monitor Disposition: Pending negative AFB. Diet: regular GI prophylaxis: not indicated DVT prophylaxis: lovenox Code:Full code Patient's care and plan discussed with my attending Dr. tu Gomez, PGY-1 Disclaimer: Even though this this note was dictated by speech recognition and even though it was carefully revised there may still be minor errors in account resolution specialist due to voice recognition software
[2025-03-13 14:00] VITALS: BP 110/73; PULSE 80; RESP 18; TEMP 36.3; O2SAT 98
--- NOTE | 2025-03-13 15:14 | PC.SS ---
Rounding: Pending new AFBS, DC plan home
[2025-03-13 22:00] VITALS: BP 105/66; PULSE 66; RESP 18; TEMP 36.4; O2SAT 97
[2025-03-14] MEDS: ISONIAZID 300 MG TABLET PO (05:43)
[2025-03-14 06:00] VITALS: BP 97/56; PULSE 88; RESP 16; TEMP 36.2; O2SAT 98
--- NOTE | 2025-03-14 07:50 | ESPR_ITS ---
<Statement entered by Yomaira Wasserman MD - 03/18/25 15:45> I reviewed above note and agree with findings and plans. I have also personally examined the patient with medicine team and went over assessment and plan with medical team including internet technology manager and resident physician. Documentation for date of: 03/14/25 Subjective Subjective Interval history: Patient was seen and examined at bedside this morning. No acute overnight events. Patient still has no cough and no spiking fevers overnight. Otherwise no new complaints. Exam Vital Signs Temp Pulse Resp BP Pulse Ox O2 Del Method 97.2 F 88 16 97/56 L 98 Room Air 03/14/25 06:00 03/14/25 06:00 03/14/25 06:00 03/14/25 06:00 03/14/25 06:00 03/14/25 06:00 Narrative Exam General: A/O x3, no acute distress, well-nourished, well-developed Eyes: PERRL, EOMI. Anicteric, vision grossly intact. Ears: No ear pain, no ear discharge, Hearing grossly intact. Nose: No nasal discharge. Mouth/Throat: Moist mucous membranes, no redness, no lesions. Neck: Neck supple, non-tender, no cervical lymphadenopathy. Lungs: Clear АНДРЕЙ to auscultation and percussion, No accessory muscle use. Cardio: Normal S1/S2, regular rhythm, tachycardic, no murmurs, no JVD Abdomen: Soft, non-tender, no palpable masses, peristalsis present, no guarding or rebound. Extremities: Symmetrical, no significant deformities, no peripheral edema , non-tender, peripheral pulses presents. Skin: No rashes, no lesions, warm to touch. Neuro: No focal neurological deficits. motor and sensory intact Psych: Cooperative, appropriate mood and effect Objective Labs 03/09/25 06:00 03/09/25 06:00 Quality Measures Quality Measures none Assessment & Plan Assessment Current Active Medications: Generic Name Dose Route Start Last Admin Trade Name Freq PRN Reason Stop Dose Admin Acetaminophen 650 mg 02/25/25 18:32 02/25/25 18:57 Acetaminophen 325 Mg Tablet PO 03/27/25 18:31 650 mg Q6H PRN Administration pain 1-3 and Fever >100.4 Ethambutol HCl 1,200 mg 03/05/25 09:00 03/13/25 09:11 Ethambutol Hcl 400 Mg Tablet PO 04/04/25 08:59 1,200 mg QDAY YUMIKO Administration Isoniazid 300 mg 03/10/25 11:00 03/14/25 05:43 Isoniazid 300 Mg Tablet PO 04/09/25 10:59 300 mg ACBR YUMIKO Administration Ondansetron HCl 4 mg 02/25/25 18:32 Ondansetron Inj 2 Mg/Ml Inj 2 Ml IV 03/27/25 18:31 Q6H PRN NAUSEA OR VOMITING Protocol Pyrazinamide 1,500 mg 03/05/25 09:00 03/13/25 09:11 Pyrazinamide 500 Mg Tablet PO 04/04/25 08:59 1,500 mg QDAY YUMIKO Administration Pyridoxine HCl 50 mg 03/02/25 09:00 03/13/25 09:11 Pyridoxine 50 Mg Tablet PO 03/02/26 12:00 50 mg QDAY YUMIKO Administration Rifampin 600 mg 03/05/25 09:00 03/13/25 09:11 Rifampin 300 Mg Capsule PO 04/04/25 08:59 600 mg QDAY YUMIKO Administration Plan 24-year-old male with no relevant past medical history was admitted to the hospital 02/25/2025 for TB rule out in the setting of cavitary lesions on imaging. #Active Tuberculosis #Bilateral cavitary lesions #Shortness of breath, resolved #Cough, improving #Sore throat, resolved #Leukocytosis Patient came in with complaints of some shortness of breath along with cough and sore throat for the past 5 months. Patient denied any night sweats or hemoptysis. Patient's chest CT that showed severe cavitary disease in both lungs and chest x-ray also showed cavitary lesions in both lungs. Patient states that he has not had any sick contacts. Patient does not recall having any prior pulmonary issues in the past when he was a child. Patient's WBCs were 18.2 initially, downtrending with no fevers Cocci negative Discussed with pulmonology given cavitary lesions and stated could be Cocci and to repeat Cocci on Sunday if it was negative and to covert for MRSA PNA and get autoimmune workup as well as echo for endocarditis. Blood culture negative and sputum mixed oral ashley AFB's positive on repeat AFBs Discontinued azithromycin and Rocephin (02/25/2025?02/27/2025), Vancomycin (02/26/2025-02/27/2025) and Fluconazole (02/26/2025-03/01/2025) Plan: Will order repeat AFB on Sunday03/16/2025 RIPE (02/27/2025-) -Isoniazid 300mgQD -Ethambutol 1200mg QD -Pyrazinamide 1500mg QD -Rifampin 600mg QD Pyridoxine 50 mg daily Isolation and airborne precautions ID consulted, appreciate recommendations #Thrombocytosis Patient's platelets were 828 initially Most likely hemoconcentration as patient did appear to be a little bit dehydrated. Plan: Will continue to monitor Disposition: Pending negative AFB. Diet: regular GI prophylaxis: not indicated DVT prophylaxis: lovenox Code:Full code Patient's care and plan discussed with my attending Dr. tu Gomez, PGY-1 Disclaimer: Even though this this note was dictated by speech recognition and even though it was carefully revised there may still be minor errors in tile helper due to voice recognition software
[2025-03-14] MEDS: rifAMPin 300 MG CAPSULE 600 MG PO (08:04)
[2025-03-14] MEDS: PYRAZINAMIDE 500 MG TABLET 1500 MG PO (08:04)
[2025-03-14] MEDS: ETHAMBUTOL HCL 400 MG TABLET 1200 MG PO (08:05)
[2025-03-14] MEDS: PYRIDOXINE 50 MG TABLET PO (09:10)
[2025-03-14 14:00] VITALS: BP 95/62; PULSE 84; RESP 17; TEMP 36.8; O2SAT 96
[2025-03-14 22:00] VITALS: BP 126/63; PULSE 75; RESP 16; TEMP 36.9; O2SAT 97
[2025-03-15 06:00] VITALS: BP 104/58; PULSE 75; RESP 16; TEMP 36.1; O2SAT 95
[2025-03-15] MEDS: ISONIAZID 300 MG TABLET PO (06:02)
[2025-03-15] MEDS: PYRAZINAMIDE 500 MG TABLET 1500 MG PO (10:05)
[2025-03-15] MEDS: ETHAMBUTOL HCL 400 MG TABLET 1200 MG PO (10:05)
[2025-03-15] MEDS: rifAMPin 300 MG CAPSULE 600 MG PO (10:06)
[2025-03-15] MEDS: PYRIDOXINE 50 MG TABLET PO (10:06)
--- NOTE | 2025-03-15 11:59 | ESPR_ITS ---
<Statement entered by Yomaria Wasserman MD - 03/20/25 12:36> I reviewed above note and agree with findings and plans. I have also personally examined the patient with medicine team and went over assessment and plan with medical team including nurse intern and resident physician. Documentation for date of: 03/15/25 Subjective Subjective Interval history: Patient was examined bedside this morning, no acute overnight event. He does not have new spikes of fever. No new complaint Exam Vital Signs Temp Pulse Resp BP Pulse Ox O2 Del Method 97.0 F 75 16 104/58 L 95 Room Air 03/15/25 06:00 03/15/25 06:00 03/15/25 06:00 03/15/25 06:00 03/15/25 06:00 03/15/25 06:00 Narrative Exam General: A/O x3, no acute distress, well-nourished, well-developed Eyes: PERRL, EOMI. Anicteric, vision grossly intact. Ears: No ear pain, no ear discharge, Hearing grossly intact. Nose: No nasal discharge. Mouth/Throat: Moist mucous membranes, no redness, no lesions. Neck: Neck supple, non-tender, no cervical lymphadenopathy. Lungs: Clear [id number] to auscultation and percussion, No accessory muscle use. Cardio: Normal S1/S2, regular rhythm, tachycardic, no murmurs, no JVD Abdomen: Soft, non-tender, no palpable masses, peristalsis present, no guarding or rebound. Extremities: Symmetrical, no significant deformities, no peripheral edema , non-tender, peripheral pulses presents. Skin: No rashes, no lesions, warm to touch. Neuro: No focal neurological deficits. motor and sensory intact Psych: Cooperative, appropriate mood and effect Objective Labs 03/09/25 06:00 03/09/25 06:00 Quality Measures Quality Measures none Assessment & Plan Assessment Current Active Medications: Generic Name Dose Route Start Last Admin Trade Name Freq PRN Reason Stop Dose Admin Acetaminophen 650 mg 02/25/25 18:32 02/25/25 18:57 Acetaminophen 325 Mg Tablet PO 03/27/25 18:31 650 mg Q6H PRN Administration pain 1-3 and Fever >100.4 Ethambutol HCl 1,200 mg 03/05/25 09:00 03/15/25 10:05 Ethambutol Hcl 400 Mg Tablet PO 04/04/25 08:59 1,200 mg QDAY YUMIKO Administration Isoniazid 300 mg 03/10/25 11:00 03/15/25 06:02 Isoniazid 300 Mg Tablet PO 04/09/25 10:59 300 mg ACBR YUMIKO Administration Ondansetron HCl 4 mg 02/25/25 18:32 Ondansetron Inj 2 Mg/Ml Inj 2 Ml IV 03/27/25 18:31 Q6H PRN NAUSEA OR VOMITING Protocol Pyrazinamide 1,500 mg 03/05/25 09:00 03/15/25 10:05 Pyrazinamide 500 Mg Tablet PO 04/04/25 08:59 1,500 mg QDAY YUMIKO Administration Pyridoxine HCl 50 mg 03/02/25 09:00 03/15/25 10:06 Pyridoxine 50 Mg Tablet PO 03/02/26 12:00 50 mg QDAY YUMIKO Administration Rifampin 600 mg 03/05/25 09:00 03/15/25 10:06 Rifampin 300 Mg Capsule PO 04/04/25 08:59 600 mg QDAY YUMIKO Administration Plan 24-year-old male with no relevant past medical history was admitted to the hospital 02/25/2025 for TB rule out in the setting of cavitary lesions on imaging. #Active Tuberculosis #Bilateral cavitary lesions #Shortness of breath, resolved #Cough, improving #Sore throat, resolved #Leukocytosis Patient came in with complaints of some shortness of breath along with cough and sore throat for the past 5 months. Patient denied any night sweats or hemoptysis. Patient's chest CT that showed severe cavitary disease in both lungs and chest x-ray also showed cavitary lesions in both lungs. Patient states that he has not had any sick contacts. Patient does not recall having any prior pulmonary issues in the past when he was a child. Patient's WBCs were 18.2 initially, downtrending with no fevers Cocci negative Discussed with pulmonology given cavitary lesions and stated could be Cocci and to repeat Cocci on Sunday if it was negative and to covert for MRSA PNA and get autoimmune workup as well as echo for endocarditis. Blood culture negative and sputum mixed oral ashley AFB's positive on repeat AFBs Discontinued azithromycin and Rocephin (02/25/2025?02/27/2025), Vancomycin (02/26/2025-02/27/2025) and Fluconazole (02/26/2025-03/01/2025) Plan: Will order repeat AFB on Sunday03/16/2025 RIPE (02/27/2025-) -Isoniazid 300mgQD -Ethambutol 1200mg QD -Pyrazinamide 1500mg QD -Rifampin 600mg QD Pyridoxine 50 mg daily Isolation and airborne precautions ID consulted, appreciate recommendations #Thrombocytosis Patient's platelets were 828 initially Most likely hemoconcentration as patient did appear to be a little bit dehydrated. Plan: Will continue to monitor Disposition: Pending negative AFB. Diet: regular GI prophylaxis: not indicated DVT prophylaxis: lovenox Code:Full code Patient's care and plan discussed with my attending Dr. tu Larkin MD,PGY-3 Disclaimer: Even though this this note was dictated by speech recognition and even though it was carefully revised there may still be minor errors in interpreter and translator due to voice recognition software
[2025-03-15 13:54] VITALS: BP 122/78; PULSE 78; RESP 16; TEMP 36.3; O2SAT 95
[2025-03-15 22:00] VITALS: BP 104/60; PULSE 80; RESP 16; TEMP 36.3; O2SAT 97
[2025-03-16 06:00] VITALS: BP 125/56; PULSE 77; RESP 16; TEMP 36.3; O2SAT 96
[2025-03-16] MEDS: ISONIAZID 300 MG TABLET PO (06:04)
--- NOTE | 2025-03-16 09:25 | PD.IDPROG ---
Subjective Subjective Interval history: he originally reported that he lives by himself, and since health dept takes over after he leaves, they determine his discharge status Exam Vital Signs Temp Pulse Resp BP Pulse Ox O2 Del Method 97.3 F 77 16 125/56 L 96 Room Air 03/16/25 06:00 03/16/25 06:00 03/16/25 06:00 03/16/25 06:00 03/16/25 06:00 03/16/25 06:00 Narrative Exam limited visit Objective - Internal Medicine Labs 03/09/25 06:00 03/09/25 06:00 Labs: Laboratory Results - last 24 hr 03/10/25 03/10/25 16:30 18:30 Mycobacterial Culture See Sep Rpt See Sep Rpt Assessment & Plan A&P Narrative cavitary lung disease on chest imaging. qtf and afb's pos mtb naat noted. limited pmh he is not coughing, so you may have lots of trouble getting sputums. testing of contacts is at the discretion of health dept. try to wait about 2 weeks to repeat the sputums as it usually takes that long to clear sputum cx at minimum, if no coughing, even with induction, document that and let health dept decide on isolation will check in on sunday weekly cbc, cmp ok. but if you insist on more often. that is a choice Time Spent With Patient Time: Total time spent is greater than 50% in coordination of care (as documented) at patient's floor/unit and/or counseling patient:
[2025-03-16] MEDS: PYRIDOXINE 50 MG TABLET PO (09:26)
[2025-03-16] MEDS: PYRAZINAMIDE 500 MG TABLET 1500 MG PO (09:26)
[2025-03-16] MEDS: rifAMPin 300 MG CAPSULE 600 MG PO (09:26)
[2025-03-16] MEDS: ETHAMBUTOL HCL 400 MG TABLET 1200 MG PO (09:26)
[2025-03-16 09:44] LABS: Cult AFB Sendout- Sputum* See Sep Rpt
--- NOTE | 2025-03-16 10:57 | PC.RT ---
AFB series 1st [place] @ [id number] 03/16
--- NOTE | 2025-03-16 11:30 | PC.SS ---
SS was put into contact with JULI Benedict from [facility] in regards to coordination on DC planning. Per Jak pt gave address on file that was not his actual address. Upon visiting address [address], there was multiple family living there with no where for pt to isolate. When Jak reached out to pt in regards to situation he reported that was not his address and he didnt know his address. Jak requested for SS to speak to pt to get better understanding of pt living situation. Jak reported they need to visit home and verify pt has a room isolated from others. Private bathroom is not necessary but a plus. She also reported they will be visiting pt every day to administer and witness pt taking medication. informed Jak that SS will coordinate with a Bahraini speaking colleague to go speak to pt and get update on living situation. Jak Jansen RN, [facility] Office Desk phone:? E-mail:? [email or web address]
[2025-03-16 14:00] VITALS: BP 112/67; PULSE 75; RESP 18; TEMP 36.1; O2SAT 96
--- NOTE | 2025-03-16 15:17 | PC.SS ---
SS reached out to Leticia GUADARRAMA in regards to assistance with speaking to pt and helping him understand the process for [facility]. SS went to pt room utilizing all necessary precautions to speak to pt at bedside with the assistance of CHIARA Kelly. Pt reported the address he used was family for the start of [employer]. Pt was accompanied by his cousin and surrogate decision maker Tito Sheffield [phone]. Tito reported pt address where he lives alone is [address] [place] [address]. Tito nd pt also expressed concern with pt being unable to work and rent needing to be paid. SS informed them SS will look into resources for pt with the [facility]. SS contacted Jak and updated her on address and pt concern about rent. Jak reported she explained to pt that they will assit with rental needs. SS called Tito with [employer] to update on assistance that will be available to them.
--- NOTE | 2025-03-16 15:25 | ESPR_ITS ---
<Statement entered by Yomaira Wasserman MD - 03/20/25 14:49> I reviewed above note and agree with findings and plans. I have also personally examined the patient with medicine team and went over assessment and plan with medical team including international accounting manager and resident physician. Documentation for date of: 03/16/25 Subjective Subjective Interval history: Patient examined at bedside. No events overnight, no major complaints. Vitals stable. Leukocytosis improved to 12. RT was able to obtain sputum to send for stain as work up of TB. Will obtain two more samples. Continue to monitor. Exam Vital Signs Temp Pulse Resp BP Pulse Ox O2 Del Method 97.0 F 75 18 112/67 96 Room Air 03/16/25 14:00 03/16/25 14:00 03/16/25 14:03/16/25 14:03/16/25 14:03/16/25 14:00 Narrative Exam General: Yound male, sitting comfortably playing video game, No acute distress, cooperative HEENT: NCAT, No JVD noted. Mucosa moist. Pupils are equal and reactive to light bilaterally Cardiovascular: Normal S1 and S2. Regular rate and rhythm. Respiratory: Lungs are clear to auscultation bilaterally. No wheezing or crackles heard. Abdomen: Soft, nontender, not distended, normal bowel sounds. Skin: Warm to touch, dry, no rashes noted Musculoskeletal: No gross injuries. Able to move all 4 extremities. No pitting edema Neuro: Alert and oriented x3. No focal neuro deficits. Psych: Normal affect and mood Objective Labs 03/09/25 06:00 03/09/25 06:00 Labs: Laboratory Results - last 24 hr 03/10/25 03/10/25 16:30 18:30 Mycobacterial Culture See Sep Rpt See Sep Rpt Quality Measures Quality Measures none Assessment & Plan Assessment Current Active Medications: Generic Name Dose Route Start Last Admin Trade Name Freq PRN Reason Stop Dose Admin Acetaminophen 650 mg 02/25/25 18:32 02/25/25 18:57 Acetaminophen 325 Mg Tablet PO 03/27/25 18:31 650 mg Q6H PRN Administration pain 1-3 and Fever >100.4 Ethambutol HCl 1,200 mg 03/05/25 09:00 03/16/25 09:26 Ethambutol Hcl 400 Mg Tablet PO 04/04/25 08:59 1,200 mg QDAY YUMIKO Administration Isoniazid 300 mg 03/10/25 11:00 03/16/25 06:04 Isoniazid 300 Mg Tablet PO 04/09/25 10:59 300 mg ACBR YUMIKO Administration Ondansetron HCl 4 mg 02/25/25 18:32 Ondansetron Inj 2 Mg/Ml Inj 2 Ml IV 03/27/25 18:31 Q6H PRN NAUSEA OR VOMITING Protocol Pyrazinamide 1,500 mg 03/05/25 09:00 03/16/25 09:26 Pyrazinamide 500 Mg Tablet PO 04/04/25 08:59 1,500 mg QDAY YUMIKO Administration Pyridoxine HCl 50 mg 03/02/25 09:00 03/16/25 09:26 Pyridoxine 50 Mg Tablet PO 03/02/26 12:00 50 mg QDAY YUMIKO Administration Rifampin 600 mg 03/05/25 09:00 03/16/25 09:26 Rifampin 300 Mg Capsule PO 04/04/25 08:59 600 mg QDAY YUMIKO Administration Plan 24-year-old male with no relevant past medical history was admitted to the hospital 02/25/2025 for TB rule out in the setting of cavitary lesions on imaging. #Active Tuberculosis #Bilateral cavitary lesions #Shortness of breath, resolved #Cough, improving #Sore throat, resolved #Leukocytosis Patient came in with complaints of some shortness of breath along with cough and sore throat for the past 5 months. Patient denied any night sweats or hemoptysis. Patient's chest CT that showed severe cavitary disease in both lungs and chest x-ray also showed cavitary lesions in both lungs. Patient states that he has not had any sick contacts. Patient does not recall having any prior pulmonary issues in the past when he was a child. Patient's WBCs were 18.2 initially, downtrending with no fevers Cocci negative Discussed with pulmonology given cavitary lesions and stated could be Cocci and to repeat Cocci on Sunday if it was negative and to covert for MRSA PNA and get autoimmune workup as well as echo for endocarditis. Blood culture negative and sputum mixed oral ashley AFB's positive on repeat AFBs Discontinued azithromycin and Rocephin (02/25/2025?02/27/2025), Vancomycin (02/26/2025-02/27/2025) and Fluconazole (02/26/2025-03/01/2025) Plan: -repeat AFB with 3 sputum samples (/3 obtained) RIPE (02/27/2025-) -Isoniazid 300mgQD -Ethambutol 1200mg QD -Pyrazinamide 1500mg QD -Rifampin 600mg QD Pyridoxine 50 mg daily Isolation and airborne precautions ID consulted, appreciate recommendations #Thrombocytosis Patient's platelets were 828 initially Most likely hemoconcentration as patient did appear to be a little bit dehydrated. -Will continue to monitor Disposition: Pending negative AFB. Diet: regular GI prophylaxis: not indicated DVT prophylaxis: lovenox Code:Full code Patient's care and plan discussed with my attending Dr. Lisy Oliveira, PGY 1
[2025-03-16 20:29] LABS: Cult AFB Sendout- Sputum* See Sep Rpt
[2025-03-16 22:00] VITALS: BP 113/71; PULSE 77; RESP 18; TEMP 36.4; O2SAT 96
[2025-03-17] MEDS: ISONIAZID 300 MG TABLET PO (05:43)
[2025-03-17 06:00] VITALS: BP 108/65; PULSE 88; RESP 17; TEMP 36.3; O2SAT 98
[2025-03-17 06:07] LABS: Cult AFB Sendout- Sputum* See Sep Rpt
[2025-03-17 07:54] VITALS: BP 113/69; PULSE 76; RESP 18; TEMP 36.2; O2SAT 96
[2025-03-17] MEDS: PYRAZINAMIDE 500 MG TABLET 1500 MG PO (08:27)
[2025-03-17] MEDS: PYRIDOXINE 50 MG TABLET PO (08:27)
[2025-03-17] MEDS: rifAMPin 300 MG CAPSULE 600 MG PO (08:27)
[2025-03-17] MEDS: ETHAMBUTOL HCL 400 MG TABLET 1200 MG PO (08:30)
--- NOTE | 2025-03-17 10:33 | PC.SS ---
SS follow up note; Pending 3 more AFB's. Patient will discharge home once medically cleared by [facility].
[2025-03-17 11:58] VITALS: BP 108/60; PULSE 70; RESP 18; TEMP 36.3; O2SAT 97
--- NOTE | 2025-03-17 15:17 | PD.RESPRO ---
Documentation for date of: 03/17/25 Subjective Subjective Interval history: Patient examined at bedside. No events overnight, no major complaints. Vitals stable. Leukocytosis improved to 12. AFB stains have been positive thus far. Repeat samples from 03/16 are pending. Continue to monitor. Exam Vital Signs Temp Pulse Resp BP Pulse Ox O2 Del Method 97.3 F 70 18 108/60 97 Room Air 03/17/25 11:58 03/17/25 11:58 03/17/25 11:58 03/17/25 11:58 03/17/25 11:58 03/17/25 11:58 Narrative Exam General: Yound male, sitting comfortably playing video game, No acute distress, cooperative HEENT: NCAT, No JVD noted. Mucosa moist. Pupils are equal and reactive to light bilaterally Cardiovascular: Normal S1 and S2. Regular rate and rhythm. Respiratory: Lungs are clear to auscultation bilaterally. No wheezing or crackles heard. Abdomen: Soft, nontender, not distended, normal bowel sounds. Skin: Warm to touch, dry, no rashes noted Musculoskeletal: No gross injuries. Able to move all 4 extremities. No pitting edema Neuro: Alert and oriented x3. No focal neuro deficits. Psych: Normal affect and mood Objective Labs 03/09/25 06:00 03/09/25 06:00 Quality Measures Quality Measures none Assessment & Plan Assessment Current Active Medications: Generic Name Dose Route Start Last Admin Trade Name Freq PRN Reason Stop Dose Admin Acetaminophen 650 mg 02/25/25 18:32 02/25/25 18:57 Acetaminophen 325 Mg Tablet PO 03/27/25 18:31 650 mg Q6H PRN Administration pain 1-3 and Fever >100.4 Ethambutol HCl 1,200 mg 03/05/25 09:00 03/17/25 08:30 Ethambutol Hcl 400 Mg Tablet PO 04/04/25 08:59 1,200 mg QDAY YUMIKO Administration Isoniazid 300 mg 03/10/25 11:00 03/17/25 05:43 Isoniazid 300 Mg Tablet PO 04/09/25 10:59 300 mg ACBR YUMIKO Administration Ondansetron HCl 4 mg 02/25/25 18:32 Ondansetron Inj 2 Mg/Ml Inj 2 Ml IV 03/27/25 18:31 Q6H PRN NAUSEA OR VOMITING Protocol Pyrazinamide 1,500 mg 03/05/25 09:00 03/17/25 08:27 Pyrazinamide 500 Mg Tablet PO 04/04/25 08:59 1,500 mg QDAY YUMIKO Administration Pyridoxine HCl 50 mg 03/02/25 09:00 03/17/25 08:27 Pyridoxine 50 Mg Tablet PO 03/02/26 12:00 50 mg QDAY YUMIKO Administration Rifampin 600 mg 03/05/25 09:00 03/17/25 08:27 Rifampin 300 Mg Capsule PO 04/04/25 08:59 600 mg QDAY YUMIKO Administration Plan 24-year-old male with no relevant past medical history was admitted to the hospital 02/25/2025 for TB rule out in the setting of cavitary lesions on imaging. #Active Tuberculosis #Bilateral cavitary lesions #Shortness of breath, resolved #Cough, improving #Sore throat, resolved #Leukocytosis Patient came in with complaints of some shortness of breath along with cough and sore throat for the past 5 months. Patient denied any night sweats or hemoptysis. Patient's chest CT that showed severe cavitary disease in both lungs and chest x-ray also showed cavitary lesions in both lungs. Patient states that he has not had any sick contacts. Patient does not recall having any prior pulmonary issues in the past when he was a child. Patient's WBCs were 18.2 initially, downtrending with no fevers Cocci negative Blood culture negative and sputum mixed oral ashley AFB's have been positive thus far on repeat AFBs Discontinued azithromycin and Rocephin (02/25/2025?02/27/2025), Vancomycin (02/26/2025-02/27/2025) and Fluconazole (02/26/2025-03/01/2025) Plan: -sputum samples from 03/16 are pending RIPE (02/27/2025-) -Isoniazid 300mgQD -Ethambutol 1200mg QD -Pyrazinamide 1500mg QD -Rifampin 600mg QD Pyridoxine 50 mg daily Isolation and airborne precautions ID consulted, appreciate recommendations #Thrombocytosis Patient's platelets were 828 initially Most likely hemoconcentration as patient did appear to be a little bit dehydrated. -Will continue to monitor Disposition: Pending negative AFB. Diet: regular GI prophylaxis: not indicated DVT prophylaxis: lovenox Code:Full code Patient's care and plan discussed with my attending Dr. 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 Continues to have positive AFBs. Once negative will discharge. I reviewed above note and agree with findings and plans. I have also personally examined the patient with medicine team and went over assessment and plan with medical team including international student counselor and resident physician.
[2025-03-17 16:16] VITALS: BP 116/60; PULSE 80; RESP 18; TEMP 36.3; O2SAT 97
[2025-03-18] MEDS: ISONIAZID 300 MG TABLET PO (05:37)
[2025-03-18] MEDS: PYRIDOXINE 50 MG TABLET PO (08:14)
[2025-03-18] MEDS: ETHAMBUTOL HCL 400 MG TABLET 1200 MG PO (08:14)
[2025-03-18] MEDS: PYRAZINAMIDE 500 MG TABLET 1500 MG PO (08:14)
[2025-03-18] MEDS: rifAMPin 300 MG CAPSULE 600 MG PO (08:15)
--- NOTE | 2025-03-18 10:16 | PC.SS ---
SS follow up note; Pending TB clearance. Patient will discharge back home when medically cleared.
[2025-03-18 14:00] VITALS: BP 106/67; PULSE 73; RESP 19; TEMP 36.6; O2SAT 96
--- NOTE | 2025-03-18 14:08 | PD.ADDPROG ---
Addendum Progress Note Addendum Date of report being addended: 03/18/25 Narrative: pllese be sure to work with infection control on his release as initial eval suggested he lived alone.
--- NOTE | 2025-03-18 15:32 | PD.RESPRO ---
Documentation for date of: 03/18/25 Subjective Subjective Interval history: Patient examined at bedside. No events overnight, no major complaints. Vitals stable. AFB stains have been positive thus far. Repeat samples from 03/17 are pending. Continue to monitor. Exam Vital Signs Temp Pulse Resp BP Pulse Ox O2 Del Method 97.8 F 73 19 106/67 96 Room Air 03/18/25 14:00 03/18/25 14:00 03/18/25 14:00 03/18/25 14:00 03/18/25 14:00 03/18/25 14:00 Narrative Exam General: Yound male, sitting comfortably playing video game, No acute distress, cooperative HEENT: NCAT, No JVD noted. Mucosa moist. Pupils are equal and reactive to light bilaterally Cardiovascular: Normal S1 and S2. Regular rate and rhythm. Respiratory: Lungs are clear to auscultation bilaterally. No wheezing or crackles heard. Abdomen: Soft, nontender, not distended, normal bowel sounds. Skin: Warm to touch, dry, no rashes noted Musculoskeletal: No gross injuries. Able to move all 4 extremities. No pitting edema Neuro: Alert and oriented x3. No focal neuro deficits. Psych: Normal affect and mood Objective Labs 03/09/25 06:00 03/09/25 06:00 Labs: Laboratory Results - last 24 hr 03/16/25 09:40 Mycobacterial Culture See Sep Rpt Quality Measures Quality Measures none Assessment & Plan Assessment Current Active Medications: Generic Name Dose Route Start Last Admin Trade Name Freq PRN Reason Stop Dose Admin Acetaminophen 650 mg 02/25/25 18:32 02/25/25 18:57 Acetaminophen 325 Mg Tablet PO 03/27/25 18:31 650 mg Q6H PRN Administration pain 1-3 and Fever >100.4 Ethambutol HCl 1,200 mg 03/05/25 09:00 03/18/25 08:14 Ethambutol Hcl 400 Mg Tablet PO 04/04/25 08:59 1,200 mg QDAY YUMIKO Administration Isoniazid 300 mg 03/10/25 11:00 03/18/25 05:37 Isoniazid 300 Mg Tablet PO 04/09/25 10:59 300 mg ACBR YUMIKO Administration Ondansetron HCl 4 mg 02/25/25 18:32 Ondansetron Inj 2 Mg/Ml Inj 2 Ml IV 03/27/25 18:31 Q6H PRN NAUSEA OR VOMITING Protocol Pyrazinamide 1,500 mg 03/05/25 09:00 03/18/25 08:14 Pyrazinamide 500 Mg Tablet PO 04/04/25 08:59 1,500 mg QDAY YUMIKO Administration Pyridoxine HCl 50 mg 03/02/25 09:00 03/18/25 08:14 Pyridoxine 50 Mg Tablet PO 03/02/26 12:00 50 mg QDAY YUMIKO Administration Rifampin 600 mg 03/05/25 09:00 03/18/25 08:15 Rifampin 300 Mg Capsule PO 04/04/25 08:59 600 mg QDAY YUMIKO Administration Plan 24-year-old male with no relevant past medical history was admitted to the hospital 02/25/2025 for TB rule out in the setting of cavitary lesions on imaging. #Active Tuberculosis #Bilateral cavitary lesions #Shortness of breath, resolved #Cough, improving #Sore throat, resolved #Leukocytosis Patient came in with complaints of some shortness of breath along with cough and sore throat for the past 5 months. Patient denied any night sweats or hemoptysis. Patient's chest CT that showed severe cavitary disease in both lungs and chest x-ray also showed cavitary lesions in both lungs. Patient states that he has not had any sick contacts. Patient does not recall having any prior pulmonary issues in the past when he was a child. Patient's WBCs were 18.2 initially, downtrending with no fevers Cocci negative Blood culture negative and sputum mixed oral ashley AFB's have been positive thus far on repeat AFBs Discontinued azithromycin and Rocephin (02/25/2025?02/27/2025), Vancomycin (02/26/2025-02/27/2025) and Fluconazole (02/26/2025-03/01/2025) Plan: -sputum samples from 03/17 are pending RIPE (02/27/2025-) -Isoniazid 300mgQD -Ethambutol 1200mg QD -Pyrazinamide 1500mg QD -Rifampin 600mg QD Pyridoxine 50 mg daily Isolation and airborne precautions ID consulted, appreciate recommendations #Thrombocytosis Patient's platelets were 828 initially Most likely hemoconcentration as patient did appear to be a little bit dehydrated. -Will continue to monitor Disposition: Pending negative AFB. Diet: regular GI prophylaxis: not indicated DVT prophylaxis: lovenox Code:Full code Patient's care and plan discussed with my attending Dr. 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 Continues to have positive AFBs. Once negative will discharge. I reviewed above note and agree with findings and plans. I have also personally examined the patient with medicine team and went over assessment and plan with medical team including internal combustion engine assembler and resident physician.
[2025-03-18 20:00] VITALS: BP 132/78; PULSE 70; RESP 19; TEMP 36.7; O2SAT 96
[2025-03-18 22:00] VITALS: BP 123/80; PULSE 93; RESP 18; TEMP 36.8; O2SAT 96
[2025-03-19] MEDS: ISONIAZID 300 MG TABLET PO (05:17)
[2025-03-19 06:00] VITALS: BP 108/64; PULSE 68; RESP 16; TEMP 36.3; O2SAT 94
[2025-03-19 07:57] VITALS: BP 121/69; PULSE 80; RESP 16; TEMP 36.3; O2SAT 94
[2025-03-19] MEDS: PYRIDOXINE 50 MG TABLET PO (08:04)
[2025-03-19] MEDS: rifAMPin 300 MG CAPSULE 600 MG PO (08:04)
[2025-03-19] MEDS: PYRAZINAMIDE 500 MG TABLET 1500 MG PO (08:04)
[2025-03-19] MEDS: ETHAMBUTOL HCL 400 MG TABLET 1200 MG PO (08:04)
--- NOTE | 2025-03-19 11:24 | PC.IP ---
[facility] and medication administration record from 03-06 through today. Will be to them faxed today. [facility] is assessing his housing situation when he is discharged.
[2025-03-19 11:30] LABS: Cult AFB Sendout- Sputum* See Sep Rpt
--- NOTE | 2025-03-19 13:25 | PC.SS ---
Rounding: Pending AFBs
--- NOTE | 2025-03-19 15:26 | ESPR_ITS ---
Documentation for date of: 03/19/25 Subjective Subjective Interval history: Patient examined at bedside. No events overnight, no major complaints. Vitals stable. AFB stains have been positive thus far. Continue to repeat sputum samples. Continue to monitor and RIPE treatment. Exam Vital Signs Temp Pulse Resp BP Pulse Ox O2 Del Method 97.4 F 80 16 121/69 94 L Room Air 03/19/25 07:57 03/19/25 07:57 03/19/25 07:57 03/19/25 07:57 03/19/25 07:57 03/19/25 07:57 Narrative Exam General: Yound male, sleeping, No acute distress, cooperative HEENT: NCAT, No JVD noted. Mucosa moist. Pupils are equal and reactive to light bilaterally Cardiovascular: Normal S1 and S2. Regular rate and rhythm. Respiratory: Lungs are clear to auscultation bilaterally. No wheezing or crackles heard. Abdomen: Soft, nontender, not distended, normal bowel sounds. Skin: Warm to touch, dry, no rashes noted Musculoskeletal: No gross injuries. Able to move all 4 extremities. No pitting edema Neuro: Alert and oriented x3. No focal neuro deficits. Psych: Normal affect and mood Objective Labs 03/09/25 06:00 03/09/25 06:00 Labs: Laboratory Results - last 24 hr 03/16/25 03/17/25 20:20 05:40 Mycobacterial Culture See Sep Rpt See Sep Rpt Quality Measures Quality Measures none Assessment & Plan Assessment Current Active Medications: Generic Name Dose Route Start Last Admin Trade Name Freq PRN Reason Stop Dose Admin Acetaminophen 650 mg 02/25/25 18:32 02/25/25 18:57 Acetaminophen 325 Mg Tablet PO 03/27/25 18:31 650 mg Q6H PRN Administration pain 1-3 and Fever >100.4 Ethambutol HCl 1,200 mg 03/05/25 09:00 03/19/25 08:04 Ethambutol Hcl 400 Mg Tablet PO 04/04/25 08:59 1,200 mg QDAY YUMIKO Administration Isoniazid 300 mg 03/10/25 11:00 03/19/25 05:17 Isoniazid 300 Mg Tablet PO 04/09/25 10:59 300 mg ACBR YUMIKO Administration Ondansetron HCl 4 mg 02/25/25 18:32 Ondansetron Inj 2 Mg/Ml Inj 2 Ml IV 03/27/25 18:31 Q6H PRN NAUSEA OR VOMITING Protocol Pyrazinamide 1,500 mg 03/05/25 09:00 03/19/25 08:04 Pyrazinamide 500 Mg Tablet PO 04/04/25 08:59 1,500 mg QDAY YUMIKO Administration Pyridoxine HCl 50 mg 03/02/25 09:00 03/19/25 08:04 Pyridoxine 50 Mg Tablet PO 03/02/26 12:00 50 mg QDAY YUMIKO Administration Rifampin 600 mg 03/05/25 09:00 03/19/25 08:04 Rifampin 300 Mg Capsule PO 04/04/25 08:59 600 mg QDAY YUMIKO Administration Plan 24-year-old male with no relevant past medical history was admitted to the hospital 02/25/2025 for TB rule out in the setting of cavitary lesions on imaging. #Active Tuberculosis #Bilateral cavitary lesions #Shortness of breath, resolved #Cough, improving #Sore throat, resolved #Leukocytosis Patient came in with complaints of some shortness of breath along with cough and sore throat for the past 5 months. Patient denied any night sweats or hemoptysis. Patient's chest CT that showed severe cavitary disease in both lungs and chest x-ray also showed cavitary lesions in both lungs. Patient states that he has not had any sick contacts. Patient does not recall having any prior pulmonary issues in the past when he was a child. Patient's WBCs were 18.2 initially, downtrending with no fevers Cocci negative Blood culture negative and sputum mixed oral ashley AFB's have been positive thus far on repeat AFBs Discontinued azithromycin and Rocephin (02/25/2025?02/27/2025), Vancomycin (02/26/2025-02/27/2025) and Fluconazole (02/26/2025-03/01/2025) Plan: -sputum samples from 03/18 are pending RIPE (02/27/2025-) -Isoniazid 300mgQD -Ethambutol 1200mg QD -Pyrazinamide 1500mg QD -Rifampin 600mg QD Pyridoxine 50 mg daily Isolation and airborne precautions ID consulted, appreciate recommendations #Thrombocytosis Patient's platelets were 828 initially Most likely hemoconcentration as patient did appear to be a little bit dehydrated. -Will continue to monitor Disposition: Pending negative AFB. Diet: regular GI prophylaxis: not indicated DVT prophylaxis: lovenox Code:Full code Patient's care and plan discussed with my attending Dr. 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 Continues to have positive AFBs. Once negative will discharge. I reviewed above note and agree with findings and plans. I have also personally examined the patient with medicine team and went over assessment and plan with medical team including international bank manager and resident physician.
[2025-03-19 15:29] VITALS: BMI 25.0
[2025-03-19 22:00] VITALS: BP 133/70; PULSE 77; RESP 18; TEMP 36.3; O2SAT 98
[2025-03-20 06:00] VITALS: BP 106/65; PULSE 75; RESP 18; TEMP 36.3; O2SAT 96
[2025-03-20] MEDS: ISONIAZID 300 MG TABLET PO (06:56)
[2025-03-20] MEDS: ETHAMBUTOL HCL 400 MG TABLET 1200 MG PO (08:01)
[2025-03-20] MEDS: PYRIDOXINE 50 MG TABLET PO (08:01)
[2025-03-20] MEDS: rifAMPin 300 MG CAPSULE 600 MG PO (08:01)
[2025-03-20] MEDS: PYRAZINAMIDE 500 MG TABLET 1500 MG PO (08:02)
--- NOTE | 2025-03-20 09:22 | PD.IDPROG ---
Subjective Subjective Interval history: ok to get afb's this weekend and work with ip who works with health dept on criteria for release. he lives alone as noted previously Exam Vital Signs Temp Pulse Resp BP Pulse Ox O2 Del Method 97.4 F 75 18 106/65 96 Room Air 03/20/25 06:00 03/20/25 06:00 03/20/25 06:00 03/20/25 06:00 03/20/25 06:00 03/20/25 06:00 Narrative Exam limited eval Objective - Internal Medicine Labs 03/09/25 06:00 03/09/25 06:00 Assessment & Plan A&P Narrative cavitary lung disease on chest imaging. qtf and afb's pos mtb naat noted. limited pmh he is not coughing, so you may have trouble getting sputums. testing of outpt contacts is at the discretion of health dept. try to wait about 2 weeks to repeat the sputums as it usually takes that long to clear sputum cx at minimum, if no coughing, even with induction, document that and let health dept and IP decide on isolation will check in on Sunday weekly cbc, cmp ok. but if you insist on more often. that is a choice Time Spent With Patient Time: Total time spent is greater than 50% in coordination of care (as documented) at patient's floor/unit and/or counseling patient:
[2025-03-20 10:44] LABS: Cult AFB Sendout- Sputum* See Sep Rpt
[2025-03-20 14:00] VITALS: BP 115/49; PULSE 65; RESP 15; TEMP 36.2; O2SAT 97
--- NOTE | 2025-03-20 14:17 | PC.SS ---
SS follow up note; Patient is pending medical clearance by [facility]. Patient will discharge back home when medically cleared.
--- NOTE | 2025-03-20 15:41 | PD.RESPRO ---
Documentation for date of: 03/20/25 Subjective Subjective Interval history: Patient examined at bedside. No events overnight, no major complaints. Vitals stable. AFB stains have been positive thus far. Continue to repeat sputum samples. Continue to monitor and RIPE treatment. Exam Vital Signs Temp Pulse Resp BP Pulse Ox O2 Del Method 97.4 F 75 18 106/65 96 Room Air 03/20/25 06:00 03/20/25 06:00 03/20/25 06:00 03/20/25 06:00 03/20/25 06:00 03/20/25 06:00 Narrative Exam General: Yound male, sleeping, No acute distress, cooperative HEENT: NCAT, No JVD noted. Mucosa moist. Pupils are equal and reactive to light bilaterally Cardiovascular: Normal S1 and S2. Regular rate and rhythm. Respiratory: Lungs are clear to auscultation bilaterally. No wheezing or crackles heard. Abdomen: Soft, nontender, not distended, normal bowel sounds. Skin: Warm to touch, dry, no rashes noted Musculoskeletal: No gross injuries. Able to move all 4 extremities. No pitting edema Neuro: Alert and oriented x3. No focal neuro deficits. Psych: Normal affect and mood Objective Labs 03/09/25 06:00 03/09/25 06:00 Quality Measures Quality Measures none Assessment & Plan Assessment Current Active Medications: Generic Name Dose Route Start Last Admin Trade Name Freq PRN Reason Stop Dose Admin Acetaminophen 650 mg 02/25/25 18:32 02/25/25 18:57 Acetaminophen 325 Mg Tablet PO 03/27/25 18:31 650 mg Q6H PRN Administration pain 1-3 and Fever >100.4 Ethambutol HCl 1,200 mg 03/05/25 09:00 03/20/25 08:01 Ethambutol Hcl 400 Mg Tablet PO 04/04/25 08:59 1,200 mg QDAY YUMIKO Administration Isoniazid 300 mg 03/10/25 11:00 03/20/25 06:56 Isoniazid 300 Mg Tablet PO 04/09/25 10:59 300 mg ACBR YUMIKO Administration Ondansetron HCl 4 mg 02/25/25 18:32 Ondansetron Inj 2 Mg/Ml Inj 2 Ml IV 03/27/25 18:31 Q6H PRN NAUSEA OR VOMITING Protocol Pyrazinamide 1,500 mg 03/05/25 09:00 03/20/25 08:02 Pyrazinamide 500 Mg Tablet PO 04/04/25 08:59 1,500 mg QDAY YUMIKO Administration Pyridoxine HCl 50 mg 03/02/25 09:00 03/20/25 08:01 Pyridoxine 50 Mg Tablet PO 03/02/26 12:00 50 mg QDAY YUMIKO Administration Rifampin 600 mg 03/05/25 09:00 03/20/25 08:01 Rifampin 300 Mg Capsule PO 04/04/25 08:59 600 mg QDAY YUMIKO Administration Plan 24-year-old male with no relevant past medical history was admitted to the hospital 02/25/2025 for TB rule out in the setting of cavitary lesions on imaging. #Active Tuberculosis #Bilateral cavitary lesions #Shortness of breath, resolved #Cough, improving #Sore throat, resolved #Leukocytosis Patient came in with complaints of some shortness of breath along with cough and sore throat for the past 5 months. Patient denied any night sweats or hemoptysis. Patient's chest CT that showed severe cavitary disease in both lungs and chest x-ray also showed cavitary lesions in both lungs. Patient states that he has not had any sick contacts. Patient does not recall having any prior pulmonary issues in the past when he was a child. Patient's WBCs were 18.2 initially, downtrending with no fevers Cocci negative Blood culture negative and sputum mixed oral ashley AFB's have been positive thus far on repeat AFBs Discontinued azithromycin and Rocephin (02/25/2025?02/27/2025), Vancomycin (02/26/2025-02/27/2025) and Fluconazole (02/26/2025-03/01/2025) Plan: -sputum samples from 03/18 are pending RIPE (02/27/2025-) -Isoniazid 300mgQD -Ethambutol 1200mg QD -Pyrazinamide 1500mg QD -Rifampin 600mg QD Pyridoxine 50 mg daily Isolation and airborne precautions ID consulted, appreciate recommendations #Thrombocytosis Patient's platelets were 828 initially Most likely hemoconcentration as patient did appear to be a little bit dehydrated. -Will continue to monitor Disposition: Pending negative AFB. Diet: regular GI prophylaxis: not indicated DVT prophylaxis: lovenox Code:Full code Patient's care and plan discussed with my attending Dr. 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 Continues to have positive AFBs. Once negative will discharge. I reviewed above note and agree with findings and plans. I have also personally examined the patient with medicine team and went over assessment and plan with medical team including business management intern and resident physician.
[2025-03-20 22:00] VITALS: BP 113/70; PULSE 78; RESP 17; TEMP 36.6; O2SAT 97
[2025-03-21] MEDS: ISONIAZID 300 MG TABLET PO (05:39)
[2025-03-21 06:00] VITALS: BP 115/64; PULSE 81; RESP 16; TEMP 36.4; O2SAT 98
--- NOTE | 2025-03-21 09:26 | ESPR_ITS ---
<Statement entered by India Gamez MD - 03/21/25 13:28> I India Gamez MD reviewed the note and agree with the resident's assessment & plan with exceptions as below. I have personally reviewed labs, imaging, home meds/prior records, examined the patient, formulated and discussed management plan with the IM team. 24-year-old M was admitted for treatment of active tuberculosis. Repeat AFB are pending. Continue antituberculous medications unchanged as above Documentation for date of: 03/21/25 Subjective Subjective Interval history: patient examined beedside this morning, no acute overnight event. Still pending AFBs to be negative. Exam Vital Signs Temp Pulse Resp BP Pulse Ox O2 Del Method 97.6 F 81 16 115/64 98 Room Air 03/21/25 06:00 03/21/25 06:00 03/21/25 06:00 03/21/25 06:00 03/21/25 06:00 03/21/25 06:00 Narrative Exam General: Yound male, sleeping, No acute distress, cooperative HEENT: NCAT, No JVD noted. Mucosa moist. Pupils are equal and reactive to light bilaterally Cardiovascular: Normal S1 and S2. Regular rate and rhythm. Respiratory: Lungs are clear to auscultation bilaterally. No wheezing or crackles heard. Abdomen: Soft, nontender, not distended, normal bowel sounds. Skin: Warm to touch, dry, no rashes noted Musculoskeletal: No gross injuries. Able to move all 4 extremities. No pitting edema Neuro: Alert and oriented x3. No focal neuro deficits. Psych: Normal affect and mood Objective Labs 03/09/25 06:00 03/09/25 06:00 Quality Measures Quality Measures none Assessment & Plan Assessment Current Active Medications: Generic Name Dose Route Start Last Admin Trade Name Freq PRN Reason Stop Dose Admin Acetaminophen 650 mg 02/25/25 18:32 02/25/25 18:57 Acetaminophen 325 Mg Tablet PO 03/27/25 18:31 650 mg Q6H PRN Administration pain 1-3 and Fever >100.4 Ethambutol HCl 1,200 mg 03/05/25 09:00 03/20/25 08:01 Ethambutol Hcl 400 Mg Tablet PO 04/04/25 08:59 1,200 mg QDAY YUMIKO Administration Isoniazid 300 mg 03/10/25 11:00 06/07/25 05:39 Isoniazid 300 Mg Tablet PO 04/09/25 10:59 300 mg ACBR YUMIKO Administration Ondansetron HCl 4 mg 02/25/25 18:32 Ondansetron Inj 2 Mg/Ml Inj 2 Ml IV 03/27/25 18:31 Q6H PRN NAUSEA OR VOMITING Protocol Pyrazinamide 1,500 mg 03/05/25 09:00 03/20/25 08:02 Pyrazinamide 500 Mg Tablet PO 04/04/25 08:59 1,500 mg QDAY YUMIKO Administration Pyridoxine HCl 50 mg 03/02/25 09:00 03/20/25 08:01 Pyridoxine 50 Mg Tablet PO 03/02/26 12:00 50 mg QDAY YUMIKO Administration Rifampin 600 mg 03/05/25 09:00 03/20/25 08:01 Rifampin 300 Mg Capsule PO 04/04/25 08:59 600 mg QDAY YUMIKO Administration Plan 24-year-old male with no relevant past medical history was admitted to the hospital 02/25/2025 for TB rule out in the setting of cavitary lesions on imaging. #Active Tuberculosis #Bilateral cavitary lesions #Shortness of breath, resolved #Cough, improving #Sore throat, resolved #Leukocytosis Patient came in with complaints of some shortness of breath along with cough and sore throat for the past 5 months. Patient denied any night sweats or hemoptysis. Patient's chest CT that showed severe cavitary disease in both lungs and chest x-ray also showed cavitary lesions in both lungs. Patient states that he has not had any sick contacts. Patient does not recall having any prior pulmonary issues in the past when he was a child. Patient's WBCs were 18.2 initially, downtrending with no fevers Cocci negative Blood culture negative and sputum mixed oral ashley AFB's have been positive thus far on repeat AFBs Discontinued azithromycin and Rocephin (02/25/2025?02/27/2025), Vancomycin (02/26/2025-02/27/2025) and Fluconazole (02/26/2025-03/01/2025) Plan: -sputum samples from 03/18 are pending RIPE (02/27/2025-) -Isoniazid 300mgQD -Ethambutol 1200mg QD -Pyrazinamide 1500mg QD -Rifampin 600mg QD Pyridoxine 50 mg daily Isolation and airborne precautions ID consulted, appreciate recommendations #Thrombocytosis Patient's platelets were 828 initially Most likely hemoconcentration as patient did appear to be a little bit dehydrated. -Will continue to monitor Disposition: Pending negative AFB. Diet: regular GI prophylaxis: not indicated DVT prophylaxis: lovenox Code:Full code Patient's care and plan discussed with my attending Dr. Franco Larkin MD, PGY- 3
[2025-03-21] MEDS: rifAMPin 300 MG CAPSULE 600 MG PO (09:36)
[2025-03-21] MEDS: ETHAMBUTOL HCL 400 MG TABLET 1200 MG PO (09:38)
[2025-03-21] MEDS: PYRIDOXINE 50 MG TABLET PO (11:37)
[2025-03-21] MEDS: PYRAZINAMIDE 500 MG TABLET 1500 MG PO ×2 (11:39→11:57)
--- NOTE | 2025-03-21 11:40 | PC.NURSE ---
Previously called pharmacy for missing meds,. Meds not available, Medication is now available will DMINISTER.
[2025-03-21 14:00] VITALS: BP 118/69; PULSE 79; RESP 17; TEMP 36.6; O2SAT 99
[2025-03-21 22:00] VITALS: BP 113/61; PULSE 68; RESP 16; TEMP 36.6; O2SAT 94
[2025-03-22] MEDS: ISONIAZID 300 MG TABLET PO (05:10)
[2025-03-22 05:28] VITALS: BP 103/57; PULSE 80; RESP 20; TEMP 36.7; O2SAT 95
--- NOTE | 2025-03-22 07:54 | PD.IDPROG ---
Subjective Subjective Interval history: unless he lives with others, he may be able to go home. you may have to contact infection control/prevention for clearance though Exam Vital Signs Temp Pulse Resp BP Pulse Ox O2 Del Method 98.1 F 80 20 103/57 L 95 Room Air 03/22/25 05:28 03/22/25 05:28 03/22/25 05:28 03/22/25 05:28 03/22/25 05:28 03/22/25 05:28 Narrative Exam unable to see till sun as I am at a graduation Objective - Internal Medicine Labs 03/09/25 06:00 03/09/25 06:00 Assessment & Plan A&P Narrative cavitary lung disease on chest imaging. qtf and afb's pos mtb naat noted. limited pmh he is not coughing, so you may have trouble getting sputums. testing of outpt contacts is at the discretion of health de will check in on Sunday weekly cbc, cmp ok. but if you insist on more often. that is a choice Time Spent With Patient Time: Total time spent is greater than 50% in coordination of care (as documented) at patient's floor/unit and/or counseling patient:
[2025-03-22] MEDS: ETHAMBUTOL HCL 400 MG TABLET 1200 MG PO (09:12)
[2025-03-22] MEDS: rifAMPin 300 MG CAPSULE 600 MG PO (09:13)
[2025-03-22] MEDS: PYRIDOXINE 50 MG TABLET PO (09:13)
[2025-03-22] MEDS: PYRAZINAMIDE 500 MG TABLET 1500 MG PO (09:15)
--- NOTE | 2025-03-22 10:51 | PC.SS ---
SS follow up note; Pending TB clearance. Patient will discharge back home when medically cleared.
[2025-03-22 14:00] VITALS: BP 111/64; PULSE 69; RESP 14; TEMP 36.1; O2SAT 96
--- NOTE | 2025-03-22 15:46 | ESPR_ITS ---
<Statement entered by Yomaira Wasserman MD - 04/03/25 14:04> I reviewed above note and agree with findings and plans. I have also personally examined the patient with medicine team and went over assessment and plan with medical team including international marketing intern and resident physician. Documentation for date of: 03/22/25 Subjective Subjective Interval history: Patient examined at bedside. No events overnight, no major complaints. Vitals stable. AFB stains have been positive thus far. Continue to repeat sputum samples. Continue to monitor and RIPE treatment. Exam Vital Signs Temp Pulse Resp BP Pulse Ox O2 Del Method 97.0 F 69 14 111/64 96 Room Air 03/22/25 14:00 03/22/25 14:00 03/22/25 14:00 03/22/25 14:00 03/22/25 14:00 03/22/25 14:00 Narrative Exam General: Yound male, sleeping, No acute distress, cooperative HEENT: NCAT, No JVD noted. Mucosa moist. Pupils are equal and reactive to light bilaterally Cardiovascular: Normal S1 and S2. Regular rate and rhythm. Respiratory: Lungs are clear to auscultation bilaterally. No wheezing or crackles heard. Abdomen: Soft, nontender, not distended, normal bowel sounds. Skin: Warm to touch, dry, no rashes noted Musculoskeletal: No gross injuries. Able to move all 4 extremities. No pitting edema Neuro: Alert and oriented x3. No focal neuro deficits. Psych: Normal affect and mood Objective Labs 03/09/25 06:00 03/09/25 06:00 Quality Measures Quality Measures none Assessment & Plan Assessment Current Active Medications: Generic Name Dose Route Start Last Admin Trade Name Freq PRN Reason Stop Dose Admin Acetaminophen 650 mg 02/25/25 18:32 02/25/25 18:57 Acetaminophen 325 Mg Tablet PO 03/27/25 18:31 650 mg Q6H PRN Administration pain 1-3 and Fever >100.4 Ethambutol HCl 1,200 mg 03/05/25 09:00 03/22/25 09:12 Ethambutol Hcl 400 Mg Tablet PO 04/04/25 08:59 1,200 mg QDAY YUMIKO Administration Isoniazid 300 mg 03/10/25 11:00 03/22/25 05:10 Isoniazid 300 Mg Tablet PO 04/09/25 10:59 300 mg ACBR YUMIKO Administration Ondansetron HCl 4 mg 02/25/25 18:32 Ondansetron Inj 2 Mg/Ml Inj 2 Ml IV 03/27/25 18:31 Q6H PRN NAUSEA OR VOMITING Protocol Pyrazinamide 1,500 mg 03/05/25 09:00 03/22/25 09:15 Pyrazinamide 500 Mg Tablet PO 04/04/25 08:59 1,500 mg QDAY YUMIKO Administration Pyridoxine HCl 50 mg 03/02/25 09:00 03/22/25 09:13 Pyridoxine 50 Mg Tablet PO 03/02/26 12:00 50 mg QDAY YUMIKO Administration Rifampin 600 mg 03/05/25 09:00 03/22/25 09:13 Rifampin 300 Mg Capsule PO 04/04/25 08:59 600 mg QDAY YUMIKO Administration Plan 24-year-old male with no relevant past medical history was admitted to the hospital 02/25/2025 for TB rule out in the setting of cavitary lesions on imaging. #Active Tuberculosis #Bilateral cavitary lesions #Shortness of breath, resolved #Cough, improving #Sore throat, resolved #Leukocytosis Patient came in with complaints of some shortness of breath along with cough and sore throat for the past 5 months. Patient denied any night sweats or hemoptysis. Patient's chest CT that showed severe cavitary disease in both lungs and chest x-ray also showed cavitary lesions in both lungs. Patient states that he has not had any sick contacts. Patient does not recall having any prior pulmonary issues in the past when he was a child. Patient's WBCs were 18.2 initially, downtrending with no fevers Cocci negative Blood culture negative and sputum mixed oral ashley AFB's have been positive thus far on repeat AFBs Discontinued azithromycin and Rocephin (02/25/2025?02/27/2025), Vancomycin (02/26/2025-02/27/2025) and Fluconazole (02/26/2025-03/01/2025) Plan: -sputum samples from 03/18 are pending RIPE (02/27/2025-) -Isoniazid 300mgQD -Ethambutol 1200mg QD -Pyrazinamide 1500mg QD -Rifampin 600mg QD Pyridoxine 50 mg daily Isolation and airborne precautions ID consulted, appreciate recommendations #Thrombocytosis Patient's platelets were 828 initially Most likely hemoconcentration as patient did appear to be a little bit dehydrated. -Will continue to monitor Disposition: Pending negative AFB. Diet: regular GI prophylaxis: not indicated DVT prophylaxis: lovenox Code:Full code Patient's care and plan discussed with my attending Dr. Wasserman. Jumana Oliveira, PGY1
[2025-03-22 22:00] VITALS: BP 125/70; PULSE 91; RESP 17; TEMP 36.7; O2SAT 97
[2025-03-23] MEDS: ISONIAZID 300 MG TABLET PO (05:09)
[2025-03-23 06:00] VITALS: BP 112/72; PULSE 86; RESP 17; TEMP 36.5; O2SAT 97
[2025-03-23 07:38] LABS: Cult AFB Sendout- Sputum* See Sep Rpt
[2025-03-23] MEDS: PYRAZINAMIDE 500 MG TABLET 1500 MG PO (08:05)
[2025-03-23] MEDS: rifAMPin 300 MG CAPSULE 600 MG PO (08:05)
[2025-03-23] MEDS: PYRIDOXINE 50 MG TABLET PO (08:05)
[2025-03-23] MEDS: ETHAMBUTOL HCL 400 MG TABLET 1200 MG PO (08:05)
--- NOTE | 2025-03-23 10:54 | ESCONSULT_ITS ---
RE: JUAN LUIS STANTON : 2000 DATE OF CONSULTATION: 03/18/2025 REFERRING PHYSICIAN: hospitalist team REASON FOR CONSULTATION: Pneumonia with influenza A positivity and seizure disorder. HISTORY OF PRESENT ILLNESS: The patient is an unfortunate man with positive blood cultures on admission that appear to be contaminated, and also strep throat negative the next day. This is 48 hours, so those who probably reliable going to be negative. The patient has been on vancomycin and Rocephin. Radiology called pneumonia in the left lower lobe because they could not tell, but I am not sure that the patient has pneumonia clinically. He is not hypoxic. He does not seem to have trouble breathing. He does have influenza A, but because Radiology called pneumonia, we are going to have to treat his medical problems include seizure disorder based on his medications and mental health problems based on his history. He appears to have of course some sort of defect in his learning capacity, which is unspecified. Surgical history is as noted in the record. ALLERGIES: PENICILLIN, TYPE OF REACTION IS UNKNOWN. IMMUNIZATIONS: Unavailable. FAMILY HISTORY: Noncontributory. SOCIAL HISTORY: as noted before. The patient is from a [facility]. Apparently, he is a nonsmoker. MEDICATIONS: He is able to take oral medications. He has been on oral Tamiflu since admission. PHYSICAL EXAMINATION: Benign. The patient is awake, alert, cooperative, and not ill-appearing. He is in no distress. ASSESSMENT AND PLAN: Pneumonis and flu, both seem to be improved. We will probably switch him to some oral antibiotics. He is already on oral medication for the flu and will finish flu treatment after 5 days, finishing regular antibiotics after 7 days. I will see him again as needed in hospital, tut there is no need for him to follow up with infectious disease. DT: 14:49:56 TT: 16:15:00 Ref: [id number] - TID: [id number]
--- NOTE | 2025-03-23 11:42 | PD.RESPRO ---
Documentation for date of: 03/23/25 Subjective Subjective Interval history: Patient examined at bedside. No events overnight, no major complaints. Vitals stable. AFB stains have been positive thus far. Continue to repeat sputum samples. Continue to monitor and RIPE treatment. Exam Vital Signs Temp Pulse Resp BP Pulse Ox O2 Del Method 97.1 F 76 16 115/62 97 Room Air 03/27/25 06:00 03/27/25 06:00 03/27/25 06:00 03/27/25 06:00 03/27/25 06:00 03/27/25 06:00 Narrative Exam General: Yound male, sleeping, No acute distress, cooperative HEENT: NCAT, No JVD noted. Mucosa moist. Pupils are equal and reactive to light bilaterally Cardiovascular: Normal S1 and S2. Regular rate and rhythm. Respiratory: Lungs are clear to auscultation bilaterally. No wheezing or crackles heard. Abdomen: Soft, nontender, not distended, normal bowel sounds. Skin: Warm to touch, dry, no rashes noted Musculoskeletal: No gross injuries. Able to move all 4 extremities. No pitting edema Neuro: Alert and oriented x3. No focal neuro deficits. Psych: Normal affect and mood Objective Labs 03/25/25 05:05 03/25/25 05:05 Quality Measures Quality Measures none Assessment & Plan Assessment Current Active Medications: Generic Name Dose Route Start Last Admin Trade Name Freq PRN Reason Stop Dose Admin Acetaminophen 650 mg 02/25/25 18:32 02/25/25 18:57 Acetaminophen 325 Mg Tablet PO 03/27/25 18:31 650 mg Q6H PRN Administration pain 1-3 and Fever >100.4 Ethambutol HCl 1,200 mg 03/05/25 09:00 03/27/25 10:05 Ethambutol Hcl 400 Mg Tablet PO 04/04/25 08:59 1,200 mg QDAY YUMIKO Administration Isoniazid 300 mg 03/10/25 11:00 03/27/25 06:49 Isoniazid 300 Mg Tablet PO 04/09/25 10:59 300 mg ACBR YUMIKO Administration Ondansetron HCl 4 mg 02/25/25 18:32 Ondansetron Inj 2 Mg/Ml Inj 2 Ml IV 03/27/25 18:31 Q6H PRN NAUSEA OR VOMITING Protocol Pyrazinamide 1,500 mg 03/05/25 09:00 03/27/25 09:03 Pyrazinamide 500 Mg Tablet PO 04/04/25 08:59 1,500 mg QDAY YUMIKO Administration Pyridoxine HCl 50 mg 03/02/25 09:00 03/27/25 09:03 Pyridoxine 50 Mg Tablet PO 03/02/26 12:00 50 mg QDAY YUMIKO Administration Rifampin 600 mg 03/05/25 09:00 03/27/25 09:03 Rifampin 300 Mg Capsule PO 04/04/25 08:59 600 mg QDAY YUMIKO Administration Plan 24-year-old male with no relevant past medical history was admitted to the hospital 02/25/2025 for TB rule out in the setting of cavitary lesions on imaging. #Active Tuberculosis #Bilateral cavitary lesions #Shortness of breath, resolved #Cough, improving #Sore throat, resolved #Leukocytosis Patient came in with complaints of some shortness of breath along with cough and sore throat for the past 5 months. Patient denied any night sweats or hemoptysis. Patient's chest CT that showed severe cavitary disease in both lungs and chest x-ray also showed cavitary lesions in both lungs. Patient states that he has not had any sick contacts. Patient does not recall having any prior pulmonary issues in the past when he was a child. Patient's WBCs were 18.2 initially, downtrending with no fevers Cocci negative Blood culture negative and sputum mixed oral ashley AFB's have been positive thus far on repeat AFBs Discontinued azithromycin and Rocephin (02/25/2025?02/27/2025), Vancomycin (02/26/2025-02/27/2025) and Fluconazole (02/26/2025-03/01/2025) Plan: -sputum samples from 03/19 pending RIPE (02/27/2025-) -Isoniazid 300mgQD -Ethambutol 1200mg QD -Pyrazinamide 1500mg QD -Rifampin 600mg QD Pyridoxine 50 mg daily Isolation and airborne precautions ID consulted, appreciate recommendations #Thrombocytosis Patient's platelets were 828 initially Most likely hemoconcentration as patient did appear to be a little bit dehydrated. -Will continue to monitor Disposition: Pending negative AFB. Diet: regular GI prophylaxis: not indicated DVT prophylaxis: lovenox Code:Full code Patient's care and plan discussed with my attending Dr. Farrell. Jumana Oliveira, PGY1 Attending Provider Attestation/Addendum I attest that I was physically present for the evaluation, physical examination, lab and imaging review of the patient with the residents. I discussed the case with the residents and agree with the findings and plans of care as documented above. José Miguel Farrell MD
[2025-03-23 14:00] VITALS: BP 115/69; PULSE 70; RESP 15; TEMP 36.3; O2SAT 98
--- NOTE | 2025-03-23 14:57 | PC.SS ---
Late entry, rounding note: Consultation with [facility] Dept. pending. Patient to discharge home when medically clear.
[2025-03-23 22:00] VITALS: BP 112/75; PULSE 75; RESP 17; TEMP 36.2; O2SAT 97
[2025-03-24] MEDS: ISONIAZID 300 MG TABLET PO (05:27)
[2025-03-24 06:00] VITALS: BP 90/61; PULSE 84; RESP 17; TEMP 36.1; O2SAT 96
[2025-03-24 07:30] VITALS: BP 99/62; PULSE 76; RESP 18; TEMP 36.3; O2SAT 96
[2025-03-24] MEDS: PYRIDOXINE 50 MG TABLET PO (08:48)
[2025-03-24] MEDS: ETHAMBUTOL HCL 400 MG TABLET 1200 MG PO (08:49)
[2025-03-24] MEDS: PYRAZINAMIDE 500 MG TABLET 1500 MG PO (08:49)
[2025-03-24] MEDS: rifAMPin 300 MG CAPSULE 600 MG PO (08:53)
--- NOTE | 2025-03-24 15:15 | PD.RESPRO ---
Documentation for date of: 03/24/25 Subjective Subjective Interval history: Patient examined at bedside. No events overnight, no major complaints. Vitals stable. Patient was updated on findings and plan. His aunt is pending TB testing as well. AFB stains have been positive thus far. Continue to repeat sputum samples. Continue to monitor and RIPE treatment. Exam Vital Signs Temp Pulse Resp BP Pulse Ox O2 Del Method 97.4 F 76 18 99/62 96 Room Air 03/24/25 07:30 03/24/25 07:30 03/24/25 07:30 03/24/25 07:30 03/24/25 07:30 03/24/25 07:30 Narrative Exam General: Yound male, sleeping, No acute distress, cooperative HEENT: NCAT, No JVD noted. Mucosa moist. Pupils are equal and reactive to light bilaterally Cardiovascular: Normal S1 and S2. Regular rate and rhythm. Respiratory: Lungs are clear to auscultation bilaterally. No wheezing or crackles heard. Abdomen: Soft, nontender, not distended, normal bowel sounds. Skin: Warm to touch, dry, no rashes noted Musculoskeletal: No gross injuries. Able to move all 4 extremities. No pitting edema Neuro: Alert and oriented x3. No focal neuro deficits. Psych: Normal affect and mood Objective Labs 03/25/25 05:05 03/25/25 05:05 Quality Measures Quality Measures none Assessment & Plan Assessment Current Active Medications: Generic Name Dose Route Start Last Admin Trade Name Freq PRN Reason Stop Dose Admin Acetaminophen 650 mg 02/25/25 18:32 02/25/25 18:57 Acetaminophen 325 Mg Tablet PO 03/27/25 18:31 650 mg Q6H PRN Administration pain 1-3 and Fever >100.4 Ethambutol HCl 1,200 mg 03/05/25 09:00 03/24/25 08:49 Ethambutol Hcl 400 Mg Tablet PO 04/04/25 08:59 1,200 mg QDAY YUMIKO Administration Isoniazid 300 mg 03/10/25 11:00 03/24/25 05:27 Isoniazid 300 Mg Tablet PO 04/09/25 10:59 300 mg ACBR YUMIKO Administration Ondansetron HCl 4 mg 02/25/25 18:32 Ondansetron Inj 2 Mg/Ml Inj 2 Ml IV 03/27/25 18:31 Q6H PRN NAUSEA OR VOMITING Protocol Pyrazinamide 1,500 mg 03/05/25 09:00 03/24/25 08:49 Pyrazinamide 500 Mg Tablet PO 04/04/25 08:59 1,500 mg QDAY YUMIKO Administration Pyridoxine HCl 50 mg 03/02/25 09:00 03/24/25 08:48 Pyridoxine 50 Mg Tablet PO 03/02/26 12:00 50 mg QDAY YUMIKO Administration Rifampin 600 mg 03/05/25 09:00 03/24/25 08:53 Rifampin 300 Mg Capsule PO 04/04/25 08:59 600 mg QDAY YUMIKO Administration Plan 24-year-old male with no relevant past medical history was admitted to the hospital 02/25/2025 for TB rule out in the setting of cavitary lesions on imaging. #Active Tuberculosis #Bilateral cavitary lesions #Shortness of breath, resolved #Cough, improving #Sore throat, resolved #Leukocytosis Patient came in with complaints of some shortness of breath along with cough and sore throat for the past 5 months. Patient denied any night sweats or hemoptysis. Patient's chest CT that showed severe cavitary disease in both lungs and chest x-ray also showed cavitary lesions in both lungs. Patient states that he has not had any sick contacts. Patient does not recall having any prior pulmonary issues in the past when he was a child. Patient's WBCs were 18.2 initially, downtrending with no fevers Cocci negative Blood culture negative and sputum mixed oral ashley AFB's have been positive thus far on repeat AFBs Discontinued azithromycin and Rocephin (02/25/2025?02/27/2025), Vancomycin (02/26/2025-02/27/2025) and Fluconazole (02/26/2025-03/01/2025) Plan: -sputum samples from 03/20 are pending RIPE (02/27/2025-) -Isoniazid 300mgQD -Ethambutol 1200mg QD -Pyrazinamide 1500mg QD -Rifampin 600mg QD Pyridoxine 50 mg daily Isolation and airborne precautions ID consulted, appreciate recommendations #Thrombocytosis Patient's platelets were 828 initially Most likely hemoconcentration as patient did appear to be a little bit dehydrated. -Will continue to monitor Disposition: Pending negative AFB. Diet: regular GI prophylaxis: not indicated DVT prophylaxis: lovenox Code:Full code Patient's care and plan discussed with my attending Dr. Santillan. Jumana Oliveira, PGY1 Attending Provider Attestation/Addendum I have examined the patient, reviewed labs and imaging findings, discussed the case with the resident(s), and reviewed entered orders. I agree with the plan of care as outlined in this note, with these additional summaries/recommendations: Patient seen at bedside. No acute overnight events. Patient has no new complaints today. Pending clearance of AFBs before patient can be medically cleared for discharge. Continue RIPE therapy for active tuberculosis. Please see residents note for additional details and management. Dr. Tyrell MD
[2025-03-24 22:00] VITALS: BP 103/68; PULSE 75; RESP 17; TEMP 36.4; O2SAT 95
[2025-03-25] MEDS: ISONIAZID 300 MG TABLET PO (05:36)
[2025-03-25 05:59] LABS: Basophils # (Auto) 0.1 Thou/mm3 (0.0-0.2); Basophils % (Auto) 1 % (0-2.5); Eosinophils # (Auto) 1.2 Thou/mm3 (0.0-0.5); Eosinophils % (Auto) 12 % (0-10); Hematocrit 39.7 % (41.0-53.0); Hemoglobin 12.8 g/dL (13.5-16.0); Immature Granulocytes % (Auto) 1 % (0-0); Immature Granulocytes Auto 0.05 Thou/mm3 (0.00-0.00); Lymphocytes % (Auto) 28 % (10-50); Mean Corpuscular HGB Conc 32.2 g/dl (31.0-37.0); Mean Corpuscular Hemoglobin 26.1 pg (25.0-35.0); Mean Corpuscular Volume 81 fL (80-100); Monocytes # (Auto) 1.2 Thou/mm3 (0.0-0.8); Monocytes % (Auto) 12 % (0-12); Neutrophils % (Auto) 47 % (37-80); Nucleated Red Blood Cell % 0 /100 WBC (0); Platelet Count 419 Thou/mm3 (140-440); RDW Standard Deviation 50.9 fL (35.1-43.9); Red Blood Count 4.91 Miln/mm3 (4.50-5.90); White Blood Count 10.6 Thou/mm3 (3.8-10.6)
[2025-03-25 06:00] VITALS: BP 104/64; PULSE 92; RESP 18; TEMP 36.4; O2SAT 96
[2025-03-25 06:23] LABS: Alanine Aminotransferase 18 U/L (10-49); Albumin, Serum 3.8 gm/dL (3.5-5.0); Albumin/Globulin Ratio 1.3 (1.2-2.2); Alkaline Phosphatase 65 U/L (46-116); Anion Gap 12 (7-16); BUN/Creatinine Ratio 23 Ratio (12-20); Bilirubin,Total 0.2 mg/dL (0.3-1.2); Blood Urea Nitrogen 18 mg/dL (9-23); Calcium 8.7 mg/dL (8.3-10.6); Calcium (Corrected) 8.9 mg/dL (8.5-10.1); Carbon Dioxide 26.5 mMol/L (20.0-31.0); Chloride 102 mMol/L (98-107); Creatinine (Component) 0.8 mg/dL (0.6-1.3); Estimated Creatinine Clearance 127.4 mL/min (>60); Globulin 2.9 gm/dL (2.3-3.5); Glucose 102 mg/dL (74-106); Osmolality,Calculated 281 (275-295); Potassium 4.3 mMol/L (3.4-5.1); Sodium 140 mMol/L (136-145); Total Protein 6.7 gm/dL (5.7-8.2); eGFR > 60 See Note
[2025-03-25] MEDS: PYRAZINAMIDE 500 MG TABLET 1500 MG PO (09:31)
[2025-03-25] MEDS: rifAMPin 300 MG CAPSULE 600 MG PO (09:31)
[2025-03-25] MEDS: PYRIDOXINE 50 MG TABLET PO (09:31)
[2025-03-25] MEDS: ETHAMBUTOL HCL 400 MG TABLET 1200 MG PO (09:32)
--- NOTE | 2025-03-25 09:36 | PC.IP ---
Contacted Manuela BUSTOS at [facility], for an update on the patient's discharge status. Per Manuela BUSTOS, the QFT results for the individual the patient will be residing with are still pending. The test was collected sometime last week. Manuela BUSTOS stated she will notified the IP department once the the patient is cleared for discharge.
--- NOTE | 2025-03-25 11:58 | PC.SS ---
Rounding note: Patient's aunt needs to be tested before patient can return home.
[2025-03-25 14:00] VITALS: BP 104/62; PULSE 89; RESP 18; TEMP 36.4; O2SAT 96
--- NOTE | 2025-03-25 14:06 | PD.IDPROG ---
Subjective Subjective Interval history: afb's not worse. suggest contacting health dept for discharge planning as ip not that aggressive consult on record from 03/23 likely for a different pt. not sure how it got to him. Exam Vital Signs Temp Pulse Resp BP Pulse Ox O2 Del Method 97.5 F 92 18 104/64 96 Room Air 03/25/25 06:00 03/25/25 06:00 03/25/25 06:00 03/25/25 06:00 03/25/25 06:00 03/25/25 06:00 Narrative Exam not ill appearing. sounds like home has been checked out by health dept and while he is admitted, a cousin is staying there. ukrainian speaking resident communicated with pt. Objective - Internal Medicine Labs 03/25/25 05:05 03/25/25 05:05 Labs: Laboratory Results - last 24 hr 03/20/25 03/25/25 03/25/25 10:32 05:05 05:23 WBC 10.6 RBC 4.91 Hgb 12.8 L Hct 39.7 L MCV 81 MCH 26.1 MCHC 32.2 RDW Std Deviation 50.9 H Plt Count 419 D Neut % (Auto) 47 Lymph % (Auto) 28 [place] % (Auto) 12 Eos % (Auto) 12 H Baso % (Auto) 1 Neut # (Auto) 5.0 Lymph # (Auto) 3.0 [place] # (Auto) 1.2 H Eos # (Auto) 1.2 H Baso # (Auto) 0.1 Immature Gran # (Auto) 0.05 H Absolute Nucleated RBC 0.00 Immature Gran % 1 H Nucleated RBC % 0 Sodium 140 Potassium 4.3 Chloride 102 Carbon Dioxide 26.5 Anion Gap 12 BUN 18 Creatinine 0.8 Estim Creat Clear Calc 127.4 eGFR > 60 BUN/Creatinine Ratio 23 H Glucose 102 Calculated Osmolality 281 Calcium 8.7 Corrected Calcium 8.9 Total Bilirubin 0.2 L ALT 18 Alkaline Phosphatase 65 Total Protein 6.7 Albumin 3.8 Globulin 2.9 Albumin/Globulin Ratio 1.3 Hepatitis C Antibody Cancelled Mycobacterial Culture See Sep Rpt Assessment & Plan A&P Narrative cavitary lung disease on chest imaging. qtf and afb's pos mtb naat noted. limited pmh he is not coughing, so you may have trouble getting sputums. testing of outpt contacts is at the discretion of health department will check in on Sunday if he remains in house weekly cbc, cmp ok weekly while in house. but if you insist on more often. that is a choice ok to work with health dept on release. if he lives alone, they can do f/u as outpt in his home if that is allowed. if they say no, will order sputums this weekend. Time Spent With Patient Time: Total time spent is greater than 50% in coordination of care (as documented) at patient's floor/unit and/or counseling patient:
[2025-03-25 14:18] LABS: C-Reactive Protein 1.6 mg/dL (0.0-0.9)
--- NOTE | 2025-03-25 16:33 | ESPR_ITS ---
Documentation for date of: 03/25/25 Subjective Subjective Interval history: Patient examined at bedside. No events overnight, no major complaints. Vitals stable. Patient was updated on findings and plan. His aunt is pending TB testing as well. AFB stains have been positive thus far. Needs hepatitis B/C and CRP before discharge. Per [facility], he can be discharged and stay in isolation but pending family member's TB status. Continue to monitor and RIPE treatment. Exam Vital Signs Temp Pulse Resp BP Pulse Ox O2 Del Method 97.5 F 89 18 104/62 96 Room Air 03/25/25 14:00 03/25/25 14:00 03/25/25 14:00 03/25/25 14:00 03/25/25 14:03/25/25 14:00 Narrative Exam General: Yound male, sleeping, No acute distress, cooperative HEENT: NCAT, No JVD noted. Mucosa moist. Pupils are equal and reactive to light bilaterally Cardiovascular: Normal S1 and S2. Regular rate and rhythm. Respiratory: Lungs are clear to auscultation bilaterally. No wheezing or crackles heard. Abdomen: Soft, nontender, not distended, normal bowel sounds. Skin: Warm to touch, dry, no rashes noted Musculoskeletal: No gross injuries. Able to move all 4 extremities. No pitting edema Neuro: Alert and oriented x3. No focal neuro deficits. Psych: Normal affect and mood Objective Labs 03/25/25 05:05 03/25/25 05:05 Labs: Laboratory Results - last 24 hr 03/20/25 03/25/25 03/25/25 10:32 05:05 05:23 WBC 10.6 RBC 4.91 Hgb 12.8 L Hct 39.7 L MCV 81 MCH 26.1 MCHC 32.2 RDW Std Deviation 50.9 H Plt Count 419 D Neut % (Auto) 47 Lymph % (Auto) 28 [place] % (Auto) 12 Eos % (Auto) 12 H Baso % (Auto) 1 Neut # (Auto) 5.0 Lymph # (Auto) 3.0 [place] # (Auto) 1.2 H Eos # (Auto) 1.2 H Baso # (Auto) 0.1 Immature Gran # (Auto) 0.05 H Absolute Nucleated RBC 0.00 Immature Gran % 1 H Nucleated RBC % 0 Sodium 140 Potassium 4.3 Chloride 102 Carbon Dioxide 26.5 Anion Gap 12 BUN 18 Creatinine 0.8 Estim Creat Clear Calc 127.4 eGFR > 60 BUN/Creatinine Ratio 23 H Glucose 102 Calculated Osmolality 281 Calcium 8.7 Corrected Calcium 8.9 Total Bilirubin 0.2 L ALT 18 Alkaline Phosphatase 65 C-Reactive Prot, Quant 1.6 H Total Protein 6.7 Albumin 3.8 Globulin 2.9 Albumin/Globulin Ratio 1.3 Hepatitis C Antibody Cancelled Mycobacterial Culture See Sep Rpt Quality Measures Quality Measures none Assessment & Plan Assessment Current Active Medications: Generic Name Dose Route Start Last Admin Trade Name Freq PRN Reason Stop Dose Admin Acetaminophen 650 mg 02/25/25 18:32 02/25/25 18:57 Acetaminophen 325 Mg Tablet PO 03/27/25 18:31 650 mg Q6H PRN Administration pain 1-3 and Fever >100.4 Ethambutol HCl 1,200 mg 03/05/25 09:00 03/25/25 09:32 Ethambutol Hcl 400 Mg Tablet PO 04/04/25 08:59 1,200 mg QDAY YUMIKO Administration Isoniazid 300 mg 03/10/25 11:00 03/25/25 05:36 Isoniazid 300 Mg Tablet PO 04/09/25 10:59 300 mg ACBR YUMIKO Administration Ondansetron HCl 4 mg 02/25/25 18:32 Ondansetron Inj 2 Mg/Ml Inj 2 Ml IV 03/27/25 18:31 Q6H PRN NAUSEA OR VOMITING Protocol Pyrazinamide 1,500 mg 03/05/25 09:00 03/25/25 09:31 Pyrazinamide 500 Mg Tablet PO 04/04/25 08:59 1,500 mg QDAY YUMIKO Administration Pyridoxine HCl 50 mg 03/02/25 09:00 03/25/25 09:31 Pyridoxine 50 Mg Tablet PO 03/02/26 12:00 50 mg QDAY YUMIKO Administration Rifampin 600 mg 03/05/25 09:00 03/25/25 09:31 Rifampin 300 Mg Capsule PO 04/04/25 08:59 600 mg QDAY YUMIKO Administration Plan 24-year-old male with no relevant past medical history was admitted to the hospital 02/25/2025 for TB rule out in the setting of cavitary lesions on imaging. #Active Tuberculosis #Bilateral cavitary lesions #Shortness of breath, resolved #Cough, improving #Sore throat, resolved #Leukocytosis Patient came in with complaints of some shortness of breath along with cough and sore throat for the past 5 months. Patient denied any night sweats or hemoptysis. Patient's chest CT that showed severe cavitary disease in both lungs and chest x-ray also showed cavitary lesions in both lungs. Patient states that he has not had any sick contacts. Patient does not recall having any prior pulmonary issues in the past when he was a child. Patient's WBCs were 18.2 initially, downtrending with no fevers Cocci negative Blood culture negative and sputum mixed oral ashley AFB's have been positive thus far on repeat AFBs Discontinued azithromycin and Rocephin (02/25/2025?02/27/2025), Vancomycin (02/26/2025-02/27/2025) and Fluconazole (02/26/2025-03/01/2025) Plan: -Needs hepatitis B/C and CRP before discharge. Per [facility], he can be discharged and stay in isolation but pending family member's TB status. RIPE (02/27/2025-) -Isoniazid 300mgQD -Ethambutol 1200mg QD -Pyrazinamide 1500mg QD -Rifampin 600mg QD Pyridoxine 50 mg daily Isolation and airborne precautions ID consulted, appreciate recommendations #Thrombocytosis-resolved Disposition: Pending Hepatitis test, CRP, and family member results Diet: regular GI prophylaxis: not indicated DVT prophylaxis: lovenox Code:Full code Patient's care and plan discussed with my attending Dr. Santillan. Jumana Oliveira, PGY1 Attending Provider Attestation/Addendum I have examined the patient, reviewed labs and imaging findings, discussed the case with the resident(s), and reviewed entered orders. I agree with the plan of care as outlined in this note, with these additional summaries/recommendations: Patient seen at bedside. No acute overnight events. Continue ripe therapy for active tuberculosis. AFBs from 03/20/2025 returned today still showing acid-fast bacilli with 1-10 per field. We are working with our in-house infection control health department for discharge planning. Patient is likely candidate for home isolation. We ordered hepatitis B and CRP at the recommendation of health department. Patient's sister who lives at home is currently being tested and can likely be sent home once results are available. Patient updated on the plan and in agreement. All questions answered to satisfaction. Please see residents note for additional details and management. Dr. Tyrell MD
[2025-03-25 17:01] LABS: Hepatitis A Antibody IgM Non Reactive (Non React); Hepatitis B Core Antibody IgM Non Reactive (Non React); Hepatitis B Surface Antigen Non Reactive (Non React); Hepatitis C Antibody Non Reactive (Non React)
[2025-03-25 22:00] VITALS: BP 101/73; PULSE 78; RESP 18; TEMP 36.4; O2SAT 96
[2025-03-26 06:00] VITALS: BP 111/59; PULSE 85; RESP 17; TEMP 36.1; O2SAT 96
[2025-03-26] MEDS: ISONIAZID 300 MG TABLET PO (06:12)
[2025-03-26] MEDS: ETHAMBUTOL HCL 400 MG TABLET 1200 MG PO (08:16)
[2025-03-26] MEDS: rifAMPin 300 MG CAPSULE 600 MG PO (08:16)
[2025-03-26] MEDS: PYRAZINAMIDE 500 MG TABLET 1500 MG PO (08:16)
[2025-03-26] MEDS: PYRIDOXINE 50 MG TABLET PO (08:17)
--- NOTE | 2025-03-26 11:56 | PC.IP ---
Pt.'s MAR for the period of 03/19/2025 to 03/26/2025, along with lab results for HIV, Hep. B, and Hep C faxed to Alis BUSTOS [facility].
--- NOTE | 2025-03-26 13:04 | PC.SS ---
SS follow up note; AFB's pending. Patient's aunt needs to be tested before patient can return home.
[2025-03-26 14:35] VITALS: BP 118/68; PULSE 78; RESP 16; TEMP 36.5; O2SAT 96
[2025-03-26 15:15] VITALS: BMI 25.0
--- NOTE | 2025-03-26 15:25 | PD.RESPRO ---
Documentation for date of: 03/26/25 Subjective Subjective Interval history: Patient examined at bedside. No events overnight, no major complaints. Vitals stable. Patient was updated on findings and plan. His aunt is pending TB testing as well. Hepatitis B/C serology negative. CRP 1.6 Per county, he can be discharged and stay in isolation but pending family member's TB status. Continue to monitor and RIPE treatment. Exam Vital Signs Temp Pulse Resp BP Pulse Ox O2 Del Method 97.0 F 85 17 111/59 L 96 Room Air 03/26/25 06:00 03/26/25 06:00 03/26/25 06:00 03/26/25 06:00 03/26/25 06:00 03/26/25 06:00 Narrative Exam General: Yound male, sleeping, No acute distress, cooperative HEENT: NCAT, No JVD noted. Mucosa moist. Pupils are equal and reactive to light bilaterally Cardiovascular: Normal S1 and S2. Regular rate and rhythm. Respiratory: Lungs are clear to auscultation bilaterally. No wheezing or crackles heard. Abdomen: Soft, nontender, not distended, normal bowel sounds. Skin: Warm to touch, dry, no rashes noted Musculoskeletal: No gross injuries. Able to move all 4 extremities. No pitting edema Neuro: Alert and oriented x3. No focal neuro deficits. Psych: Normal affect and mood Objective Labs 03/25/25 05:05 03/25/25 05:05 Labs: Laboratory Results - last 24 hr 03/19/25 03/23/25 03/25/25 11:15 01:30 05:23 Hepatitis A IgM Ab Non Reactive Hep Bs Antigen Non Reactive Hep B Core IgM Ab Non Reactive Hepatitis C Antibody Non Reactive Mycobacterial Culture See Sep Rpt See Sep Rpt Quality Measures Quality Measures none Assessment & Plan Assessment Current Active Medications: Generic Name Dose Route Start Last Admin Trade Name Freq PRN Reason Stop Dose Admin Acetaminophen 650 mg 02/25/25 18:32 02/25/25 18:57 Acetaminophen 325 Mg Tablet PO 03/27/25 18:31 650 mg Q6H PRN Administration pain 1-3 and Fever >100.4 Ethambutol HCl 1,200 mg 03/05/25 09:00 03/26/25 08:16 Ethambutol Hcl 400 Mg Tablet PO 04/04/25 08:59 1,200 mg QDAY YUMIKO Administration Isoniazid 300 mg 03/10/25 11:00 03/26/25 06:12 Isoniazid 300 Mg Tablet PO 04/09/25 10:59 300 mg ACBR YUMIKO Administration Ondansetron HCl 4 mg 02/25/25 18:32 Ondansetron Inj 2 Mg/Ml Inj 2 Ml IV 03/27/25 18:31 Q6H PRN NAUSEA OR VOMITING Protocol Pyrazinamide 1,500 mg 03/05/25 09:00 03/26/25 08:16 Pyrazinamide 500 Mg Tablet PO 04/04/25 08:59 1,500 mg QDAY YUMIKO Administration Pyridoxine HCl 50 mg 03/02/25 09:00 03/26/25 08:17 Pyridoxine 50 Mg Tablet PO 03/02/26 12:00 50 mg QDAY YUMIKO Administration Rifampin 600 mg 03/05/25 09:00 03/26/25 08:16 Rifampin 300 Mg Capsule PO 04/04/25 08:59 600 mg QDAY YUMIKO Administration Plan 24-year-old male with no relevant past medical history was admitted to the hospital 02/25/2025 for TB rule out in the setting of cavitary lesions on imaging. #Active Tuberculosis #Bilateral cavitary lesions #Shortness of breath, resolved #Cough, improving #Sore throat, resolved #Leukocytosis Patient came in with complaints of some shortness of breath along with cough and sore throat for the past 5 months. Patient denied any night sweats or hemoptysis. Patient's chest CT that showed severe cavitary disease in both lungs and chest x-ray also showed cavitary lesions in both lungs. Patient states that he has not had any sick contacts. Patient does not recall having any prior pulmonary issues in the past when he was a child. Patient's WBCs were 18.2 initially, downtrending with no fevers Cocci negative Blood culture negative and sputum mixed oral ashley AFB's have been positive thus far on repeat AFBs Discontinued azithromycin and Rocephin (02/25/2025?02/27/2025), Vancomycin (02/26/2025-02/27/2025) and Fluconazole (02/26/2025-03/01/2025) Hepatitis B/C serology negative. CRP 1.6 Plan: Per county, he can be discharged and stay in isolation but pending family member's TB status. RIPE (02/27/2025-) -Isoniazid 300mgQD -Ethambutol 1200mg QD -Pyrazinamide 1500mg QD -Rifampin 600mg QD Pyridoxine 50 mg daily Isolation and airborne precautions ID consulted, appreciate recommendations #Thrombocytosis-resolved Disposition: Pending family member results Diet: regular GI prophylaxis: not indicated DVT prophylaxis: lovenox Code:Full code Patient's care and plan discussed with my attending Dr. Santillan. Jumana Oliveira, PGY1 Attending Provider Attestation/Addendum I have examined the patient, reviewed labs and imaging findings, discussed the case with the resident(s), and reviewed entered orders. I agree with the plan of care as outlined in this note, with these additional summaries/recommendations: Patient seen at bedside. No acute overnight events. Continue RIPE therapy for active tuberculosis. AFBs from 03/20/2025 returned still showing acid-fast bacilli with 1-10 per field. We are working with our in-house infection control & health department for discharge planning. Patient is likely candidate for home isolation. Acute hep panel negative and CRP 1.6. Patient's sister who lives at home is currently being tested and can likely be sent home once results are available. Patient updated on the plan and in agreement. All questions answered to satisfaction. Please see residents note for additional details and management. Dr. Tyrell MD
[2025-03-26 22:00] VITALS: BP 113/64; PULSE 72; RESP 17; TEMP 36.2; O2SAT 98
[2025-03-27 06:00] VITALS: BP 115/62; PULSE 76; RESP 16; TEMP 36.2; O2SAT 97
[2025-03-27] MEDS: ISONIAZID 300 MG TABLET PO (06:49)
[2025-03-27] MEDS: PYRIDOXINE 50 MG TABLET PO (09:03)
[2025-03-27] MEDS: PYRAZINAMIDE 500 MG TABLET 1500 MG PO (09:03)
[2025-03-27] MEDS: rifAMPin 300 MG CAPSULE 600 MG PO (09:03)
--- NOTE | 2025-03-27 09:06 | PD.IDPROG ---
Subjective Subjective Interval history: sounds like primary team has interacted with health dept. 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 qtf and afb's pos mtb naat noted. 1-10 afb/hpf noted limited pmh testing of outpt contacts is at the discretion of health department will check in on Sunday if he remains in house weekly cbc, cmp ok weekly while in house. but if you insist on more often. that is a choice ok to work with health dept on release. if he lives alone, they can do f/u as outpt in his home if that is allowed. will order sputums this weekend. Time Spent With Patient Time: Total time spent is greater than 50% in coordination of care (as documented) at patient's floor/unit and/or counseling patient:
[2025-03-27] MEDS: ETHAMBUTOL HCL 400 MG TABLET 1200 MG PO (10:05)
--- NOTE | 2025-03-27 11:37 | PC.SS ---
SS follow up note; Patient is pending his aunts TB results. Patient will discharge home once confirmed.
[2025-03-27 12:30] LABS: Cult AFB Sendout- Sputum* See Sep Rpt
[2025-03-27 14:00] VITALS: BP 100/76; PULSE 85; RESP 16; TEMP 36.4; O2SAT 97
--- NOTE | 2025-03-27 15:00 | PD.RESPRO ---
Documentation for date of: 03/27/25 Subjective Subjective Interval history: Patient examined at bedside. No events overnight, no major complaints. Vitals stable. Today patient stated that he does not live with aunt but lives alone. His cousin had contact last month when dropped off at the hospital. Infection prevention team had cousin tested--results are pending. Per [facility], he can be discharged and stay in isolation but pending family member's TB status. Continue to monitor and RIPE treatment. Exam Vital Signs Temp Pulse Resp BP Pulse Ox O2 Del Method 97.1 F 76 16 115/62 97 Room Air 03/27/25 06:00 03/27/25 06:00 03/27/25 06:00 03/27/25 06:00 03/27/25 06:00 03/27/25 06:00 Narrative Exam General: Yound male, sleeping, No acute distress, cooperative HEENT: NCAT, No JVD noted. Mucosa moist. Pupils are equal and reactive to light bilaterally Cardiovascular: Normal S1 and S2. Regular rate and rhythm. Respiratory: Lungs are clear to auscultation bilaterally. No wheezing or crackles heard. Abdomen: Soft, nontender, not distended, normal bowel sounds. Skin: Warm to touch, dry, no rashes noted Musculoskeletal: No gross injuries. Able to move all 4 extremities. No pitting edema Neuro: Alert and oriented x3. No focal neuro deficits. Psych: Normal affect and mood Objective Labs 03/25/25 05:05 03/25/25 05:05 Quality Measures Quality Measures none Assessment & Plan Assessment Current Active Medications: Generic Name Dose Route Start Last Admin Trade Name Freq PRN Reason Stop Dose Admin Acetaminophen 650 mg 02/25/25 18:32 02/25/25 18:57 Acetaminophen 325 Mg Tablet PO 03/27/25 18:31 650 mg Q6H PRN Administration pain 1-3 and Fever >100.4 Ethambutol HCl 1,200 mg 03/05/25 09:00 03/27/25 10:05 Ethambutol Hcl 400 Mg Tablet PO 04/04/25 08:59 1,200 mg QDAY YUMIKO Administration Isoniazid 300 mg 03/10/25 11:00 03/27/25 06:49 Isoniazid 300 Mg Tablet PO 04/09/25 10:59 300 mg ACBR YUMIKO Administration Ondansetron HCl 4 mg 02/25/25 18:32 Ondansetron Inj 2 Mg/Ml Inj 2 Ml IV 03/27/25 18:31 Q6H PRN NAUSEA OR VOMITING Protocol Pyrazinamide 1,500 mg 03/05/25 09:00 03/27/25 09:03 Pyrazinamide 500 Mg Tablet PO 04/04/25 08:59 1,500 mg QDAY YUMIKO Administration Pyridoxine HCl 50 mg 03/02/25 09:00 03/27/25 09:03 Pyridoxine 50 Mg Tablet PO 03/02/26 12:00 50 mg QDAY YUMIKO Administration Rifampin 600 mg 03/05/25 09:00 03/27/25 09:03 Rifampin 300 Mg Capsule PO 04/04/25 08:59 600 mg QDAY YUMIKO Administration Plan 24-year-old male with no relevant past medical history was admitted to the hospital 02/25/2025 for TB rule out in the setting of cavitary lesions on imaging. #Active Tuberculosis #Bilateral cavitary lesions #Shortness of breath, resolved #Cough, improving #Sore throat, resolved #Leukocytosis Patient came in with complaints of some shortness of breath along with cough and sore throat for the past 5 months. Patient denied any night sweats or hemoptysis. Patient's chest CT that showed severe cavitary disease in both lungs and chest x-ray also showed cavitary lesions in both lungs. Patient states that he has not had any sick contacts. Patient does not recall having any prior pulmonary issues in the past when he was a child. Patient's WBCs were 18.2 initially, downtrending with no fevers Cocci negative Blood culture negative and sputum mixed oral [employer] AFB's have been positive thus far on repeat AFBs Discontinued azithromycin and Rocephin (02/25/2025?02/27/2025), Vancomycin (02/26/2025-02/27/2025) and Fluconazole (02/26/2025-03/01/2025) Hepatitis B/C serology negative. CRP 1.6 Plan: Per county, he can be discharged and stay in isolation but pending family member's TB status. His cousin's results are pending. RIPE (02/27/2025-) -Isoniazid 300mgQD -Ethambutol 1200mg QD -Pyrazinamide 1500mg QD -Rifampin 600mg QD Pyridoxine 50 mg daily Isolation and airborne precautions ID consulted, appreciate recommendations #Thrombocytosis-resolved Disposition: DC Pending family member results Diet: regular GI prophylaxis: not indicated DVT prophylaxis: lovenox Code:Full code Patient's care and plan discussed with my attending Dr. Santillan. Jumana Oliveira, PGY1 Attending Provider Attestation/Addendum I have examined the patient, reviewed labs and imaging findings, discussed the case with the resident(s), and reviewed entered orders. I agree with the plan of care as outlined in this note, with these additional summaries/recommendations: Patient seen at bedside. No acute overnight events. Patient has no new symptoms to report today. Continue RIPE therapy for active tuberculosis. AFBs from 03/20/2025 returned still showing acid-fast bacilli with 1-10 per field. We are working with our in-house infection control & health department for discharge planning. Patient is likely candidate for home isolation. Acute hep panel negative and CRP 1.6. Patient's sister who lives at home is currently being tested and can likely be sent home once results are available. Patient updated on the plan and in agreement. All questions answered to satisfaction. Please see residents note for additional details and management. Dr. Tyrell MD
[2025-03-27 22:00] VITALS: BP 114/69; PULSE 80; RESP 17; TEMP 36.3; O2SAT 99
--- NOTE | 2025-03-28 00:58 | PC.RT ---
2nd Sputum sample collected and sent to lab for analysis.
[2025-03-28 01:02] LABS: Cult AFB Sendout- Sputum* See Sep Rpt
--- NOTE | 2025-03-28 05:18 | PC.RT ---
3rd sputum culture collected at this time and sent to lab for analysis.
[2025-03-28] MEDS: ISONIAZID 300 MG TABLET PO (05:32)
[2025-03-28 05:38] LABS: Cult AFB Sendout- Sputum* See Sep Rpt
[2025-03-28 06:00] VITALS: BP 115/67; PULSE 76; RESP 17; TEMP 36.3; O2SAT 99
[2025-03-28] MEDS: PYRIDOXINE 50 MG TABLET PO (08:09)
[2025-03-28] MEDS: rifAMPin 300 MG CAPSULE 600 MG PO (08:09)
[2025-03-28] MEDS: ETHAMBUTOL HCL 400 MG TABLET 1200 MG PO (08:09)
[2025-03-28] MEDS: PYRAZINAMIDE 500 MG TABLET 1500 MG PO (08:09)
[2025-03-28 08:17] VITALS: BP 128/72; PULSE 76; RESP 18; TEMP 36.3; O2SAT 99
--- NOTE | 2025-03-28 10:39 | PD.RESPRO ---
Documentation for date of: 03/28/25 Subjective Subjective Interval history: Was seen and examined at bedside. No acute overnight events. Upon our evaluation patient is hemodynamically stable, denied any shortness of breath, cough or any othe associated symptoms. Pending county clearance. Until then patient will be staying isolated and will be getting RIPE. Will close follow-up with no updates.We are closely working with in-house infection control on discharge planning Exam Vital Signs Temp Pulse Resp BP Pulse Ox O2 Del Method 97.3 F 76 18 128/72 99 Room Air 03/28/25 08:17 03/28/25 08:17 03/28/25 08:17 03/28/25 08:17 03/28/25 08:17 03/28/25 08:17 Narrative Exam General: Yound male, sleeping, No acute distress, cooperative HEENT: NCAT, No JVD noted. Mucosa moist. Pupils are equal and reactive to light bilaterally Cardiovascular: Normal S1 and S2. Regular rate and rhythm. Respiratory: Lungs are clear to auscultation bilaterally. No wheezing or crackles heard. Abdomen: Soft, nontender, not distended, normal bowel sounds. Skin: Warm to touch, dry, no rashes noted Musculoskeletal: No gross injuries. Able to move all 4 extremities. No pitting edema Neuro: Alert and oriented x3. No focal neuro deficits. Psych: Normal affect and mood Objective Labs 03/25/25 05:05 03/25/25 05:05 Quality Measures Quality Measures none Assessment & Plan Assessment Current Active Medications: Generic Name Dose Route Start Last Admin Trade Name Freq PRN Reason Stop Dose Admin Ethambutol HCl 1,200 mg 03/05/25 09:00 03/28/25 08:09 Ethambutol Hcl 400 Mg Tablet PO 04/04/25 08:59 1,200 mg QDAY YUMIKO Administration Isoniazid 300 mg 03/10/25 11:00 03/28/25 05:32 Isoniazid 300 Mg Tablet PO 04/09/25 10:59 300 mg ACBR YUMIKO Administration Pyrazinamide 1,500 mg 03/05/25 09:00 03/28/25 08:09 Pyrazinamide 500 Mg Tablet PO 04/04/25 08:59 1,500 mg QDAY YUMIKO Administration Pyridoxine HCl 50 mg 03/02/25 09:00 03/28/25 08:09 Pyridoxine 50 Mg Tablet PO 03/02/26 12:00 50 mg QDAY YUMIKO Administration Rifampin 600 mg 03/05/25 09:00 03/28/25 08:09 Rifampin 300 Mg Capsule PO 04/04/25 08:59 600 mg QDAY YUMIKO Administration Plan 24-year-old male with no relevant past medical history was admitted to the hospital 02/25/2025 for TB rule out in the setting of cavitary lesions on imaging. #Active Tuberculosis #Bilateral cavitary lesions #Shortness of breath, resolved #Cough, improving #Sore throat, resolved #Leukocytosis Patient came in with complaints of some shortness of breath along with cough and sore throat for the past 5 months. Patient denied any night sweats or hemoptysis. Patient's chest CT that showed severe cavitary disease in both lungs and chest x-ray also showed cavitary lesions in both lungs. Patient states that he has not had any sick contacts. Patient does not recall having any prior pulmonary issues in the past when he was a child. Patient's WBCs were 18.2 initially, downtrending with no fevers Cocci negative Blood culture negative and sputum mixed oral [employer] AFB's have been positive thus far on repeat AFBs Discontinued azithromycin and Rocephin (02/25/2025?02/27/2025), Vancomycin (02/26/2025-02/27/2025) and Fluconazole (02/26/2025-03/01/2025) Hepatitis B/C serology negative. CRP 1.6 Plan: Per [facility], he can be discharged and stay in isolation but pending family member's TB status. His cousin's results are pending. RIPE (02/27/2025-) -Isoniazid 300mgQD -Ethambutol 1200mg QD -Pyrazinamide 1500mg QD -Rifampin 600mg QD Pyridoxine 50 mg daily Isolation and airborne precautions ID consulted, appreciate recommendations #Thrombocytosis-resolved Disposition: DC Pending family member results and county clearance . We are closely working with in-house infection control on discharge planning Diet: regular GI prophylaxis: not indicated DVT prophylaxis: lovenox Code:Full code Patient care was discussed with attending physician Dr. Tyrell Lovell MD PGY-2 I have carefully reviewed this document. Due to imperfections in the voice software, there could be grammatical errors including phonetic/typographic errors. This in no way compromises the medical care the patient is receiving Attending Provider Attestation/Addendum I have examined the patient, reviewed labs and imaging findings, discussed the case with the resident(s), and reviewed entered orders. I agree with the plan of care as outlined in this note, with these additional summaries/recommendations: Patient seen at bedside. No acute overnight events. Patient has no new symptoms to report today and is pending [facility] recommendations for dispo home. Continue RIPE therapy for active tuberculosis. AFBs from 03/20/2025 returned still showing acid-fast bacilli with 1-10 per field. We are working with our in-house infection control & health department for discharge planning. Patient is likely candidate for home isolation. Acute hep panel negative and CRP 1.6. Patient updated on the plan and in agreement. All questions answered to satisfaction. Please see residents note for additional details and management. Dr. Tyrell MD
--- NOTE | 2025-03-28 15:37 | PC.SS ---
SS follow up note; Pending TB clearance, Patient will discharge home when medically cleared.
[2025-03-28 22:00] VITALS: BP 104/65; PULSE 68; RESP 18; TEMP 36.3; O2SAT 98
[2025-03-29] MEDS: ISONIAZID 300 MG TABLET PO (05:43)
[2025-03-29 06:00] VITALS: BP 116/68; PULSE 77; RESP 17; TEMP 36.2; O2SAT 99
[2025-03-29] MEDS: PYRAZINAMIDE 500 MG TABLET 1500 MG PO (09:02)
[2025-03-29] MEDS: ETHAMBUTOL HCL 400 MG TABLET 1200 MG PO (09:02)
[2025-03-29] MEDS: rifAMPin 300 MG CAPSULE 600 MG PO (09:02)
[2025-03-29] MEDS: PYRIDOXINE 50 MG TABLET PO (09:03)
--- NOTE | 2025-03-29 13:47 | PD.RESPRO ---
Documentation for date of: 03/29/25 Subjective Subjective Interval history: Patient examined at bedside. No events overnight, no major complaints. Vitals stable. He is medically cleared for discharge. Continuing to work with in house infection prevention for discharge plans. Per [facility], he can be discharged and stay in isolation but pending family member's TB status. Continue to monitor and RIPE treatment. Exam Vital Signs Temp Pulse Resp BP Pulse Ox O2 Del Method 97.2 F 77 17 116/68 99 Room Air 03/29/25 06:00 03/29/25 06:00 03/29/25 06:00 03/29/25 06:00 03/29/25 06:00 03/29/25 06:00 Narrative Exam General: Yound male, sleeping, No acute distress, cooperative HEENT: NCAT, No JVD noted. Mucosa moist. Pupils are equal and reactive to light bilaterally Cardiovascular: Normal S1 and S2. Regular rate and rhythm. Respiratory: Lungs are clear to auscultation bilaterally. No wheezing or crackles heard. Abdomen: Soft, nontender, not distended, normal bowel sounds. Skin: Warm to touch, dry, no rashes noted Musculoskeletal: No gross injuries. Able to move all 4 extremities. No pitting edema Neuro: Alert and oriented x3. No focal neuro deficits. Psych: Normal affect and mood Objective Labs 03/30/25 04:38 03/30/25 04:38 Quality Measures Quality Measures none Assessment & Plan Assessment Current Active Medications: Generic Name Dose Route Start Last Admin Trade Name Freq PRN Reason Stop Dose Admin Ethambutol HCl 1,200 mg 03/05/25 09:00 03/29/25 09:02 Ethambutol Hcl 400 Mg Tablet PO 04/04/25 08:59 1,200 mg QDAY YUMIKO Administration Isoniazid 300 mg 03/10/25 11:00 03/29/25 05:43 Isoniazid 300 Mg Tablet PO 04/09/25 10:59 300 mg ACBR YUMIKO Administration Pyrazinamide 1,500 mg 03/05/25 09:00 03/29/25 09:02 Pyrazinamide 500 Mg Tablet PO 04/04/25 08:59 1,500 mg QDAY YUMIKO Administration Pyridoxine HCl 50 mg 03/02/25 09:00 03/29/25 09:03 Pyridoxine 50 Mg Tablet PO 03/02/26 12:00 50 mg QDAY YUMIKO Administration Rifampin 600 mg 03/05/25 09:00 03/29/25 09:02 Rifampin 300 Mg Capsule PO 04/04/25 08:59 600 mg QDAY YUMIKO Administration Plan 24-year-old male with no relevant past medical history was admitted to the hospital 02/25/2025 for TB rule out in the setting of cavitary lesions on imaging. #Active Tuberculosis #Bilateral cavitary lesions #Shortness of breath, resolved #Cough, improving #Sore throat, resolved #Leukocytosis Patient came in with complaints of some shortness of breath along with cough and sore throat for the past 5 months. Patient denied any night sweats or hemoptysis. Patient's chest CT that showed severe cavitary disease in both lungs and chest x-ray also showed cavitary lesions in both lungs. Patient states that he has not had any sick contacts. Patient does not recall having any prior pulmonary issues in the past when he was a child. Patient's WBCs were 18.2 initially, downtrending with no fevers Cocci negative Blood culture negative and sputum mixed oral ashley AFB's have been positive thus far on repeat AFBs Discontinued azithromycin and Rocephin (02/25/2025?02/27/2025), Vancomycin (02/26/2025-02/27/2025) and Fluconazole (02/26/2025-03/01/2025) Hepatitis B/C serology negative. CRP 1.6 Plan: Per [facility], he can be discharged and stay in isolation but pending family member's TB status. His cousin's results are pending. RIPE (02/27/2025-) -Isoniazid 300mgQD -Ethambutol 1200mg QD -Pyrazinamide 1500mg QD -Rifampin 600mg QD Pyridoxine 50 mg daily Isolation and airborne precautions ID consulted, appreciate recommendations #Thrombocytosis-resolved Disposition: DC Pending family member results and county clearance . We are closely working with in-house infection control on discharge planning Diet: regular GI prophylaxis: not indicated DVT prophylaxis: lovenox Code:Full code Patient care was discussed with attending physician Dr. Tyrell Oliveira, PGY1 Attending Provider Attestation/Addendum I have examined the patient, reviewed labs and imaging findings, discussed the case with the resident(s), and reviewed entered orders. I agree with the plan of care as outlined in this note, with these additional summaries/recommendations: Patient seen at bedside. No acute overnight events. Continue RIPE therapy for active tuberculosis. Patient is pending disposition from [facility] to continue RIPE therapy at home and self isolation. We will send additional AFBs if patient remains hospitalized this week. Patient updated on the plan and in agreement. All questions answered to satisfaction. Please see residents note for additional details and management. Dr. Tyrell MD
[2025-03-29 13:52] VITALS: BP 122/64; PULSE 78; RESP 17; TEMP 36.2; O2SAT 99
[2025-03-29 22:00] VITALS: BP 100/74; PULSE 81; RESP 15; TEMP 36.6; O2SAT 96
[2025-03-30] MEDS: ISONIAZID 300 MG TABLET PO (05:50)
[2025-03-30 05:59] LABS: Basophils # (Auto) 0.1 Thou/mm3 (0.0-0.2); Basophils % (Auto) 1 % (0-2.5); Eosinophils # (Auto) 1.1 Thou/mm3 (0.0-0.5); Eosinophils % (Auto) 9 % (0-10); Hematocrit 40.6 % (41.0-53.0); Hemoglobin 13.3 g/dL (13.5-16.0); Immature Granulocytes % (Auto) 0 % (0-0); Immature Granulocytes Auto 0.04 Thou/mm3 (0.00-0.00); Lymphocytes # (Auto) 2.7 Thou/mm3 (1.0-4.8); Lymphocytes % (Auto) 23 % (10-50); Mean Corpuscular HGB Conc 32.8 g/dl (31.0-37.0); Mean Corpuscular Hemoglobin 26.4 pg (25.0-35.0); Mean Corpuscular Volume 81 fL (80-100); Monocytes # (Auto) 1.4 Thou/mm3 (0.0-0.8); Monocytes % (Auto) 12 % (0-12); Neutrophils # (Auto) 6.6 Thou/mm3 (1.8-7.7); Neutrophils % (Auto) 56 % (37-80); Nucleated Red Blood Cell % 0 /100 WBC (0); Platelet Count 382 Thou/mm3 (140-440); RDW Standard Deviation 50.7 fL (35.1-43.9); Red Blood Count 5.04 Miln/mm3 (4.50-5.90); White Blood Count 11.9 Thou/mm3 (3.8-10.6)
[2025-03-30 06:00] VITALS: BP 99/63; PULSE 73; RESP 15; TEMP 36.1; O2SAT 97
[2025-03-30 06:12] LABS: Alanine Aminotransferase 18 U/L (10-49); Albumin, Serum 4.1 gm/dL (3.5-5.0); Albumin/Globulin Ratio 1.4 (1.2-2.2); Alkaline Phosphatase 67 U/L (46-116); Anion Gap 10 (7-16); Aspartate Amino Transferase 21 U/L (0-34); BUN/Creatinine Ratio 18 Ratio (12-20); Bilirubin,Total 0.2 mg/dL (0.3-1.2); Blood Urea Nitrogen 16 mg/dL (9-23); Calcium 9.2 mg/dL (8.3-10.6); Calcium (Corrected) 9.2 mg/dL (8.5-10.1); Chloride 101 mMol/L (98-107); Creatinine (Component) 0.9 mg/dL (0.6-1.3); Estimated Creatinine Clearance 113.2 mL/min (>60); Globulin 2.9 gm/dL (2.3-3.5); Glucose 100 mg/dL (74-106); Osmolality,Calculated 280 (275-295); Potassium 3.9 mMol/L (3.4-5.1); Sodium 140 mMol/L (136-145); eGFR > 60 See Note
[2025-03-30 08:44] VITALS: BP 107/61; PULSE 93; RESP 18; TEMP 36.1; O2SAT 94
--- NOTE | 2025-03-30 09:16 | ESPR_ITS ---
Subjective Subjective Interval history: afb less than 1/hp noted on smear from early sunday am Exam Vital Signs Temp Pulse Resp BP Pulse Ox O2 Del Method 97.0 F 93 18 107/61 94 L Room Air 03/30/25 08:44 03/30/25 08:44 03/30/25 08:44 03/30/25 08:44 03/30/25 08:44 03/30/25 08:44 Narrative Exam limited visit today Objective - Internal Medicine Labs 03/30/25 04:38 03/30/25 04:38 Labs: Laboratory Results - last 24 hr 03/27/25 03/30/25 12:00 04:38 WBC 11.9 H RBC 5.04 Hgb 13.3 L Hct 40.6 L MCV 81 MCH 26.4 MCHC 32.8 RDW Std Deviation 50.7 H Plt Count 382 D Neut % (Auto) 56 Lymph % (Auto) 23 [place] % (Auto) 12 Eos % (Auto) 9 Baso % (Auto) 1 Neut # (Auto) 6.6 Lymph # (Auto) 2.7 [place] # (Auto) 1.4 H Eos # (Auto) 1.1 H Baso # (Auto) 0.1 Immature Gran # (Auto) 0.04 H Absolute Nucleated RBC 0.00 Immature Gran % 0 Nucleated RBC % 0 Sodium 140 Potassium 3.9 Chloride 101 Carbon Dioxide 29.0 Anion Gap 10 BUN 16 Creatinine 0.9 Estim Creat Clear Calc 113.2 eGFR > 60 BUN/Creatinine Ratio 18 Glucose 100 Calculated Osmolality 280 Calcium 9.2 Corrected Calcium 9.2 Total Bilirubin 0.2 L AST 21 ALT 18 Alkaline Phosphatase 67 Total Protein 7.0 Albumin 4.1 Globulin 2.9 Albumin/Globulin Ratio 1.4 Mycobacterial Culture See Sep Rpt Assessment & Plan A&P Narrative cavitary lung disease on chest imaging. qtf and afb's pos mtb naat noted. 1-10 afb/hpf noted limited pmh testing of outpt contacts is at the discretion of health department will check in on Sunday if he remains in house weekly cbc, cmp ok weekly while in house. but if you insist on more often. that is a choice ok to work with health dept on release. if he lives alone, they can do f/u as outpt in his home if that is allowed. await additional sputums from this past weekend . they will be run today as health dept lab is closed on the weekend Time Spent With Patient Time: Total time spent is greater than 50% in coordination of care (as documented) at patient's floor/unit and/or counseling patient:
[2025-03-30] MEDS: PYRAZINAMIDE 500 MG TABLET 1500 MG PO (10:27)
[2025-03-30] MEDS: PYRIDOXINE 50 MG TABLET PO (10:27)
[2025-03-30] MEDS: rifAMPin 300 MG CAPSULE 600 MG PO (10:27)
[2025-03-30] MEDS: ETHAMBUTOL HCL 400 MG TABLET 1200 MG PO (10:28)
--- NOTE | 2025-03-30 14:27 | PC.SS ---
SS follow up note; Patient is pending TB clearance and pending family results, patient will discharge back home when medically cleared.
--- NOTE | 2025-03-30 15:23 | PD.RESPRO ---
Documentation for date of: 03/30/25 Subjective Subjective Interval history: Patient examined at bedside. No events overnight, no major complaints. Vitals stable. Labs today were unremarkable. He is medically cleared for discharge. Continuing to work with in house infection prevention for discharge plans. Per [facility], he can be discharged and stay in isolation but pending family member's TB status. Continue to monitor and RIPE treatment. Exam Vital Signs Temp Pulse Resp BP Pulse Ox O2 Del Method 97.0 F 93 18 107/61 94 L Room Air 03/30/25 08:44 03/30/25 08:44 03/30/25 08:44 03/30/25 08:44 03/30/25 08:44 03/30/25 08:44 Narrative Exam General: Yound male, sleeping, No acute distress, cooperative HEENT: NCAT, No JVD noted. Mucosa moist. Pupils are equal and reactive to light bilaterally Cardiovascular: Normal S1 and S2. Regular rate and rhythm. Respiratory: Lungs are clear to auscultation bilaterally. No wheezing or crackles heard. Abdomen: Soft, nontender, not distended, normal bowel sounds. Skin: Warm to touch, dry, no rashes noted Musculoskeletal: No gross injuries. Able to move all 4 extremities. No pitting edema Neuro: Alert and oriented x3. No focal neuro deficits. Psych: Normal affect and mood Objective Labs 03/30/25 04:38 03/30/25 04:38 Labs: Laboratory Results - last 24 hr 03/27/25 03/30/25 12:00 04:38 WBC 11.9 H RBC 5.04 Hgb 13.3 L Hct 40.6 L MCV 81 MCH 26.4 MCHC 32.8 RDW Std Deviation 50.7 H Plt Count 382 D Neut % (Auto) 56 Lymph % (Auto) 23 Kingfisher % (Auto) 12 Eos % (Auto) 9 Baso % (Auto) 1 Neut # (Auto) 6.6 Lymph # (Auto) 2.7 Kingfisher # (Auto) 1.4 H Eos # (Auto) 1.1 H Baso # (Auto) 0.1 Immature Gran # (Auto) 0.04 H Absolute Nucleated RBC 0.00 Immature Gran % 0 Nucleated RBC % 0 Sodium 140 Potassium 3.9 Chloride 101 Carbon Dioxide 29.0 Anion Gap 10 BUN 16 Creatinine 0.9 Estim Creat Clear Calc 113.2 eGFR > 60 BUN/Creatinine Ratio 18 Glucose 100 Calculated Osmolality 280 Calcium 9.2 Corrected Calcium 9.2 Total Bilirubin 0.2 L AST 21 ALT 18 Alkaline Phosphatase 67 Total Protein 7.0 Albumin 4.1 Globulin 2.9 Albumin/Globulin Ratio 1.4 Mycobacterial Culture See Sep Rpt Quality Measures Quality Measures none Assessment & Plan Assessment Current Active Medications: Generic Name Dose Route Start Last Admin Trade Name Freq PRN Reason Stop Dose Admin Ethambutol HCl 1,200 mg 03/05/25 09:00 03/30/25 10:28 Ethambutol Hcl 400 Mg Tablet PO 04/04/25 08:59 1,200 mg QDAY YUMIKO Administration Isoniazid 300 mg 03/10/25 11:00 03/30/25 05:50 Isoniazid 300 Mg Tablet PO 04/09/25 10:59 300 mg ACBR YUMIKO Administration Pyrazinamide 1,500 mg 03/05/25 09:00 03/30/25 10:27 Pyrazinamide 500 Mg Tablet PO 04/04/25 08:59 1,500 mg QDAY YUIMKO Administration Pyridoxine HCl 50 mg 03/02/25 09:00 03/30/25 10:27 Pyridoxine 50 Mg Tablet PO 03/02/26 12:00 50 mg QDAY YUMIKO Administration Rifampin 600 mg 03/05/25 09:00 03/30/25 10:27 Rifampin 300 Mg Capsule PO 04/04/25 08:59 600 mg QDAY YUMIKO Administration Plan 24-year-old male with no relevant past medical history was admitted to the hospital 02/25/2025 for TB rule out in the setting of cavitary lesions on imaging. #Active Tuberculosis #Bilateral cavitary lesions #Shortness of breath, resolved #Cough, improving #Sore throat, resolved #Leukocytosis Patient came in with complaints of some shortness of breath along with cough and sore throat for the past 5 months. Patient denied any night sweats or hemoptysis. Patient's chest CT that showed severe cavitary disease in both lungs and chest x-ray also showed cavitary lesions in both lungs. Patient states that he has not had any sick contacts. Patient does not recall having any prior pulmonary issues in the past when he was a child. Patient's WBCs were 18.2 initially, downtrending with no fevers Cocci negative Blood culture negative and sputum mixed oral [employer]'s have been positive thus far on repeat AFBs Discontinued azithromycin and Rocephin (02/25/2025?02/27/2025), Vancomycin (02/26/2025-02/27/2025) and Fluconazole (02/26/2025-03/01/2025) Hepatitis B/C serology negative. CRP 1.6 Plan: Per [facility], he can be discharged and stay in isolation but pending family member's TB status. His cousin's results are pending. RIPE (02/27/2025-) -Isoniazid 300mgQD -Ethambutol 1200mg QD -Pyrazinamide 1500mg QD -Rifampin 600mg QD Pyridoxine 50 mg daily Isolation and airborne precautions ID consulted, appreciate recommendations #Thrombocytosis-resolved Disposition: DC Pending family member results and county clearance . We are closely working with in-house infection control on discharge planning Diet: regular GI prophylaxis: not indicated DVT prophylaxis: lovenox Code:Full code Patient care was discussed with attending physician Dr. Tyrell Oliveira, PGY1 Attending Provider Attestation/Addendum I have examined the patient, reviewed labs and imaging findings, discussed the case with the resident(s), and reviewed entered orders. I agree with the plan of care as outlined in this note, with these additional summaries/recommendations: Patient seen at bedside. No acute overnight events. Continue RIPE therapy for active tuberculosis. Patient is pending disposition from [facility] to continue RIPE therapy at home and self isolation. We will send additional AFBs if patient remains hospitalized this week. Patient updated on the plan and in agreement. All questions answered to satisfaction. Please see residents note for additional details and management. Dr. Tyrell MD
[2025-03-30 22:00] VITALS: BP 108/61; PULSE 83; RESP 18; TEMP 36.3; O2SAT 95
[2025-03-31] MEDS: ISONIAZID 300 MG TABLET PO (05:09)
--- NOTE | 2025-03-31 05:13 | PC.NURSE ---
per pt has good appetite but eats food from home. Does not like food from hospital, no taste per pt.
[2025-03-31 06:00] VITALS: BP 104/66; PULSE 90; RESP 18; TEMP 36.1; O2SAT 97
[2025-03-31] MEDS: PYRAZINAMIDE 500 MG TABLET 1500 MG PO (10:17)
[2025-03-31] MEDS: rifAMPin 300 MG CAPSULE 600 MG PO (10:17)
[2025-03-31] MEDS: PYRIDOXINE 50 MG TABLET PO (10:17)
[2025-03-31] MEDS: ETHAMBUTOL HCL 400 MG TABLET 1200 MG PO (10:18)
--- NOTE | 2025-03-31 10:22 | PC.SS ---
SS follow up note; Pending TB clearance. SS contacted Veronika from ID. She informed SS that patient's cousin got tested and tested positive as well. Pending [facility] clearance. Patient will discharge home when medically cleared.
--- NOTE | 2025-03-31 10:42 | PC.IP ---
Emailed pt.'s XAVIER for the dates 03/26 - 03/31, per Alis BUSTOS [facility].
[2025-03-31 13:20] VITALS: BP 105/57; PULSE 73; RESP 16; TEMP 36.5; O2SAT 95
--- NOTE | 2025-03-31 14:40 | PD.RESPRO ---
Documentation for date of: 03/31/25 Subjective Subjective Interval history: Patient examined at bedside. Today I visited patient with social services manager and infection prevention team. Patient stated that he lives alone so we will now update the county to see if they will clear him for discharge. From medical standpoint patient is okay to go home. His cousin tested positive for TB. He was updated on the plan and expressed understanding. Continue to monitor and RIPE treatment. Exam Vital Signs Temp Pulse Resp BP Pulse Ox O2 Del Method 97 F 90 18 104/66 97 Room Air 03/31/25 06:00 03/31/25 06:00 03/31/25 06:00 03/31/25 06:00 03/31/25 06:00 03/31/25 06:00 Narrative Exam General: Yound male, sleeping, No acute distress, cooperative HEENT: NCAT, No JVD noted. Mucosa moist. Pupils are equal and reactive to light bilaterally Cardiovascular: Normal S1 and S2. Regular rate and rhythm. Respiratory: Lungs are clear to auscultation bilaterally. No wheezing or crackles heard. Abdomen: Soft, nontender, not distended, normal bowel sounds. Skin: Warm to touch, dry, no rashes noted Musculoskeletal: No gross injuries. Able to move all 4 extremities. No pitting edema Neuro: Alert and oriented x3. No focal neuro deficits. Psych: Normal affect and mood Objective Labs 03/30/25 04:38 03/30/25 04:38 Quality Measures Quality Measures none Assessment & Plan Assessment Current Active Medications: Generic Name Dose Route Start Last Admin Trade Name Freq PRN Reason Stop Dose Admin Ethambutol HCl 1,200 mg 03/05/25 09:00 03/31/25 10:18 Ethambutol Hcl 400 Mg Tablet PO 04/04/25 08:59 1,200 mg QDAY YUMIKO Administration Isoniazid 300 mg 03/10/25 11:00 03/31/25 05:09 Isoniazid 300 Mg Tablet PO 04/09/25 10:59 300 mg ACBR YUMIKO Administration Pyrazinamide 1,500 mg 03/05/25 09:00 03/31/25 10:17 Pyrazinamide 500 Mg Tablet PO 04/04/25 08:59 1,500 mg QDAY YUMIKO Administration Pyridoxine HCl 50 mg 03/02/25 09:00 03/31/25 10:17 Pyridoxine 50 Mg Tablet PO 03/02/26 12:00 50 mg QDAY YUMIKO Administration Rifampin 600 mg 03/05/25 09:00 03/31/25 10:17 Rifampin 300 Mg Capsule PO 04/04/25 08:59 600 mg QDAY YUMIKO Administration Plan 24-year-old male with no relevant past medical history was admitted to the hospital 02/25/2025 for TB rule out in the setting of cavitary lesions on imaging. #Active Tuberculosis #Bilateral cavitary lesions #Shortness of breath, resolved #Cough, improving #Sore throat, resolved #Leukocytosis Patient came in with complaints of some shortness of breath along with cough and sore throat for the past 5 months. Patient denied any night sweats or hemoptysis. Patient's chest CT that showed severe cavitary disease in both lungs and chest x-ray also showed cavitary lesions in both lungs. Patient states that he has not had any sick contacts. Patient does not recall having any prior pulmonary issues in the past when he was a child. Patient's WBCs were 18.2 initially, downtrending with no fevers Cocci negative Blood culture negative and sputum mixed oral [employer]'s have been positive thus far on repeat AFBs Discontinued azithromycin and Rocephin (02/25/2025?02/27/2025), Vancomycin (02/26/2025-02/27/2025) and Fluconazole (02/26/2025-03/01/2025) Hepatitis B/C serology negative. CRP 1.6 Plan: Patient stated that he lives alone so we will now update the county to see if they will clear him for discharge. From medical standpoint patient is okay to go home. His cousin tested positive for TB. RIPE (02/27/2025-) -Isoniazid 300mgQD -Ethambutol 1200mg QD -Pyrazinamide 1500mg QD -Rifampin 600mg QD Pyridoxine 50 mg daily Isolation and airborne precautions ID consulted, appreciate recommendations #Thrombocytosis-resolved Disposition: DC Pending family member results and county clearance . We are closely working with in-house infection control on discharge planning Diet: regular GI prophylaxis: not indicated DVT prophylaxis: lovenox Code:Full code Patient care was discussed with attending physician Dr. Farrell. Jumana Oliveira, PGY1 Attending Provider Attestation/Addendum I attest that I was physically present for the evaluation, physical examination, lab and imaging review of the patient with the residents. I discussed the case with the residents and agree with the findings and plans of care as documented above. Patient appears comfortable at bedside, denies any new complaints.? AFB from 03/27 came back positive.? Continues to be on ripe therapy. Awaiting health department recommendation regarding placement. José Miguel Farrell MD
[2025-03-31 22:00] VITALS: BP 115/70; PULSE 101; RESP 18; TEMP 36.1; O2SAT 97
[2025-04-01] MEDS: ISONIAZID 300 MG TABLET PO (05:15)
[2025-04-01 06:00] VITALS: BP 109/63; PULSE 87; RESP 18; TEMP 36.3; O2SAT 97
[2025-04-01] MEDS: PYRAZINAMIDE 500 MG TABLET 1500 MG PO (09:08)
[2025-04-01] MEDS: ETHAMBUTOL HCL 400 MG TABLET 1200 MG PO (09:08)
[2025-04-01] MEDS: rifAMPin 300 MG CAPSULE 600 MG PO (09:08)
--- NOTE | 2025-04-01 09:09 | PC.NURSE ---
call to pharmacy, I have no Vit B6 for pt
--- NOTE | 2025-04-01 09:10 | PC.NURSE ---
call to pharmacy, I have no Vit B6 for pt
[2025-04-01] MEDS: PYRIDOXINE 50 MG TABLET PO (11:28)
--- NOTE | 2025-04-01 12:01 | PD.RESPRO ---
Documentation for date of: 04/01/25 Subjective Subjective Interval history: Patient examined at bedside. From medical standpoint patient is cleared to go home. His cousin tested positive for TB. Discharge is now pending clearance from [facility]. He was updated on the plan and expressed understanding. Continue to monitor and RIPE treatment. Exam Vital Signs Temp Pulse Resp BP Pulse Ox O2 Del Method 97.4 F 87 18 109/63 97 Room Air 04/01/25 06:00 04/01/25 06:00 04/01/25 06:00 04/01/25 06:00 04/01/25 06:00 04/01/25 06:00 Narrative Exam General: Yound male, sleeping, No acute distress, cooperative HEENT: NCAT, No JVD noted. Mucosa moist. Pupils are equal and reactive to light bilaterally Cardiovascular: Normal S1 and S2. Regular rate and rhythm. Respiratory: Lungs are clear to auscultation bilaterally. No wheezing or crackles heard. Abdomen: Soft, nontender, not distended, normal bowel sounds. Skin: Warm to touch, dry, no rashes noted Musculoskeletal: No gross injuries. Able to move all 4 extremities. No pitting edema Neuro: Alert and oriented x3. No focal neuro deficits. Psych: Normal affect and mood Objective Labs 03/30/25 04:38 03/30/25 04:38 Labs: Laboratory Results - last 24 hr 03/28/25 03/28/25 00:10 05:15 Mycobacterial Culture See Sep Rpt See Sep Rpt Quality Measures Quality Measures none Assessment & Plan Assessment Current Active Medications: Generic Name Dose Route Start Last Admin Trade Name Freq PRN Reason Stop Dose Admin Ethambutol HCl 1,200 mg 03/05/25 09:00 04/01/25 09:08 Ethambutol Hcl 400 Mg Tablet PO 04/04/25 08:59 1,200 mg QDAY YUMIKO Administration Isoniazid 300 mg 03/10/25 11:00 04/01/25 05:15 Isoniazid 300 Mg Tablet PO 04/09/25 10:59 300 mg ACBR YUMIKO Administration Pyrazinamide 1,500 mg 03/05/25 09:00 04/01/25 09:08 Pyrazinamide 500 Mg Tablet PO 04/04/25 08:59 1,500 mg QDAY YUMIKO Administration Rifampin 600 mg 03/05/25 09:00 04/01/25 09:08 Rifampin 300 Mg Capsule PO 04/04/25 08:59 600 mg QDAY YUMIKO Administration Plan 24-year-old male with no relevant past medical history was admitted to the hospital 02/25/2025 for TB rule out in the setting of cavitary lesions on imaging. #Active Tuberculosis #Bilateral cavitary lesions #Shortness of breath, resolved #Cough, improving #Sore throat, resolved #Leukocytosis Patient came in with complaints of some shortness of breath along with cough and sore throat for the past 5 months. Patient denied any night sweats or hemoptysis. Patient's chest CT that showed severe cavitary disease in both lungs and chest x-ray also showed cavitary lesions in both lungs. Patient states that he has not had any sick contacts. Patient does not recall having any prior pulmonary issues in the past when he was a child. Patient's WBCs were 18.2 initially, downtrending with no fevers Cocci negative Blood culture negative and sputum mixed oral [employer]'s have been positive thus far on repeat AFBs Discontinued azithromycin and Rocephin (02/25/2025?02/27/2025), Vancomycin (02/26/2025-02/27/2025) and Fluconazole (02/26/2025-03/01/2025) Hepatitis B/C serology negative. CRP 1.6 Plan: Patient stated that he lives alone so we will now update the county to see if they will clear him for discharge. From medical standpoint patient is okay to go home. His cousin tested positive for TB. RIPE (02/27/2025-) -Isoniazid 300mgQD -Ethambutol 1200mg QD -Pyrazinamide 1500mg QD -Rifampin 600mg QD Pyridoxine 50 mg daily Isolation and airborne precautions ID consulted, appreciate recommendations #Thrombocytosis-resolved Disposition: DC Pending clearance from [facility]. We are closely working with in-house infection control on discharge planning Diet: regular GI prophylaxis: not indicated DVT prophylaxis: lovenox Code:Full code Patient care was discussed with attending physician Dr. Farrell. Jumana Oliveira, PGY1 Attending Provider Attestation/Addendum I attest that I was physically present for the evaluation, physical examination, lab and imaging review of the patient with the residents. I discussed the case with the residents and agree with the findings and plans of care as documented above. Patient continues to be on ripe therapy, had a discussion with patient yesterday, patient stated that he lives at home alone. Patient is medically clear for discharge, awaiting clearance from [facility]. José Miguel Farrell MD
--- NOTE | 2025-04-01 13:09 | PD.IDPROG ---
Subjective Subjective Interval history: afb's noted. still here per others. Exam Vital Signs Temp Pulse Resp BP Pulse Ox O2 Del Method 97.4 F 87 18 109/63 97 Room Air 04/01/25 06:00 04/01/25 06:00 04/01/25 06:00 04/01/25 06:00 04/01/25 06:00 04/01/25 06:00 Narrative Exam limited visit today Objective - Internal Medicine Labs 03/30/25 04:38 03/30/25 04:38 Labs: Laboratory Results - last 24 hr 03/28/25 03/28/25 00:10 05:15 Mycobacterial Culture See Sep Rpt See Sep Rpt Assessment & Plan A&P Narrative cavitary lung disease on chest imaging. qtf and afb's pos mtb naat noted. 1-10 afb/hpf noted initially limited pmh testing of outpt contacts is at the discretion of health department will check in on Sunday if he remains in house weekly cbc, cmp ok weekly while in house. but if you insist on more often. that is a choice ok to work with health dept on release. if he lives alone, they can do f/u as outpt in his home if that is allowed by them. literature suggests that pts are not contagious quickly after rx initiation await additional sputums from this coming weekend . ok if he goes home at health dept discretion as they have to follow him after release. Time Spent With Patient Time: Total time spent is greater than 50% in coordination of care (as documented) at patient's floor/unit and/or counseling patient:
[2025-04-01 14:00] VITALS: BP 110/50; PULSE 70; RESP 16; TEMP 36.2; O2SAT 92
--- NOTE | 2025-04-01 15:13 | PC.SS ---
SS follow up note; SS follow up note; Patient is medically cleared, however is pending [facility] clearance. Patient will discharge home when medically cleared.
[2025-04-01 22:00] VITALS: BP 124/64; PULSE 81; RESP 16; TEMP 36.2; O2SAT 95
[2025-04-02] MEDS: ISONIAZID 300 MG TABLET PO (05:22)
[2025-04-02 06:00] VITALS: BP 109/60; PULSE 80; RESP 16; TEMP 36.2; O2SAT 96
--- NOTE | 2025-04-02 09:08 | PC.NURSE ---
call to pharmacy, need more myambutol
[2025-04-02] MEDS: PYRAZINAMIDE 500 MG TABLET 1500 MG PO (09:57)
[2025-04-02] MEDS: ETHAMBUTOL HCL 400 MG TABLET 1200 MG PO (09:57)
[2025-04-02] MEDS: rifAMPin 300 MG CAPSULE 600 MG PO (10:03)
[2025-04-02 14:00] VITALS: BP 119/87; PULSE 85; RESP 18; TEMP 36.2; O2SAT 96
[2025-04-02 14:11] VITALS: BMI 25.0
--- NOTE | 2025-04-02 14:56 | PD.RESPRO ---
Documentation for date of: 04/02/25 Subjective Subjective Interval history: Patient examined at bedside. From medical standpoint patient is cleared to go home. Discharge is now pending clearance from [facility]. I spoke with CHIARA Choudhury from [facility] who is on patient's case, for timeline of discharge. [facility] Infection prevention team will fax the [facility] a TB discharge form for overview. She stated that papers will be reviewed on Sunday. He was updated on the plan and expressed understanding. Continue to monitor and RIPE treatment. Exam Vital Signs Temp Pulse Resp BP Pulse Ox O2 Del Method 97.1 F 85 18 119/87 H 96 Room Air 04/02/25 14:00 04/02/25 14:00 04/02/25 14:00 04/02/25 14:04/02/25 14:04/02/25 06:00 Narrative Exam General: Yound male, sleeping, No acute distress, cooperative HEENT: NCAT, No JVD noted. Mucosa moist. Pupils are equal and reactive to light bilaterally Cardiovascular: Normal S1 and S2. Regular rate and rhythm. Respiratory: Lungs are clear to auscultation bilaterally. No wheezing or crackles heard. Abdomen: Soft, nontender, not distended, normal bowel sounds. Skin: Warm to touch, dry, no rashes noted Musculoskeletal: No gross injuries. Able to move all 4 extremities. No pitting edema Neuro: Alert and oriented x3. No focal neuro deficits. Psych: Normal affect and mood Objective Labs 03/30/25 04:38 03/30/25 04:38 Quality Measures Quality Measures none Assessment & Plan Assessment Current Active Medications: Generic Name Dose Route Start Last Admin Trade Name Freq PRN Reason Stop Dose Admin Ethambutol HCl 1,200 mg 03/05/25 09:00 04/02/25 09:57 Ethambutol Hcl 400 Mg Tablet PO 04/04/25 08:59 1,200 mg QDAY YUMIKO Administration Isoniazid 300 mg 03/10/25 11:00 04/02/25 05:22 Isoniazid 300 Mg Tablet PO 04/09/25 10:59 300 mg ACBR YUMIKO Administration Pyrazinamide 1,500 mg 03/05/25 09:00 04/02/25 09:57 Pyrazinamide 500 Mg Tablet PO 04/04/25 08:59 1,500 mg QDAY YUMIKO Administration Rifampin 600 mg 03/05/25 09:00 04/02/25 10:03 Rifampin 300 Mg Capsule PO 04/04/25 08:59 600 mg QDAY YUMIKO Administration Plan 24-year-old male with no relevant past medical history was admitted to the hospital 02/25/2025 for TB rule out in the setting of cavitary lesions on imaging. #Active Tuberculosis #Bilateral cavitary lesions #Shortness of breath, resolved #Cough, resolved #Sore throat, resolved #Mild Leukocytosis Patient came in with complaints of some shortness of breath along with cough and sore throat for the past 5 months. Patient denied any night sweats or hemoptysis. Patient's chest CT that showed severe cavitary disease in both lungs and chest x-ray also showed cavitary lesions in both lungs. Patient states that he has not had any sick contacts. Patient does not recall having any prior pulmonary issues in the past when he was a child. Patient's WBCs were 18.2 initially, downtrending with no fevers Cocci negative Blood culture negative and sputum mixed oral [employer]'s have been positive thus far on repeat AFBs Discontinued azithromycin and Rocephin (02/25/2025?02/27/2025), Vancomycin (02/26/2025-02/27/2025) and Fluconazole (02/26/2025-03/01/2025) Hepatitis B/C serology negative. CRP 1.6 Plan: Patient stated that he lives alone so we will now update the county to see if they will clear him for discharge. From medical standpoint patient is okay to go home. His cousin tested positive for TB. RIPE (02/27/2025-) -Isoniazid 300mgQD -Ethambutol 1200mg QD -Pyrazinamide 1500mg QD -Rifampin 600mg QD Pyridoxine 50 mg daily Isolation and airborne precautions ID consulted, appreciate recommendations #Thrombocytosis-resolved Disposition: DC Pending clearance from [facility]. We are closely working with in-house infection control on discharge planning Diet: regular GI prophylaxis: not indicated DVT prophylaxis: lovenox Code:Full code Patient care was discussed with attending physician Dr. Farrell. Jumana Oliveira, PGY1 Attending Provider Attestation/Addendum I attest that I was physically present for the evaluation, physical examination, lab and imaging review of the patient with the residents. I discussed the case with the residents and agree with the findings and plans of care as documented above. Patient appeared comfortable at bedside, saturating well on room air. Denies any new complaints. Awaiting clearance from [facility]. José Miguel Farrell MD
[2025-04-02 15:16] VITALS: BMI 26.8
[2025-04-02 22:00] VITALS: BP 115/73; PULSE 68; RESP 18; TEMP 37.2; O2SAT 96
[2025-04-03 06:00] VITALS: BP 105/59; PULSE 71; RESP 17; TEMP 36; O2SAT 94
[2025-04-03] MEDS: ISONIAZID 300 MG TABLET PO (06:07)
[2025-04-03] MEDS: ETHAMBUTOL HCL 400 MG TABLET 1200 MG PO (08:50)
[2025-04-03] MEDS: rifAMPin 300 MG CAPSULE 600 MG PO (08:51)
[2025-04-03] MEDS: PYRAZINAMIDE 500 MG TABLET 1500 MG PO (08:51)
--- NOTE | 2025-04-03 09:21 | PD.IDPROG ---
Subjective Subjective Interval history: tb team not eager to take on anyone new, so delays in release noted and as expected. he lives alone and family near him also pos qtf as noted Exam Vital Signs Temp Pulse Resp BP Pulse Ox O2 Del Method 96.8 F 71 17 105/59 L 94 L Room Air 04/03/25 06:00 04/03/25 06:00 04/03/25 06:00 04/03/25 06:00 04/03/25 06:00 04/03/25 06:00 Narrative Exam doing ok. no O2 need. admits to occ cough. will re check sputums in case he stays Objective - Internal Medicine Labs 03/30/25 04:38 03/30/25 04:38 Assessment & Plan A&P Narrative cavitary lung disease on chest imaging. qtf and afb's pos mtb naat noted. 1-10 afb/hpf noted initially improved subsequently limited pmh testing of outpt contacts is at the discretion of health department will check in on Sunday if he remains in house weekly cbc, cmp ok weekly while in house. but if you insist on more often. that is a choice ok to work with health dept on release. if he lives alone, they can do f/u as outpt in his home if that is allowed by them. literature suggests that pts are not contagious quickly after rx initiation await additional sputums from this coming weekend . ok if he goes home at health dept discretion as they have to follow him after release. Time Spent With Patient Time: Total time spent is greater than 50% in coordination of care (as documented) at patient's floor/unit and/or counseling patient:
--- NOTE | 2025-04-03 09:33 | PD.RESPRO ---
Documentation for date of: 04/03/25 Subjective Subjective Interval history: No acute overnight events. Pending county clearance. Until then patient will be staying isolated and will be getting RIPE. Will close follow-up with no updates.We are closely working with in-house infection control on discharge planning. Exam Vital Signs Temp Pulse Resp BP Pulse Ox O2 Del Method 96.8 F 71 17 105/59 L 94 L Room Air 04/03/25 06:00 04/03/25 06:00 04/03/25 06:00 04/03/25 06:00 04/03/25 06:00 04/03/25 06:00 Narrative Exam General: Yound male, sleeping, No acute distress, cooperative HEENT: NCAT, No JVD noted. Mucosa moist. Pupils are equal and reactive to light bilaterally Cardiovascular: Normal S1 and S2. Regular rate and rhythm. Respiratory: Lungs are clear to auscultation bilaterally. No wheezing or crackles heard. Abdomen: Soft, nontender, not distended, normal bowel sounds. Skin: Warm to touch, dry, no rashes noted Musculoskeletal: No gross injuries. Able to move all 4 extremities. No pitting edema Neuro: Alert and oriented x3. No focal neuro deficits. Psych: Normal affect and mood Objective Labs 03/30/25 04:38 03/30/25 04:38 Quality Measures Quality Measures none Assessment & Plan Assessment Current Active Medications: Generic Name Dose Route Start Last Admin Trade Name Freq PRN Reason Stop Dose Admin Ethambutol HCl 1,200 mg 03/05/25 09:00 04/03/25 08:50 Ethambutol Hcl 400 Mg Tablet PO 04/04/25 08:59 1,200 mg QDAY YUMIKO Administration Isoniazid 300 mg 03/10/25 11:00 04/03/25 06:07 Isoniazid 300 Mg Tablet PO 04/09/25 10:59 300 mg ACBR YUMIKO Administration Pyrazinamide 1,500 mg 03/05/25 09:00 04/03/25 08:51 Pyrazinamide 500 Mg Tablet PO 04/04/25 08:59 1,500 mg QDAY YUMIKO Administration Rifampin 600 mg 03/05/25 09:00 04/03/25 08:51 Rifampin 300 Mg Capsule PO 04/04/25 08:59 600 mg QDAY YUMIKO Administration Plan 24-year-old male with no relevant past medical history was admitted to the hospital 02/25/2025 for TB rule out in the setting of cavitary lesions on imaging. #Active Tuberculosis #Bilateral cavitary lesions #Shortness of breath, resolved #Cough, resolved #Sore throat, resolved #Mild Leukocytosis Patient came in with complaints of some shortness of breath along with cough and sore throat for the past 5 months. Patient denied any night sweats or hemoptysis. Patient's chest CT that showed severe cavitary disease in both lungs and chest x-ray also showed cavitary lesions in both lungs. Patient states that he has not had any sick contacts. Patient does not recall having any prior pulmonary issues in the past when he was a child. Patient's WBCs were 18.2 initially, downtrending with no fevers Cocci negative Blood culture negative and sputum mixed oral [employer]'s have been positive thus far on repeat AFBs Discontinued azithromycin and Rocephin (02/25/2025?02/27/2025), Vancomycin (02/26/2025-02/27/2025) and Fluconazole (02/26/2025-03/01/2025) Hepatitis B/C serology negative. CRP 1.6 Plan: Patient stated that he lives alone so we will now update the county to see if they will clear him for discharge. From medical standpoint patient is okay to go home. His cousin tested positive for TB. RIPE (02/27/2025-) -Isoniazid 300mgQD -Ethambutol 1200mg QD -Pyrazinamide 1500mg QD -Rifampin 600mg QD Pyridoxine 50 mg daily Isolation and airborne precautions ID consulted, appreciate recommendations #Thrombocytosis-resolved Disposition: DC Pending clearance from [facility]. We are closely working with in-house infection control on discharge planning Diet: regular GI prophylaxis: not indicated DVT prophylaxis: lovenox Code:Full code Patient care was discussed with attending physician Dr. Bud Lovell MD PGY-2 I have carefully reviewed this document. Due to imperfections in the voice software, there could be grammatical errors including phonetic/typographic errors. This in no way compromises the medical care the patient is receiving Attending Provider Attestation/Addendum I attest that I was physically present for the evaluation, physical examination, lab and imaging review of the patient with the residents. I discussed the case with the residents and agree with the findings and plans of care as documented above. Continues to be comfortable at bedside, saturating well on room air. Vitals are stable. Awaiting clearance from [facility]. José Miguel Farrell MD
[2025-04-03 14:00] VITALS: BP 114/77; PULSE 74; RESP 18; TEMP 36.6; O2SAT 96
--- NOTE | 2025-04-03 15:13 | PC.SS ---
SS follow up note; Patient is medically cleared, however is pending [facility] clearance. Patient will discharge home when medically cleared.
[2025-04-03 22:00] VITALS: BP 131/91; PULSE 78; RESP 18; TEMP 36.4; O2SAT 96
[2025-04-04 06:00] VITALS: BP 98/69; PULSE 83; RESP 18; TEMP 36.1; O2SAT 97
[2025-04-04] MEDS: ISONIAZID 300 MG TABLET PO (06:12)
[2025-04-04] MEDS: ETHAMBUTOL HCL 400 MG TABLET 1200 MG PO (09:25)
[2025-04-04] MEDS: rifAMPin 300 MG CAPSULE 600 MG PO (09:25)
[2025-04-04] MEDS: PYRAZINAMIDE 500 MG TABLET 1500 MG PO (09:25)
[2025-04-04 14:00] VITALS: BP 121/70; PULSE 94; RESP 17; TEMP 36.4; O2SAT 97
--- NOTE | 2025-04-04 16:03 | ESPR_ITS ---
Documentation for date of: 04/04/25 Subjective Subjective Interval history: Patient examined at bedside. From medical standpoint patient is cleared to go home. Discharge is now pending clearance from [facility]. In house infection prevention faxed [facility] a TB discharge form which will be reviewed on Sunday. He was updated on the plan and expressed understanding. Continue to monitor and RIPE treatment. Repeat sputum cultures per ID team. Exam Vital Signs Temp Pulse Resp BP Pulse Ox O2 Del Method 97.0 F 83 18 98/69 97 Room Air 04/04/25 06:00 04/04/25 06:00 04/04/25 06:00 04/04/25 06:00 04/04/25 06:00 04/03/25 06:00 Narrative Exam General: Yound male, sleeping, No acute distress, cooperative HEENT: NCAT, No JVD noted. Mucosa moist. Pupils are equal and reactive to light bilaterally Cardiovascular: Normal S1 and S2. Regular rate and rhythm. Respiratory: Lungs are clear to auscultation bilaterally. No wheezing or crackles heard. Abdomen: Soft, nontender, not distended, normal bowel sounds. Skin: Warm to touch, dry, no rashes noted Musculoskeletal: No gross injuries. Able to move all 4 extremities. No pitting edema Neuro: Alert and oriented x3. No focal neuro deficits. Psych: Normal affect and mood Objective Labs 03/30/25 04:38 03/30/25 04:38 Quality Measures Quality Measures none Assessment & Plan Assessment Current Active Medications: Generic Name Dose Route Start Last Admin Trade Name Freq PRN Reason Stop Dose Admin Ethambutol HCl 1,200 mg 04/04/25 09:15 04/04/25 09:25 Ethambutol Hcl 400 Mg Tablet PO 05/04/25 09:14 1,200 mg QDAY YUMIKO Administration Isoniazid 300 mg 03/10/25 11:00 04/04/25 06:12 Isoniazid 300 Mg Tablet PO 04/09/25 10:59 300 mg ACBR YUMIKO Administration Pyrazinamide 1,500 mg 04/04/25 09:15 04/04/25 09:25 Pyrazinamide 500 Mg Tablet PO 05/04/25 09:14 1,500 mg QDAY YUMIKO Administration Rifampin 600 mg 04/04/25 09:15 04/04/25 09:25 Rifampin 300 Mg Capsule PO 05/04/25 09:14 600 mg QDAY YUMIKO Administration Plan 24-year-old male with no relevant past medical history was admitted to the hospital 02/25/2025 for TB rule out in the setting of cavitary lesions on imaging. #Active Tuberculosis #Bilateral cavitary lesions #Shortness of breath, resolved #Cough, resolved #Sore throat, resolved #Mild Leukocytosis Patient came in with complaints of some shortness of breath along with cough and sore throat for the past 5 months. Patient denied any night sweats or hemoptysis. Patient's chest CT that showed severe cavitary disease in both lungs and chest x-ray also showed cavitary lesions in both lungs. Patient states that he has not had any sick contacts. Patient does not recall having any prior pulmonary issues in the past when he was a child. Patient's WBCs were 18.2 initially, downtrending with no fevers Cocci negative Blood culture negative and sputum mixed oral [employer]'s have been positive thus far on repeat AFBs Discontinued azithromycin and Rocephin (02/25/2025?02/27/2025), Vancomycin (02/26/2025-02/27/2025) and Fluconazole (02/26/2025-03/01/2025) Hepatitis B/C serology negative. CRP 1.6 Plan: Patient stated that he lives alone so we will now update the county to see if they will clear him for discharge. From medical standpoint patient is okay to go home. His cousin tested positive for TB. Sputums cultures per ID on 04/04 are pending. RIPE (02/27/2025-) -Isoniazid 300mgQD -Ethambutol 1200mg QD -Pyrazinamide 1500mg QD -Rifampin 600mg QD Pyridoxine 50 mg daily Isolation and airborne precautions ID consulted, appreciate recommendations #Thrombocytosis-resolved Disposition: DC Pending clearance from [facility]. We are closely working with in-house infection control on discharge planning Diet: regular GI prophylaxis: not indicated DVT prophylaxis: lovenox Code:Full code Patient care was discussed with attending physician Dr. Bud Oliveira, PGY1 Attending Provider Attestation/Addendum I attest that I was physically present for the evaluation, physical examination, lab and imaging review of the patient with the residents. I discussed the case with the residents and agree with the findings and plans of care as documented above. Patient continues to be on ripe therapy. Vitals have been stable. No new complaints. Awaiting clearance by County. José Miguel Farrell MD
[2025-04-04 16:56] LABS: Cult AFB Sendout- Sputum* See Sep Rpt
--- NOTE | 2025-04-04 17:32 | PC.SS ---
SS informed by Dr. Oliveira patient is medically clear. Patient is now pending clearance with [facility].
[2025-04-05] VITALS: BP 124/72; PULSE 103; RESP 18; TEMP 36.1; O2SAT 96
[2025-04-05 02:06] LABS: Cult AFB Sendout- Sputum* See Sep Rpt
[2025-04-05 06:00] VITALS: BP 124/72; PULSE 103; RESP 18; TEMP 36.1; O2SAT 96
[2025-04-05] MEDS: ISONIAZID 300 MG TABLET PO (06:10)
[2025-04-05] MEDS: rifAMPin 300 MG CAPSULE 600 MG PO (08:26)
[2025-04-05] MEDS: ETHAMBUTOL HCL 400 MG TABLET 1200 MG PO (08:26)
[2025-04-05] MEDS: PYRAZINAMIDE 500 MG TABLET 1500 MG PO (08:26)
--- NOTE | 2025-04-05 13:28 | PD.RESPRO ---
Documentation for date of: 04/05/25 Subjective Subjective Interval history: Patient examined at bedside. From medical standpoint patient is cleared to go home. Discharge is now pending clearance from [facility]. In house infection prevention faxed [facility] a TB discharge form which will be reviewed on Sunday. He was updated on the plan and expressed understanding. Continue to monitor and RIPE treatment. Repeat sputum cultures per ID team. Exam Vital Signs Temp Pulse Resp BP Pulse Ox O2 Del Method 97.0 F 103 H 18 124/72 96 Room Air 04/05/25 06:00 04/05/25 06:00 04/05/25 06:00 04/05/25 06:00 04/05/25 06:00 04/05/25 06:00 Narrative Exam General: Yound male, sleeping, No acute distress, cooperative HEENT: NCAT, No JVD noted. Mucosa moist. Pupils are equal and reactive to light bilaterally Cardiovascular: Normal S1 and S2. Regular rate and rhythm. Respiratory: Lungs are clear to auscultation bilaterally. No wheezing or crackles heard. Abdomen: Soft, nontender, not distended, normal bowel sounds. Skin: Warm to touch, dry, no rashes noted Musculoskeletal: No gross injuries. Able to move all 4 extremities. No pitting edema Neuro: Alert and oriented x3. No focal neuro deficits. Psych: Normal affect and mood Objective Labs 03/30/25 04:38 03/30/25 04:38 Quality Measures Quality Measures none Assessment & Plan Assessment Current Active Medications: Generic Name Dose Route Start Last Admin Trade Name Freq PRN Reason Stop Dose Admin Ethambutol HCl 1,200 mg 04/04/25 09:15 04/05/25 08:26 Ethambutol Hcl 400 Mg Tablet PO 05/04/25 09:14 1,200 mg QDAY YUMIKO Administration Isoniazid 300 mg 03/10/25 11:00 04/05/25 06:10 Isoniazid 300 Mg Tablet PO 04/09/25 10:59 300 mg ACBR YUMIKO Administration Pyrazinamide 1,500 mg 04/04/25 09:15 04/05/25 08:26 Pyrazinamide 500 Mg Tablet PO 05/04/25 09:14 1,500 mg QDAY YUMIKO Administration Rifampin 600 mg 04/04/25 09:15 04/05/25 08:26 Rifampin 300 Mg Capsule PO 05/04/25 09:14 600 mg QDAY YUMIKO Administration Plan 24-year-old male with no relevant past medical history was admitted to the hospital 02/25/2025 for TB rule out in the setting of cavitary lesions on imaging. #Active Tuberculosis #Bilateral cavitary lesions #Shortness of breath, resolved #Cough, resolved #Sore throat, resolved #Mild Leukocytosis Patient came in with complaints of some shortness of breath along with cough and sore throat for the past 5 months. Patient denied any night sweats or hemoptysis. Patient's chest CT that showed severe cavitary disease in both lungs and chest x-ray also showed cavitary lesions in both lungs. Patient states that he has not had any sick contacts. Patient does not recall having any prior pulmonary issues in the past when he was a child. Patient's WBCs were 18.2 initially, downtrending with no fevers Cocci negative Blood culture negative and sputum mixed oral [employer]'s have been positive thus far on repeat AFBs Discontinued azithromycin and Rocephin (02/25/2025?02/27/2025), Vancomycin (02/26/2025-02/27/2025) and Fluconazole (02/26/2025-03/01/2025) Hepatitis B/C serology negative. CRP 1.6 Plan: Patient stated that he lives alone so we will now update the county to see if they will clear him for discharge. From medical standpoint patient is okay to go home. His cousin tested positive for TB. Sputums cultures per ID on 04/04 are pending. RIPE (02/27/2025-) -Isoniazid 300mgQD -Ethambutol 1200mg QD -Pyrazinamide 1500mg QD -Rifampin 600mg QD Pyridoxine 50 mg daily Isolation and airborne precautions ID consulted, appreciate recommendations #Thrombocytosis-resolved Disposition: DC Pending clearance from [facility]. We are closely working with in-house infection control on discharge planning Diet: regular GI prophylaxis: not indicated DVT prophylaxis: lovenox Code:Full code Patient care was discussed with attending physician Dr. Bud Oliveira, PGY1 Attending Provider Attestation/Addendum I attest that I was physically present for the evaluation, physical examination, lab and imaging review of the patient with the residents. I discussed the case with the residents and agree with the findings and plans of care as documented above. At bedside today, patient states she is feeling well, denies any symptoms including chest pain, shortness of breath, cough. Updated him about ongoing treatment, status with [facility]. Awaiting clearance by [facility]. José Miguel Farrell MD
[2025-04-05 14:00] VITALS: BP 103/70; PULSE 94; RESP 18; TEMP 36.4; O2SAT 97
[2025-04-05 22:00] VITALS: BP 114/80; PULSE 89; RESP 16; TEMP 37.2; O2SAT 94
[2025-04-06 06:00] VITALS: BP 111/60; PULSE 87; RESP 20; TEMP 37.1; O2SAT 96
[2025-04-06] MEDS: ISONIAZID 300 MG TABLET PO (07:08)
--- NOTE | 2025-04-06 07:25 | PD.IDPROG ---
Subjective Subjective Interval history: afb's pending from weekend. may have some data tomorrow. should not affect discharge though Exam Vital Signs Temp Pulse Resp BP Pulse Ox O2 Del Method 98.7 F 87 20 111/60 96 Room Air 04/06/25 06:00 04/06/25 06:00 04/06/25 06:00 04/06/25 06:00 04/06/25 06:00 04/06/25 06:00 Narrative Exam limited eval Objective - Internal Medicine Labs 03/30/25 04:38 03/30/25 04:38 Assessment & Plan A&P Narrative cavitary lung disease on chest imaging. qtf and afb's pos mtb naat noted. 1-10 afb/hpf noted initially improved subsequently limited pmh testing of outpt contacts is at the discretion of health department will check in on Sunday if he remains in house weekly cbc, cmp ok weekly while in house. but if you insist on more often. that is a choice ok to work with health dept on release. if he lives alone, they can do f/u as outpt in his home if that is allowed by them. literature suggests that pts are not contagious quickly after rx initiation await additional sputums from this coming weekend . ok if he goes home at health dept discretion as they have to follow him after release. Time Spent With Patient Time: Total time spent is greater than 50% in coordination of care (as documented) at patient's floor/unit and/or counseling patient:
[2025-04-06 08:07] VITALS: BP 115/69; PULSE 77; RESP 18; TEMP 36.3; O2SAT 96
[2025-04-06] MEDS: rifAMPin 300 MG CAPSULE 600 MG PO (10:21)
[2025-04-06] MEDS: PYRAZINAMIDE 500 MG TABLET 1500 MG PO (10:21)
[2025-04-06] MEDS: ETHAMBUTOL HCL 400 MG TABLET 1200 MG PO (10:21)
--- NOTE | 2025-04-06 11:47 | PC.SS ---
Rounding: Pending [facility] clearance for DC plan
--- NOTE | 2025-04-06 13:47 | ESPR_ITS ---
Documentation for date of: 04/06/25 Subjective Subjective Interval history: Patient examined at bedside. From medical standpoint patient is cleared to go home. Discharge is now pending clearance from [facility]. [facility] which will be reviewed today. He was updated on the plan and expressed understanding. Continue to monitor and RIPE treatment. Repeat sputum cultures per ID team. Exam Vital Signs Temp Pulse Resp BP Pulse Ox O2 Del Method 97.3 F 77 18 115/69 96 Room Air 04/06/25 08:07 04/06/25 08:07 04/06/25 08:07 04/06/25 08:07 04/06/25 08:07 04/06/25 08:07 Narrative Exam General: Yound male, sleeping, No acute distress, cooperative HEENT: NCAT, No JVD noted. Mucosa moist. Pupils are equal and reactive to light bilaterally Cardiovascular: Normal S1 and S2. Regular rate and rhythm. Respiratory: Lungs are clear to auscultation bilaterally. No wheezing or crackles heard. Abdomen: Soft, nontender, not distended, normal bowel sounds. Skin: Warm to touch, dry, no rashes noted Musculoskeletal: No gross injuries. Able to move all 4 extremities. No pitting edema Neuro: Alert and oriented x3. No focal neuro deficits. Psych: Normal affect and mood Objective Labs 03/30/25 04:38 03/30/25 04:38 Quality Measures Quality Measures none Assessment & Plan Assessment Current Active Medications: Generic Name Dose Route Start Last Admin Trade Name Freq PRN Reason Stop Dose Admin Ethambutol HCl 1,200 mg 04/04/25 09:15 04/06/25 10:21 Ethambutol Hcl 400 Mg Tablet PO 05/04/25 09:14 1,200 mg QDAY YUMIKO Administration Isoniazid 300 mg 03/10/25 11:00 04/06/25 07:08 Isoniazid 300 Mg Tablet PO 04/09/25 10:59 300 mg ACBR YUMIKO Administration Pyrazinamide 1,500 mg 04/04/25 09:15 04/06/25 10:21 Pyrazinamide 500 Mg Tablet PO 05/04/25 09:14 1,500 mg QDAY YUMIKO Administration Rifampin 600 mg 04/04/25 09:15 04/06/25 10:21 Rifampin 300 Mg Capsule PO 05/04/25 09:14 600 mg QDAY YUMIKO Administration Plan 24-year-old male with no relevant past medical history was admitted to the hospital 02/25/2025 for TB rule out in the setting of cavitary lesions on imaging. #Active Tuberculosis #Bilateral cavitary lesions #Shortness of breath, resolved #Cough, resolved #Sore throat, resolved #Mild Leukocytosis Patient came in with complaints of some shortness of breath along with cough and sore throat for the past 5 months. Patient denied any night sweats or hemoptysis. Patient's chest CT that showed severe cavitary disease in both lungs and chest x-ray also showed cavitary lesions in both lungs. Patient states that he has not had any sick contacts. Patient does not recall having any prior pulmonary issues in the past when he was a child. Patient's WBCs were 18.2 initially, downtrending with no fevers Cocci negative Blood culture negative and sputum mixed oral [employer]'s have been positive thus far on repeat AFBs Discontinued azithromycin and Rocephin (02/25/2025?02/27/2025), Vancomycin (02/26/2025-02/27/2025) and Fluconazole (02/26/2025-03/01/2025) Hepatitis B/C serology negative. CRP 1.6 Plan: Patient stated that he lives alone so we will now update the county to see if they will clear him for discharge. From medical standpoint patient is okay to go home. His cousin tested positive for TB. Sputums cultures per ID on 04/04 are pending. RIPE (02/27/2025-) -Isoniazid 300mgQD -Ethambutol 1200mg QD -Pyrazinamide 1500mg QD -Rifampin 600mg QD Pyridoxine 50 mg daily Isolation and airborne precautions ID consulted, appreciate recommendations #Thrombocytosis-resolved Disposition: DC Pending clearance from [facility]. We are closely working with in-house infection control on discharge planning Diet: regular GI prophylaxis: not indicated DVT prophylaxis: lovenox Code:Full code Patient care was discussed with attending physician Dr. Bud Oliveira, PGY1 Attending Provider Attestation/Addendum I attest that I was physically present for the evaluation, physical examination, lab and imaging review of the patient with the residents. I discussed the case with the residents and agree with the findings and plans of care as documented above. Patient continues to be comfortable and denies any new complaints. Denies shortness of breath, chest pain or cough. Awaiting clearance from County. José Miguel Farrell MD
[2025-04-06 22:00] VITALS: BP 127/78; PULSE 95; RESP 18; TEMP 36.1; O2SAT 97
[2025-04-07 05:17] LABS: Basophils # (Auto) 0.1 Thou/mm3 (0.0-0.2); Basophils % (Auto) 1 % (0-2.5); Eosinophils # (Auto) 0.9 Thou/mm3 (0.0-0.5); Eosinophils % (Auto) 9 % (0-10); Hematocrit 40.1 % (41.0-53.0); Hemoglobin 13.2 g/dL (13.5-16.0); Immature Granulocytes % (Auto) 0 % (0-0); Immature Granulocytes Auto 0.02 Thou/mm3 (0.00-0.00); Lymphocytes # (Auto) 2.4 Thou/mm3 (1.0-4.8); Lymphocytes % (Auto) 24 % (10-50); Mean Corpuscular HGB Conc 32.9 g/dl (31.0-37.0); Mean Corpuscular Volume 79 fL (80-100); Monocytes # (Auto) 1.4 Thou/mm3 (0.0-0.8); Monocytes % (Auto) 14 % (0-12); Neutrophils # (Auto) 5.3 Thou/mm3 (1.8-7.7); Neutrophils % (Auto) 52 % (37-80); Nucleated Red Blood Cell % 0 /100 WBC (0); Platelet Count 453 Thou/mm3 (140-440); RDW Standard Deviation 49.1 fL (35.1-43.9); Red Blood Count 5.07 Miln/mm3 (4.50-5.90); White Blood Count 10.2 Thou/mm3 (3.8-10.6)
[2025-04-07 05:34] LABS: Alanine Aminotransferase 13 U/L (10-49); Albumin, Serum 4.1 gm/dL (3.5-5.0); Albumin/Globulin Ratio 1.5 (1.2-2.2); Alkaline Phosphatase 67 U/L (46-116); Anion Gap 7 (7-16); Aspartate Amino Transferase 17 U/L (0-34); BUN/Creatinine Ratio 16 Ratio (12-20); Bilirubin,Total 0.2 mg/dL (0.3-1.2); Blood Urea Nitrogen 13 mg/dL (9-23); Chloride 101 mMol/L (98-107); Creatinine (Component) 0.8 mg/dL (0.6-1.3); Estimated Creatinine Clearance 138.4 mL/min (>60); Globulin 2.8 gm/dL (2.3-3.5); Glucose 124 mg/dL (74-106); Osmolality,Calculated 276 (275-295); Sodium 138 mMol/L (136-145); Total Protein 6.9 gm/dL (5.7-8.2); eGFR > 60 See Note
[2025-04-07] MEDS: ISONIAZID 300 MG TABLET PO (05:43)
[2025-04-07 06:00] VITALS: BP 129/74; PULSE 93; RESP 18; TEMP 36.1; O2SAT 97
[2025-04-07] MEDS: rifAMPin 300 MG CAPSULE 600 MG PO (09:58)
[2025-04-07] MEDS: ETHAMBUTOL HCL 400 MG TABLET 1200 MG PO (09:58)
[2025-04-07] MEDS: PYRAZINAMIDE 500 MG TABLET 1500 MG PO (12:32)
[2025-04-07 14:00] VITALS: BP 111/67; PULSE 96; RESP 19; TEMP 36.4; O2SAT 97
--- NOTE | 2025-04-07 14:29 | PD.RESPRO ---
Documentation for date of: 04/07/25 Subjective Subjective Interval history: Patient examined at bedside. He has no major complaints. From medical standpoint patient is cleared to go home. Labs continue to be stable. Discharge is now pending clearance from [facility]. In house infection prevention faxed [facility] a TB discharge form which will be reviewed. I will contact the RN from [facility] again to get update on discharge plans. He was updated on the plan and expressed understanding. Continue to monitor and RIPE treatment. Repeat sputum cultures per ID team. Exam Vital Signs Temp Pulse Resp BP Pulse Ox O2 Del Method 97.0 F 93 18 129/74 97 Room Air 04/07/25 06:00 04/07/25 06:00 04/07/25 06:00 04/07/25 06:00 04/07/25 06:00 04/07/25 06:00 Narrative Exam General: Yound male, sleeping, No acute distress, cooperative HEENT: NCAT, No JVD noted. Mucosa moist. Pupils are equal and reactive to light bilaterally Cardiovascular: Normal S1 and S2. Regular rate and rhythm. Respiratory: Lungs are clear to auscultation bilaterally. No wheezing or crackles heard. Abdomen: Soft, nontender, not distended, normal bowel sounds. Skin: Warm to touch, dry, no rashes noted Musculoskeletal: No gross injuries. Able to move all 4 extremities. No pitting edema Neuro: Alert and oriented x3. No focal neuro deficits. Psych: Normal affect and mood Objective Labs 04/07/25 04:52 04/07/25 04:52 Labs: Laboratory Results - last 24 hr 04/07/25 04:52 WBC 10.2 RBC 5.07 Hgb 13.2 L Hct 40.1 L MCV 79 L MCH 26.0 MCHC 32.9 RDW Std Deviation 49.1 H Plt Count 453 H D Neut % (Auto) 52 Lymph % (Auto) 24 Union % (Auto) 14 H Eos % (Auto) 9 Baso % (Auto) 1 Neut # (Auto) 5.3 Lymph # (Auto) 2.4 Union # (Auto) 1.4 H Eos # (Auto) 0.9 H Baso # (Auto) 0.1 Immature Gran # (Auto) 0.02 H Absolute Nucleated RBC 0.00 Immature Gran % 0 Nucleated RBC % 0 Sodium 138 Potassium 4.0 Chloride 101 Carbon Dioxide 30.0 Anion Gap 7 BUN 13 Creatinine 0.8 Estim Creat Clear Calc 138.4 eGFR > 60 BUN/Creatinine Ratio 16 Glucose 124 H Calculated Osmolality 276 Calcium 9.0 Corrected Calcium 9.0 Total Bilirubin 0.2 L AST 17 ALT 13 Alkaline Phosphatase 67 Total Protein 6.9 Albumin 4.1 Globulin 2.8 Albumin/Globulin Ratio 1.5 Quality Measures Quality Measures none Assessment & Plan Assessment Current Active Medications: Generic Name Dose Route Start Last Admin Trade Name Freq PRN Reason Stop Dose Admin Ethambutol HCl 1,200 mg 04/04/25 09:15 04/07/25 09:58 Ethambutol Hcl 400 Mg Tablet PO 05/04/25 09:14 1,200 mg QDAY YUMIKO Administration Isoniazid 300 mg 03/10/25 11:00 04/07/25 05:43 Isoniazid 300 Mg Tablet PO 04/09/25 10:59 300 mg ACBR YUMIKO Administration Pyrazinamide 1,500 mg 04/04/25 09:15 04/07/25 12:32 Pyrazinamide 500 Mg Tablet PO 05/04/25 09:14 1,500 mg QDAY YUMIKO Administration Rifampin 600 mg 04/04/25 09:15 04/07/25 09:58 Rifampin 300 Mg Capsule PO 05/04/25 09:14 600 mg QDAY YUMIKO Administration Plan 24-year-old male with no relevant past medical history was admitted to the hospital 02/25/2025 for TB rule out in the setting of cavitary lesions on imaging. #Active Tuberculosis #Bilateral cavitary lesions #Shortness of breath, resolved #Cough, resolved #Sore throat, resolved #Mild Leukocytosis Patient came in with complaints of some shortness of breath along with cough and sore throat for the past 5 months. Patient denied any night sweats or hemoptysis. Patient's chest CT that showed severe cavitary disease in both lungs and chest x-ray also showed cavitary lesions in both lungs. Patient states that he has not had any sick contacts. Patient does not recall having any prior pulmonary issues in the past when he was a child. Patient's WBCs were 18.2 initially, downtrending with no fevers Cocci negative Blood culture negative and sputum mixed oral ashley AFB's have been positive thus far on repeat AFBs Discontinued azithromycin and Rocephin (02/25/2025?02/27/2025), Vancomycin (02/26/2025-02/27/2025) and Fluconazole (02/26/2025-03/01/2025) Hepatitis B/C serology negative. CRP 1.6 Plan: Patient stated that he lives alone so we will now update the county to see if they will clear him for discharge. From medical standpoint patient is okay to go home. His cousin tested positive for TB. Sputums cultures per ID on 04/04 are pending. RIPE (02/27/2025-) -Isoniazid 300mgQD -Ethambutol 1200mg QD -Pyrazinamide 1500mg QD -Rifampin 600mg QD Pyridoxine 50 mg daily Isolation and airborne precautions ID consulted, appreciate recommendations #Thrombocytosis-resolved Disposition: DC Pending clearance from [facility]. We are closely working with in-house infection control on discharge planning Diet: regular GI prophylaxis: not indicated DVT prophylaxis: lovenox Code:Full code Patient care was discussed with attending physician Dr. Santillan. Jumana Oliveira, PGY1 Attending Provider Attestation/Addendum I have examined the patient, reviewed labs and imaging findings, discussed the case with the resident(s), and reviewed entered orders. I agree with the plan of care as outlined in this note, with these additional summaries/recommendations: Patient seen at bedside. No acute overnight events. He is pending clearance for discharge from [facility] for home self-isolation. We will continue to follow-up with the [facility]. Continue ripe therapy for active TB and continues to tolerate well. Further AFB results pending. Please see residents note for additional details and management. Dr. Tyrell MD
[2025-04-07 22:00] VITALS: BP 110/66; PULSE 76; RESP 18; TEMP 36.9; O2SAT 96
[2025-04-08] MEDS: ISONIAZID 300 MG TABLET PO (05:22)
[2025-04-08 05:52] VITALS: BP 116/64; PULSE 100; RESP 17; TEMP 36.9; O2SAT 96
[2025-04-08] MEDS: ETHAMBUTOL HCL 400 MG TABLET 1200 MG PO (09:28)
[2025-04-08] MEDS: rifAMPin 300 MG CAPSULE 600 MG PO (09:28)
[2025-04-08] MEDS: PYRAZINAMIDE 500 MG TABLET 1500 MG PO (09:29)
--- NOTE | 2025-04-08 13:16 | PD.IDPROG ---
Subjective Subjective Interval history: pt not yet released. sputums improved to rare afb now (<1/hpf) Exam Vital Signs Temp Pulse Resp BP Pulse Ox O2 Del Method 98.4 F 100 17 116/64 96 Room Air 04/08/25 05:52 04/08/25 05:52 04/08/25 05:52 04/08/25 05:52 04/08/25 05:52 04/08/25 05:52 Narrative Exam limited eval today Objective - Internal Medicine Labs 04/07/25 04:52 04/07/25 04:52 Labs: Laboratory Results - last 24 hr 04/04/25 04/05/25 16:51 01:55 Mycobacterial Culture See Sep Rpt See Sep Rpt Assessment & Plan A&P Narrative cavitary lung disease on chest imaging. qtf and afb's pos mtb naat noted. 1-10 afb/hpf noted initially improved subsequently limited pmh testing of outpt contacts is at the discretion of health department will check in on Sunday if he remains in house weekly cbc, cmp ok weekly while in house. but if you insist on more often. that is a choice ok to work with health dept on release. if he lives alone, they can do f/u as outpt in his home if that is allowed by them. literature suggests that pts are not contagious quickly after rx initiation await additional sputums from this coming weekend . ok if he goes home at health dept discretion as they have to follow him after release. Time Spent With Patient Time: Total time spent is greater than 50% in coordination of care (as documented) at patient's floor/unit and/or counseling patient:
[2025-04-08 14:00] VITALS: BP 117/59; PULSE 83; RESP 16; TEMP 36.7; O2SAT 99
--- NOTE | 2025-04-08 14:16 | PC.SS ---
follow up note; Patient is medically cleared, pending [facility] clearance patient will discharge home when cleared by [facility].
--- NOTE | 2025-04-08 19:36 | ESPR_ITS ---
Documentation for date of: 04/08/25 Subjective Subjective Interval history: Patient examined at bedside. He has no major complaints. From medical standpoint patient is cleared to go home. Labs continue to be stable. Discharge is now pending clearance from [facility]. I spoke with [facility] personnel today by the name of Kylee. Stated that the team will review patient's documents with physician on this case. She also did clarify that during a surprise visit, it appeared that patient was not living alone. They will touch base tomorrow for an update. In house infection prevention faxed [facility] a TB discharge form. Continue to monitor and RIPE treatment. Exam Vital Signs Temp Pulse Resp BP Pulse Ox O2 Del Method 98.0 F 83 16 117/59 L 99 Room Air 04/08/25 14:00 04/08/25 14:00 04/08/25 14:00 04/08/25 14:00 04/08/25 14:00 04/08/25 14:00 Narrative Exam General: Yound male, sleeping, No acute distress, cooperative HEENT: NCAT, No JVD noted. Mucosa moist. Pupils are equal and reactive to light bilaterally Cardiovascular: Normal S1 and S2. Regular rate and rhythm. Respiratory: Lungs are clear to auscultation bilaterally. No wheezing or crackles heard. Abdomen: Soft, nontender, not distended, normal bowel sounds. Skin: Warm to touch, dry, no rashes noted Musculoskeletal: No gross injuries. Able to move all 4 extremities. No pitting edema Neuro: Alert and oriented x3. No focal neuro deficits. Psych: Normal affect and mood Objective Labs 04/07/25 04:52 04/07/25 04:52 Labs: Laboratory Results - last 24 hr 04/04/25 04/05/25 16:51 01:55 Mycobacterial Culture See Sep Rpt See Sep Rpt Quality Measures Quality Measures none Assessment & Plan Assessment Current Active Medications: Generic Name Dose Route Start Last Admin Trade Name Freq PRN Reason Stop Dose Admin Ethambutol HCl 1,200 mg 04/04/25 09:15 04/08/25 09:28 Ethambutol Hcl 400 Mg Tablet PO 05/04/25 09:14 1,200 mg QDAY YUMIKO Administration Isoniazid 300 mg 03/10/25 11:00 04/08/25 05:22 Isoniazid 300 Mg Tablet PO 04/09/25 10:59 300 mg ACBR YUMIKO Administration Pyrazinamide 1,500 mg 04/04/25 09:15 04/08/25 09:29 Pyrazinamide 500 Mg Tablet PO 05/04/25 09:14 1,500 mg QDAY YUMIKO Administration Rifampin 600 mg 04/04/25 09:15 04/08/25 09:28 Rifampin 300 Mg Capsule PO 05/04/25 09:14 600 mg QDAY YUMIKO Administration Plan 24-year-old male with no relevant past medical history was admitted to the hospital 02/25/2025 for TB rule out in the setting of cavitary lesions on imaging. #Active Tuberculosis #Bilateral cavitary lesions #Shortness of breath, resolved #Cough, resolved #Sore throat, resolved #Mild Leukocytosis Patient came in with complaints of some shortness of breath along with cough and sore throat for the past 5 months. Patient denied any night sweats or hemoptysis. Patient's chest CT that showed severe cavitary disease in both lungs and chest x-ray also showed cavitary lesions in both lungs. Patient states that he has not had any sick contacts. Patient does not recall having any prior pulmonary issues in the past when he was a child. Patient's WBCs were 18.2 initially, downtrending with no fevers Cocci negative Blood culture negative and sputum mixed oral ashley AFB's have been positive thus far on repeat AFBs Discontinued azithromycin and Rocephin (02/25/2025?02/27/2025), Vancomycin (02/26/2025-02/27/2025) and Fluconazole (02/26/2025-03/01/2025) Hepatitis B/C serology negative. CRP 1.6 Plan: Patient stated that he lives alone so we will now update the county to see if they will clear him for discharge. From medical standpoint patient is okay to go home. His cousin tested positive for TB. Sputum cultures from last week show a less than 1 PF RIPE (02/27/2025-) -Isoniazid 300mgQD -Ethambutol 1200mg QD -Pyrazinamide 1500mg QD -Rifampin 600mg QD Pyridoxine 50 mg daily Isolation and airborne precautions ID consulted, appreciate recommendations #Thrombocytosis-resolved Disposition: DC Pending clearance from [facility]. We are closely working with in-house infection control on discharge planning Diet: regular GI prophylaxis: not indicated DVT prophylaxis: lovenox Code:Full code Patient care was discussed with attending physician Dr. Santillan. Jumana Oliveira, PGY1 Attending Provider Attestation/Addendum I have examined the patient, reviewed labs and imaging findings, discussed the case with the resident(s), and reviewed entered orders. I agree with the plan of care as outlined in this note, with these additional summaries/recommendations: Patient seen at bedside. No acute overnight events. He is pending clearance for discharge from [facility] for home self-isolation. We will continue to follow-up with the [facility]. Continue ripe therapy for active TB and continues to tolerate well. AFBs improving with now <1 per field. Please see residents note for additional details and management. Dr. Tyrell MD
[2025-04-08 22:00] VITALS: BP 119/70; RESP 18; TEMP 36.4; O2SAT 95
[2025-04-09] MEDS: ISONIAZID 300 MG TABLET PO (05:07)
[2025-04-09 05:17] VITALS: BP 103/60; PULSE 88; RESP 18; TEMP 36.2; O2SAT 97
[2025-04-09] MEDS: ETHAMBUTOL HCL 400 MG TABLET 1200 MG PO (09:52)
[2025-04-09] MEDS: PYRAZINAMIDE 500 MG TABLET 1500 MG PO (09:52)
[2025-04-09] MEDS: rifAMPin 300 MG CAPSULE 600 MG PO (09:52)
--- NOTE | 2025-04-09 09:59 | PC.IP ---
Received TB Discharge Plan via fax from Michael BUSTOS [facility]. Per Michael BUSTOS, the pt. may be discharged after receiving today's dose of daily TB medications. Dr. Oliveira has been made aware.
--- NOTE | 2025-04-09 11:30 | PC.NURSE ---
Discharge complete ride pending per pt cousin will arrive about 1230 today.
--- NOTE | 2025-04-09 11:30 | PC.NURSE ---
Rounded with MD Santillan per new medications sent and clear to dc.
--- NOTE | 2025-04-09 18:31 | ESDS_ITS ---
Planned Discharge Date 04/09/25 DS: Providers Provider Date of admission: 02/25/25 18:32 Primary care physician: Physician No Primary/Family Admitting Provider: Manoj Becerra MD Attending Provider on Admission: Gennaro Santillan MD Consults: 02/25/25 18:36 Consult to Infectious Diseases Routine Comment: Consulting Provider: Bruno Viveros 02/25/25 22:16 Referral Infection Control Routine Comment: Reason for Infection Control Referral: Patient In Isolation Health Equity Referral - Knowledge Deficit Routine Comment: Positive screening for knowledge deficit needs. Attending Provider on DC: Gennaro Santillan MD Discharging Provider: Gennaro Santillan MD DS: Diagnosis Problem List Completed Was Problem List Reviewed/Reconciled?: Yes Hospital Course Hospital Course Hospital course: Reason for hospitalization: active TB Michael Lynn is 24 yr male with no significant PMH who presented to [facility] 02/25[facility]25 with complaint of cough and SOB. Patient also endorsed significant weight loss of about 20 pounds in the previous 6 months. Denied any blood in the sputum, denied night sweats. Has not traveled out of the [place] in the past 2 years but originally is from [place]. Patient was admitted for management and airborne isolation for active TB. Chest x-ray significant for bilateral parenchymal disease and chest CT showed severe cavitary parenchymal disease throughout both lungs. Cocci was negative and patient was started on RIPE therapy on 02/27. Weekly AFB stains were sent to lab. During course of stay his symptoms improved and stains resulted less than 1 PF. Discharge was pending clearance from [facility]. The patient provided inaccurate information regarding the individuals residing with him at home, which contributed to a delay in his discharge process. In-house infection prevention and hospitalist team worked closely for his discharge. He is to continue RIPE therapy with mask use for additional four and half months. County will continue to monitor status as needed. Patient is now in stable condition and ready for discharge. Recommendations were given as below. Discharge Recommendations: Continue taking 4 anti-TB medications as prescribed including rifampin, isoniazid, pyrazinamide, ethambutol for five more months. You will also need to keep taking vitamin B6 (pyridoxine) during this TB lolly tment for 5 months. Follow up with infectious disease team in 1-2 weeks. Follow up with PCP in 1-2 weeks. Remain in isolation in chosen location until the county clears you. Hospital Diagnoses: #Active Tuberculosis #Mild Leukocytosis-resolved #Thrombocytosis-resolved The patient's management plan was discussed with my attending physician Dr. Santillan. Jumana Oliveira MD, PGY-1 Time Spent with Patient Time attestation: Total time spent providing and/or coordinating discharge services: Time spent: Greater than 30 minutes Exam Vital Signs Temp Pulse Resp BP Pulse Ox O2 Del Method 97.2 F 88 18 103/60 97 Room Air 04/09/25 05:17 04/09/25 05:17 04/09/25 05:17 04/09/25 05:17 04/09/25 05:17 04/09/25 05:17 Narrative Exam General: Yound male, sleeping, No acute distress, cooperative HEENT: NCAT, No JVD noted. Mucosa moist. Pupils are equal and reactive to light bilaterally Cardiovascular: Normal S1 and S2. Regular rate and rhythm. Respiratory: Lungs are clear to auscultation bilaterally. No wheezing or crackles heard. Abdomen: Soft, nontender, not distended, normal bowel sounds. Skin: Warm to touch, dry, no rashes noted Musculoskeletal: No gross injuries. Able to move all 4 extremities. No pitting edema Neuro: Alert and oriented x3. No focal neuro deficits. Psych: Normal affect and mood Discharge Plan Plan Patient Disposition: HOME (Self Care) Patient condition on transfer: Stable Prescriptions/Referrals Prescriptions/Med Rec: New isoniazid 300 mg Tablet 300 mg PO ACBR 150 Days Qty: 150 0RF rifampin 300 mg Capsule 600 mg PO QDAY 150 Days Qty: 300 0RF ethambutol 400 mg Tablet 1,200 mg PO QDAY 150 Days Qty: 450 0RF pyridoxine (vitamin B6) 50 mg Tablet 50 mg PO QDAY 150 Days Qty: 150 0RF pyrazinamide 500 mg Tablet 1,500 mg PO QDAY 150 Days Qty: 450 0RF Referrals: Burno Viveros MD [Physician] - No Primary/Family,Physician [Primary Care Provider] - Patient/Caregiver Discharge Instructions Other Discharge Activity Instructions:: Continue taking 4 anti-TB medications as prescribed including rifampin, isoniazid, pyrazinamide, ethambutol for five more months. You will also need to keep taking vitamin B6 (pyridoxine) during this TB treatment for 5 months. Follow up with infectious disease team in 1-2 weeks. Follow up with PCP in 1-2 weeks. Remain in isolation in chosen location until the county clears you. Contin?e tomando los cuatro medicamentos antituberculosos seg?n lo prescrito, incluyendo rifampicina, isoniazida, pirazinamida y etambutol, morgan manolo meses m?s. Tambi?n deber? seguir tomando vitamina B6 (piridoxina) morgan mohini tratamiento antituberculoso morgan 5 meses. Consulte con el equipo de enfermedades infecciosas en franki o dos semanas. Permanezca aislado en el lugar elegido hasta que el condado le d? el franko. Education Materials: Tuberculosis Prevent Spread, Medicine for Tuberculosis, Discharge Instructions for ..., Tuberculosis (TB) Print Language: Japanese Stand Alone Forms: Geovanna Award Info., Patient Portal Info Letter Discharge Order Discharge Orders: Discharge (Routine); Ordered 04/09/25 Ordered By: Jumana Oliveira Quality Discharge Quality Measures VTE prophylaxis Attestestation MD Attestation I have examined the patient, reviewed labs and imaging findings, discussed the case with the resident(s), and reviewed entered orders. I agree with the plan of care as outlined in this note. Time Spent: [address] Tyrell MD
== END 2025-04-09 13:15 | disposition home or self-care (01) | DRG 137 ==
LOC: SERX 18:07 → SERHOLD 18:55 → S3NX 21:53
PROVIDERS: Internal Medicine Infectious Disease; Physician Assistant; Student in an Organized Health Care Education/Training Program; Admitting Provider Student in an Organized Health Care Education/Training Program; Emergency Provider Emergency Medicine; Visit Provider Student in an Organized Health Care Education/Training Program
DX: A15.0 Tuberculosis of lung (principal); D72.829 Elevated white blood cell count, unspecified; D75.839 Thrombocytosis, unspecified; E86.0 Dehydration; G40.909 Epilepsy, unspecified, not intractable, without status epilepticus; J10.08 Influenza due to other identified influenza virus with other specified pneumonia; J15.212 Pneumonia due to Methicillin resistant Staphylococcus aureus; Z87.891 Personal history of nicotine dependence; Z78.9 Other specified health status
CPT/HCPCS: 36415; 71045; 71046; 71250; 80053; 80061; 80074; 83605; 83735; 84145; 84443; 85025; 86021; 86036; 86038; 86039; 86140; 86331; 86430; 86480; 86635; 86703; 87015; 87040; 87081; 87116; 87205; 87206; 87449; 87811; 89220; 93306; 96361; 96365; 99285; J0696; J1650; J3370; J7030; J7040; 94640; A9270

== ENCOUNTER 2025-08-20 01:40 | Emergency (ER) | payer MEDICAID, SELFPAY ==
[2025-08-20 01:42] VITALS: BP 142/84; PULSE 120; RESP 19; TEMP 36.5; O2SAT 95
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
== END 2025-08-20 02:16 ==
PROVIDERS: Emergency Provider Emergency Medicine
DX: Z02.89 Encounter for other administrative examinations (principal); Z04.1 Encounter for examination and observation following transport accident
CPT/HCPCS: 99281